=== PATIENT | male | born 1970 | race Caucasian/White ===

== ENCOUNTER 2019-12-31 09:18 | Outpatient (CLI) | payer BC, SELFPAY ==
[2019-12-31 09:34] LABS: Basophils Absolute Auto 0.03 K/mm3 (0.00-0.10); Basophils Percent Auto 0.5 % (0.0-1.0); Eosinophils Absolute Auto 0.14 K/mm3 (0.02-0.50); Eosinophils Percent Auto 2.4 % (1.0-6.0); Hematocrit 39.9 % (40.0-54.0); Hemoglobin 12.8 g/dL (14.0-18.0); Immature Granulocyte Absolute 0.02 K/mm3 (0.00-0.00); Immature Granulocyte Percent A 0.3 % (0.0-0.0); Lymphocytes Absolute Auto 1.71 K/mm3 (1.10-4.50); Lymphocytes Percent Auto 29.8 % (18.0-42.0); Mean Corpuscular HGB Conc 32.1 g/dL (32.0-36.0); Mean Corpuscular Hemoglobin 28.3 pg (27.0-31.0); Mean Corpuscular Volume 88.1 fL (78.0-102.0); Mean Platelet Volume 9.4 fl (8.7-11.0); Monocytes Absolute Auto 0.51 K/mm3 (0.10-0.90); Monocytes Percent Auto 8.9 % (2.0-11.0); Neutrophils Absolute Auto 3.3 K/mm3 (1.7-7.2); Neutrophils Percent Auto 58.1 % (50.0-70.0); Platelet Count Result 288 K/mm3 (150-420); Red Blood Count 4.53 M/mm3 (4.70-6.10); Red Cell Distribution Width 13.6 % (11.6-14.4); White Blood Count 5.7 K/mm3 (4.8-10.8)
[2019-12-31 10:33] LABS: Rheumatoid Factor Screen Negative (Negative)
[2019-12-31 11:02] LABS: Alanine Aminotransferase 24 U/L (16-63); Albumin Level 3.1 g/dL (3.4-5.0); Alkaline Phosphatase 87 U/L (46-116); Anion Gap 9 mmol/L (8-16); Aspartate Amino Transferase 19 U/L (15-37); Bilirubin,Total 0.2 mg/dL (0.00-1.00); Blood Urea Nitrogen 27 mg/dL (7-18); Calcium 8.4 mg/dL (8.5-10.1); Carbon Dioxide 27 mmol/L (21-32); Chloride 105 mmol/L (98-108); Cholesterol 135 mg/dL (0-200); Estimated Glomerular Filt Rate > 60; Glucose 84 mg/dL (70-99); HDL Direct 54 mg/dL (40-60); LDL Cholesterol Calculated 74 mg/dL (<130); Osmolality Calculated 296 mOsm/kg (285-295); Potassium 4.1 mmol/L (3.5-5.1); Sodium 141 mmol/L (136-145); Total Protein 6.7 g/dL (6.4-8.2); Triglycerides 37 mg/dL (0-150); Uric Acid 10.7 mg/dL (3.5-7.2)
== END 2019-12-31 09:19 | disposition home or self-care (01) ==
PROVIDERS: PCP Nurse Practitioner Family; Visit Provider Nurse Practitioner Family
DX: M10.9 Gout, unspecified (principal); M25.50 Pain in unspecified joint; I10 Essential (primary) hypertension; Z12.11 Encounter for screening for malignant neoplasm of colon; Z12.12 Encounter for screening for malignant neoplasm of rectum
CPT/HCPCS: 36415; 80053; 80061; 84550; 85025; 86430

== ENCOUNTER 2020-03-25 10:57 | Outpatient (CLI) | payer BC, SELFPAY ==
[2020-03-27 15:56] LABS: SARS-CoV-2 RNA PCR Negative
== END 2020-03-25 10:58 | disposition home or self-care (01) ==
LOC: CHSLAB 10:59
PROVIDERS: PCP Family Medicine; Visit Provider Family Medicine
DX: U07.1 COVID-19 (principal)
CPT/HCPCS: 87635; C9803; U0003

== ENCOUNTER 2020-10-06 11:52 | Outpatient (CLI) | payer OTHER, SELFPAY ==
[2020-10-06 12:09] LABS: Basophils Absolute Auto 0.04 K/mm3 (0.00-0.10); Basophils Percent Auto 0.7 % (0.0-1.0); Eosinophils Absolute Auto 0.18 K/mm3 (0.02-0.50); Eosinophils Percent Auto 3.1 % (1.0-6.0); Hematocrit 43.2 % (40.0-54.0); Hemoglobin 15.1 g/dL (14.0-18.0); Immature Granulocyte Absolute 0.02 K/mm3 (0.00-0.00); Immature Granulocyte Percent A 0.3 % (0.0-0.0); Lymphocytes Absolute Auto 0.89 K/mm3 (1.10-4.50); Lymphocytes Percent Auto 15.2 % (18.0-42.0); Mean Corpuscular Hemoglobin 30.9 pg (27.0-31.0); Mean Corpuscular Volume 88.5 fL (78.0-102.0); Mean Platelet Volume 9.3 fl (8.7-11.0); Monocytes Absolute Auto 0.52 K/mm3 (0.10-0.90); Monocytes Percent Auto 8.9 % (2.0-11.0); Neutrophils Absolute Auto 4.2 K/mm3 (1.7-7.2); Neutrophils Percent Auto 71.8 % (50.0-70.0); Platelet Count Result 287 K/mm3 (150-420); Red Blood Count 4.88 M/mm3 (4.70-6.10); Red Cell Distribution Width 12.3 % (11.6-14.4); White Blood Count 5.8 K/mm3 (4.8-10.8)
[2020-10-06 12:54] LABS: Rheumatoid Factor Screen Negative (Negative)
[2020-10-06 13:11] LABS: Alanine Aminotransferase 25 U/L (16-63); Albumin Level 3.6 g/dL (3.4-5.0); Alkaline Phosphatase 90 U/L (46-116); Anion Gap 10 mmol/L (8-16); Aspartate Amino Transferase 19 U/L (15-37); Bilirubin,Total 0.4 mg/dL (0.00-1.00); Blood Urea Nitrogen 18 mg/dL (7-18); Calcium 8.8 mg/dL (8.5-10.1); Carbon Dioxide 27 mmol/L (21-32); Chloride 100 mmol/L (98-108); Cholesterol 149 mg/dL (0-200); Estimated Glomerular Filt Rate > 60; Glucose 91 mg/dL (70-99); HDL Direct 50 mg/dL (40-60); LDL Cholesterol Calculated 89 mg/dL (<130); Osmolality Calculated 285 mOsm/kg (285-295); Potassium 4.7 mmol/L (3.5-5.1); Sodium 137 mmol/L (136-145); Thyroid Stimulating Hormone 0.63 uIU/mL (0.36-3.74); Triglycerides 52 mg/dL (0-150)
[2020-10-06 14:56] LABS: Erythrocyte Sedimentation Rate 17 mm/hr (0-20)
[2020-10-16 09:51] LABS: ANA Cascade Screen Negative (Negative)
== END 2020-10-06 11:53 | disposition home or self-care (01) ==
LOC: CHSLAB 11:56
PROVIDERS: PCP Nurse Practitioner Family; Visit Provider Nurse Practitioner Family
DX: M25.50 Pain in unspecified joint (principal); I10 Essential (primary) hypertension
CPT/HCPCS: 36415; 80053; 80061; 84443; 85025; 85652; 86038; 86430

== ENCOUNTER 2020-11-01 12:03 | Outpatient (CLI) | payer OTHER, SELFPAY ==
--- NOTE | ~2020-11-01 | XR_ITS ---
XR hand BI arthritis min 3V DATE: 11/01/2020 12:30 INDICATION: Bilateral hand swelling, pain TECHNIQUE: 4 views of each hand COMPARISON: None FINDINGS: Right hand: There is polyarticular osteoarthritis, particularly at the second and fifth metacarpophalangeal joint s and proximal interphalangeal joint of the second digit. No fracture or dislocation, periosteal reaction or bone destruction. Left hand: Osteoarthritic change is noted at the third metacarpophalangeal joint and proximal interphalangeal cyndi int of the third digit primarily. No fracture, dislocation, periosteal reaction or bone destruction. IMPRESSION: Bilateral osteoarthritis, right greater than left Reviewed, dictated and finalized at location A.
[2020-11-01 12:39] LABS: Uric Acid 10.2 mg/dL (3.5-7.2)
[2020-11-01 13:29] LABS: Erythrocyte Sedimentation Rate 32 mm/hr (0-20)
[2020-11-04 10:59] LABS: CRP, High Sensitivity >10.0 mg/L (***)
== END 2020-11-01 12:04 | disposition home or self-care (01) ==
LOC: CHSLAB 12:06
PROVIDERS: PCP Nurse Practitioner Family; Visit Provider Nurse Practitioner Family
DX: M25.50 Pain in unspecified joint (principal); M79.643 Pain in unspecified hand
CPT/HCPCS: 36415; 73130; 84550; 85652; 86141

== ENCOUNTER 2021-01-20 14:20 | Outpatient (CLI) | payer OTHER, SELFPAY ==
--- NOTE | ~2021-01-20 | XR_ITS ---
EXAMINATION: XR knee LT 3V DATE: 01/20/2021 15:00 INDICATION: Left knee pain. Fall. TECHNIQUE: 3 views of left knee on 4 radiographs were obtained. COMPARISON: None. FINDINGS: Bone alignment is normal. No fracture. There is mild tricompartmental osteoarthritis charac terized by tiny marginal osteophytes. No joint space. No knee joint effusion. There is prepatellar so ft tissue swelling. IMPRESSION: 1. Mild left knee osteoarthritis. Reviewed, dictated and finalized at location A.
--- NOTE | ~2021-01-20 | XR_ITS ---
EXAMINATION: XR elbow LT min 3V DATE: 01/20/2021 14:59 INDICATION: Left elbow pain. Fall. TECHNIQUE: 4 views of left elbow were obtained. COMPARISON: None. FINDINGS: Bone alignment is normal. No fracture. Joint spaces are well maintained. There is no elbow joint effusion. There is soft tissue swelling overlying the olecranon. IMPRESSION: 1. No fracture. Reviewed, dictated and finalized at location A. IMPRESSION: 1. No fracture.
[2021-01-20 14:35] LABS: Hematocrit 45.9 % (40.0-54.0); Hemoglobin 15.8 g/dL (14.0-18.0); Mean Corpuscular HGB Conc 34.4 g/dL (32.0-36.0); Mean Corpuscular Hemoglobin 30.3 pg (27.0-31.0); Mean Corpuscular Volume 87.9 fL (78.0-102.0); Mean Platelet Volume 9.9 fl (8.7-11.0); Platelet Count Result 244 K/mm3 (150-420); Red Blood Count 5.22 M/mm3 (4.70-6.10); Red Cell Distribution Width 13.3 % (11.6-14.4); White Blood Count 12.2 K/mm3 (4.8-10.8)
[2021-01-20 16:23] LABS: Alanine Aminotransferase 33 U/L (16-63); Albumin Level 3.9 g/dL (3.4-5.0); Alkaline Phosphatase 87 U/L (46-116); Anion Gap 13 mmol/L (8-16); Aspartate Amino Transferase 15 U/L (15-37); Bilirubin,Total 0.7 mg/dL (0.00-1.00); Blood Urea Nitrogen 26 mg/dL (7-18); Calcium 8.9 mg/dL (8.5-10.1); Carbon Dioxide 24 mmol/L (21-32); Chloride 100 mmol/L (98-108); Estimated Glomerular Filt Rate > 60; Glucose 183 mg/dL (70-99); Osmolality Calculated 293 mOsm/kg (285-295); Potassium 4.7 mmol/L (3.5-5.1); Sodium 137 mmol/L (136-145); Total Protein 7.1 g/dL (6.4-8.2)
--- NOTE | 2021-01-24 08:35 | WPDHOLTEREM ---
Holter/Event Monitor Holter/Event Monitor Date of procedure: 01/20/21 Holter/Event Procedure: 48 Hr Holter Monitor Indications: Syncope Conclusion: 1. 48 hour holter monitor on 01/20/21. 2. Predominant rhythm is sinus rhythm. HR range 60-140 bpm; average HR 88 bpm. 3. There are 50 premature supraventricular complexes and 1 supraventricular couplet. There is one episode of atrial tachycardia at 154 bpm lasting 10 beats at 08:58. 4. There are 2 premature ventricular complexes. No ventricular tachycardia. 5. No sinoatrial or atrioventricular blocks. No significant pauses greater than 2 seconds. 6. Patient reports symptoms of anxious/hot, dizziness/weak, chest heaviness which demonstrate sinus rhythm, HR range 88-106 bpm.
== END 2021-01-20 14:21 | disposition home or self-care (01) ==
PROVIDERS: PCP Family Medicine; Visit Provider Family Medicine
DX: R55 Syncope and collapse (principal); M25.522 Pain in left elbow; M25.562 Pain in left knee
CPT/HCPCS: 36415; 73080; 73562; 80053; 85027; 93225; 93226

== ENCOUNTER 2021-01-26 13:14 | Outpatient (CLI) | payer OTHER, SELFPAY ==
--- NOTE | 2021-01-26 14:09 | ECHO_ITS ---
Patient Info Name: Ap Briscoe Age: 50 years : 1970 Gender: Male Ht: 71 in Wt: 283 lbs BSA: 2.59 m2 HR: 89 bpm BP: 128 / 79 mmHg Exam Date: 01/26/2021 1:16 PM Exam Location: [facility] Patient Status: Outpatient Admit Date: 01/26/2021 Staff Ordering Physician: Angelo Morgan DO Master Scheduler: Justice Ochoa RDCS, RT Attending Provider: Angelo Morgan DO Referring Physician: Cathy ESCOBAR; Exam Type: CA echo doppler color flow Study Info Indications R55 - Syncope and collapse Complete two-dimensional, color flow and Doppler transthoracic echocardiogram is performed. Strain analysis performed. Summary 1. Complete two-dimensional, color flow and Doppler transthoracic echocardiogram is performed. 2. Left ventricular chamber dimension is normal. 3. Left ventricular systolic function is normal, estimated at 55-60%. 4. The left ventricular diastolic function is normal. 5. E/e' 9 is minimally elevated. 6. Global longitudinal strain is abnormal at -14.2%. Left Ventricle E/e' 9 is minimally elevated. Global longitudinal strain is abnormal at -14.2%. Left ventricular chamber dimension is normal. Left ventricular systolic function is normal, estimated at 55-60%. The left ventricular diastolic function is normal. Right Ventricle Right ventricular systolic function is normal and with normal TAPSE 2.0 cm. Right ventricular chamber dimension is normal. Left Atria Left atrial chamber dimension is normal. Right Atria Right atrial chamber dimension is normal. Aortic Valve The aortic valve is trileaflet. There is no aortic valve stenosis. There is no aortic valve regurgitation. Pulmonic Valve There is no pulmonic regurgitation. Mitral Valve There is no mitral valve stenosis. There is no mitral valve regurgitation. Tricuspid Valve There is no tricuspid valve regurgitation. Pericardium/Pleural There is no pericardial effusion. Inferior Vena Cava Normal inferior vena cava with >50% collapse upon inspiration consistent with normal right atrial pressure, 5 mmHg. Aorta The aortic root size at the sinus of Valsalva is normal. Left Ventricular Outflow Tract Name Value Normal LVOT 2D LVOT Diameter 2.1 cm LVOT Doppler LVOT Peak Velocity 115 cm/s LVOT Peak Gradient 5 mmHg LVOT Mean Gradient 2 mmHg LVOT VTI 20 cm LVOT VTI/AV VTI Ratio 0.8 LVOT Stroke Volume 73 ml Mitral Valve Name Value Normal MV Doppler MV Decel Story 425 cm/s2 MV PHT 65 ms MV Area (PHT) 3.4 cm2 4.0-5.0 MV Diastolic Function
== END 2021-01-26 13:15 | disposition home or self-care (01) ==
PROVIDERS: PCP Nurse Practitioner Family; Visit Provider Family Medicine
DX: R55 Syncope and collapse (principal)
CPT/HCPCS: 93306

== ENCOUNTER 2021-02-01 10:16 | Outpatient (CLI) | payer OTHER, SELFPAY ==
--- NOTE | ~2021-02-01 | MR_ITS ---
EXAMINATION: MR knee LT wo con DATE: 02/01/2021 11:06 INDICATION: Anterior left knee pain TECHNIQUE: Magnetic resonance imaging (MRI) of the left knee was performed without intravenous contra st. Sequences included coronal PD-weighted FSE, coronal PD-weighted FS FSE, sagittal T2-weighted FSE , sagittal PD-weighted FS FSE and axial PD weighted fat saturated FSE. COMPARISON: Left knee radiographs dated 01/20/2021 FINDINGS: Medial compartment: Longitudinal horizontal tear extending to the inferior articular surface near the free edge of the po sterior horn of the medial meniscus. Partial-thickness chondral ulceration with mild chondral surfac e regularity and minimal subarticular edema along the lateral rim of the anterior to central weightbe aring medial femoral condyle. Mild subarticular edema along the posterior medial rim of the medial ti bial plateau with subtle concavity of the overlying articular cortex. The contour abnormality suspici ous for minimally depressed fracture although the degree of fluid signal is significantly less than w ould be expected for an acute injury. There is an osteochondral lesion with double line sign at the p osterior weightbearing lateral femoral condyle which measures 13 mm craniocaudal and 7 mm medial to l ateral. No disruption of the cortex, cartilage or fluid signal intensity cleft to suggest an unstable fragment in situ. Lateral compartment: Lateral meniscus is normal. Small region of deep chondral fissuring with mild underlying subarticular cystic change at the lateral tibial plateau underlying the anterior margin of the posterior horn of the lateral meniscus. Patellofemoral compartment: Patellar chondral ulceration and fissuring centered at the patellar apical ridge and medial side of t he lateral patellar facet where it reaches full-thickness with underlying cortical irregularity and s ubarticular cystic change. Trochlear cartilage is normal. Ligaments and tendons: Anterior and posterior cruciate ligaments are normal. The medial collateral ligament and fibular jeferson ateral ligament complex are normal. Mild tendinopathy without discrete tear at the distal quadriceps and proximal patellar tendons. The visualized medial and lateral hamstring tendons as well as the thom otibial band are normal. Fluid: Minimal left knee joint effusion at the medial and lateral gutters of the suprapatellar pouch. No loo se osteochondral bodies identified. Mild prepatellar edema without a discrete bursal fluid collection . Osseous/other: Bone alignment is normal. No acute fracture or pathologic marrow replacing process. IMPRESSION: 1. Longitudinal horizontal tear of the posterior horn of the medial meniscus. 2. Patellofemoral predominant tricompartmental osteoarthritis with high-grade patellar chondromalacia and more subtle small regions of high-grade chondral malacia along the lateral tibial plateau and we ightbearing medial femoral condyle. 3. Small stable appearing osteochondral lesion along the articular cortex of the posterior weightbear ing medial femoral condyle. 4. Minimal edema underlying a subtle shallow concavity along the articular cortex at the posterior me dial rim of the medial tibial plateau which suggests a subacute to early chronic impaction, stress or insufficiency fracture. Reviewed, dictated and finalized at location A. IMPRESSION: 1. Longitudinal horizontal tear of the posterior horn of the medial meniscus. 2. Patellofemoral predominant tricompartmental osteoarthritis with high-grade p atellar chondromalacia and more subtle small regions of high-grade chondral mal acia along the lateral tibial plateau and weightbearing medial femoral condyle. 3. Small stable appearing osteochondral lesion along the articu
== END 2021-02-01 10:17 | disposition home or self-care (01) ==
LOC: CHSIMG 10:18
PROVIDERS: PCP Family Medicine; Visit Provider Family Medicine
DX: M25.562 Pain in left knee (principal)
CPT/HCPCS: 73721

== ENCOUNTER 2021-02-06 08:42 | Outpatient (CLI) | payer OTHER, SELFPAY ==
--- NOTE | 2021-02-06 08:47 | EST_ITS ---
Patient Info Name: Ap Briscoe Age: 50 years : 1970 Gender: Male Ht: 71 in Wt: 283 lbs BSA: 2.59 m2 HR: 60 bpm BP: 104 / 58 mmHg Heart Rhythm: Sinus Rhythm Technical Quality: Excellent Exam Date: 02/06/2021 9:42 AM Exam Location: [facility] Patient Status: Outpatient Admit Date: 02/06/2021 Staff Ordering Physician: Angelo Morgan DO Attending Provider: Angelo Morgan DO Exercise Technologist: Gia Hatch CRT Exercise Physician: Beba Schmidt CEP Exam Type: CA stress sage w NM Study Info Indications Syncope - A nuclear stress test was performed. History/Risk Factors Hypertension: Yes Tobacco Use: Former Dialysis: None History/Risk Factors Hypertension. Former Smoker. Summary 1. 1. Negative lexiscan stress test for ischemic ST changes by ECG criteria. 2. 2. Stable hemodynamics throughout the test. 3. 3. Nuclear scan to follow and will be reported separately. Please correlate with it. Protocol: LEXISCAN Stress ECG Details Stage: REST Duration (min): 1 min : 24 sec HR (bpm): 58 SBP (mmHg): 104 DBP (mmHg): 58 Stage: REST Duration (min): 4 min : 57 sec HR (bpm): 68 SBP (mmHg): 104 DBP (mmHg): 58 Stage: STAGE 1 Duration (min): 0 min : 11 sec HR (bpm): 60 SBP (mmHg): 104 DBP (mmHg): 58 Stage: RECOVERY Duration (min): 0 min : 48 sec HR (bpm): 95 SBP (mmHg): 104 DBP (mmHg): 58 Stage: RECOVERY Duration (min): 1 min : 48 sec HR (bpm): 93 SBP (mmHg): 106 DBP (mmHg): 58 Stage: RECOVERY Duration (min): 2 min : 48 sec HR (bpm): 83 SBP (mmHg): 98 DBP (mmHg): 56 Stage: RECOVERY Duration (min): 3 min : 48 sec HR (bpm): 92 SBP (mmHg): 99 DBP (mmHg): 56 Stage: RECOVERY Duration (min): 4 min : 48 sec HR (bpm): 88 SBP (mmHg): 101 DBP (mmHg): 56 Stage: RECOVERY Duration (min): 5 min : 48 sec HR (bpm): 77 SBP (mmHg): 98 DBP (mmHg): 59 Stage: RECOVERY Duration (min): 6 min : 2 sec HR (bpm): 88 SBP (mmHg): 98 DBP (mmHg): 59 Rest HR: 68 bpm Peak HR: 97 bpm Rest Sys BP: 104 mmHg Peak Sys BP: 106 mmHg Max Pred HR: 169 bpm % Max Pred HR: 57 % Target HR: 144 bpm Max RPP: 10,282 bpm*mmHg Termination Reason: Completion of Protocol Cardiac Symptoms: Dyspnea Total Time: 0 min : 11 sec Rest Trimble BP: 58 mmHg Peak Trimble BP: 58 mmHg Total Dose: 0.4 mg Resting ECG Normal sinus rhythm, low voltage in precordial leads. Stress ECG No ST changes. Arrhythmias No arrhythmias were observed during the examination. Report Signatures
--- NOTE | 2021-02-06 13:27 | WPDCARIOSTRE ---
Nuclear Stress Test INDICATIONS Indications: Syncope PROCEDURE Procedure Performed: Myocardial Perf Spect-Multi Procedure: Patient underwent a lexiscan stress test and immediately was injected with 34.3 mCi of cardiolyte. Multiple tomographic images are obtained. These are of good quality. There is evidence of large size, severe inferior perfusion defect and small size, mild anterior perfusion defect with stress imaging. A separate resting images were obtained after patient was injected with 10.5 mCi of cardiolyte. Multiple tomographic images are obtained. These are of good quality. There is evidence of large size, severe inferior perfusion defect with rest imaging. CONCLUSION Conclusion: 1. Abnormal myocardial perfusion imaging demonstrating small size, mild anterior perfusion defect consistent with reversible ischemia. There is evidence of fixed large size inferior defect suggestive of diaphragmatic attenuation artifact. 2. Left ventriculogram demonstrates normal measured ejection fraction at 52%. No wall motion abnormalities. 3. TID score is normal at 1.19.
== END 2021-02-06 08:43 | disposition home or self-care (01) ==
LOC: CHSIMG 08:44
PROVIDERS: PCP Family Medicine; Visit Provider Family Medicine
DX: R06.02 Shortness of breath (principal)
CPT/HCPCS: 78452; 93017; A9502; J2785

== ENCOUNTER → 2021-02-27 03:35 | Outpatient (CLI) | payer OTHER, SELFPAY ==
[2021-02-27 20:20] LABS: SARS-CoV-2 RNA PCR Negative
== END ==
PROVIDERS: PCP Family Medicine; Visit Provider Internal Medicine Cardiovascular Disease
DX: Z01.812 Encounter for preprocedural laboratory examination (principal); Z20.822 Contact with and (suspected) exposure to COVID-19
CPT/HCPCS: C9803; U0003; U0005

== ENCOUNTER 2021-03-02 00:54 | Day surgery (SDC) | payer OTHER, SELFPAY ==
[2021-03-01 14:40] VITALS: BMI 42.0
[2021-03-02] VITALS (9 sets, daily range): BP systolic 123–135; BP diastolic 73–96; PULSE 55–73; RESP 12–16; TEMP 36.4; O2SAT 93–98; BMI 43.3
[2021-03-02 09:46] LABS: Basophils Percent Auto 0.4 % (0.2-1.2); Hemoglobin 15.3 g/dL (14.0-18.0); Immature Granulocyte Absolute 0.15 K/mm3 (0.00-0.031); Immature Granulocyte Percent A 1.9 % (0-0.5); Lymphocytes Absolute Auto 0.79 K/mm3 (0.9-3.2); Mean Corpuscular Hemoglobin 31.2 pg (26-34); Mean Corpuscular Volume 91.8 fl (80-100); Mean Platelet Volume 9.5 fl (7.4-10.4); Monocytes Absolute Auto 0.4 K/mm3 (0.1-0.6); Monocytes Percent Auto 5.2 % (2.6-8.5); Neutrophils Absolute Auto 6.5 K/mm3 (1.3-6.7); Neutrophils Percent Auto 82.5 % (45.5-73.1); Platelet Count Result 290 k/mm3 (150-375); Red Cell Distribution Width 14.5 % (11.5-14.5); White Blood Count 7.9 K/mm3 (4.5-10.0)
[2021-03-02 09:56] LABS: Anion Gap 10 mmol/L (8-16); Blood Urea Nitrogen 21 mg/dL (9-20); Calcium 9.4 mg/dL (8.4-10.2); Carbon Dioxide 24 mmol/L (22-30); Chloride 103 mmol/L (98-107); Estimated CRCL calculation 122 ml/min; Estimated Glomerular Filt Rate > 60; Glucose 139 mg/dL (65-110); INR 0.9; Potassium 4.4 mmol/L (3.4-5.0); Prothrombin Time 11.8 Seconds (11.1-14.7); Sodium 137 mmol/L (137-145)
--- NOTE | 2021-03-02 10:05 | WPDHPUPDATE1 ---
History and Physical Update Update Date/Time: 03/02/21 10:05 History and Physical has been reviewed, including an updated exam of the patient. There are NO changes in the patient's condition. Risks, benefits, and alternatives have been discussed and questions answered. Patient agrees to proceed with procedure.
--- NOTE | 2021-03-02 10:05 | WPDMODSED ---
Moderate Sedation Note-Pt Data Patient Data Allergies Allergy/AdvReac Type Severity Reaction Status Date / Time No Known Allergies Allergy Verified 03/01/21 14:27 Home Medications Medication Instructions Recorded Confirmed Type lisinopril 20 1 tablet PO DAILY #90 tablet 04/28/20 03/01/21 Rx mg-hydrochlorothiazide 25 mg tablet tizanidine 2 mg capsule 2 mg PO TID PRN #30 cap 04/28/20 03/01/21 Rx allopurinol 100 mg tablet See Rx Instructions .ROUTE 01/11/21 03/01/21 History .COMPLEX tablet colchicine 0.6 mg tablet 0.6 mg PO DAILY PRN tablet MDD 4 01/11/21 03/01/21 History meclizine 25 mg tablet 25 mg PO BID PRN #30 tablet 01/11/21 03/01/21 Rx prednisone 10 mg tablet 5 mg PO DAILY tablet 01/11/21 03/01/21 History tramadol 50 mg tablet 50 mg PO Q8H PRN tablet 01/11/21 03/01/21 History aspirin 81 mg tablet,delayed 81 mg PO DAILY #90 tablet 02/07/21 03/01/21 Rx release atorvastatin 40 mg tablet 40 mg PO DAILY #90 tablet 02/07/21 03/01/21 Rx venlafaxine 75 mg capsule,extended See Rx Instructions .ROUTE 02/27/21 03/01/21 Rx release 24 hr .COMPLEX #30 cap Current Medications: Active Medications Sodium Chloride (Normal Saline Iv) 500 mls @ 100 mls/hr IV CONT .Q5H TERESO Sedation/Anesthesia: No previous sedation/anesthesia problems (including family history). [facility] Past Medical History Medical History Benign hypertension (04/11/11) Depression Diffuse arthralgia (04/09/13) Exposure to COVID-19 virus Gout, unspecified (02/11/15) Intermittent claudication (03/06/13) Right sided sciatica Family History Family History Father , 53 Family history of coronary artery disease Acute myocardial infarction Mother , 61 Brain tumor Social History Social History Smoking status: Former smoker Alcohol intake: current Substance use: never Substance use type: does not use Gender identity (if verbalized by the patient): Male Mod Sed Physical Exam Physical Exam Pre Procedural Exam: Normal: Appearance, Eyes, Ears, Nose, Neck, Throat, Airway, Lungs, Heart Size, Heart Rate, Heart Rhythm, Neuro Exam, Abdomen, Liver, Kidneys, Spleen, Breasts, Genitalia, Extremities and Skin Hours since solid foods: 8 Hours since liquid intake: 8 Mallampati Classification: class 1 Internal Medicine - PN: Obj Da Vital Signs Vital Signs: Vital Signs - 24 hr 03/02/21 09:49 Temperature 36.4 C Pulse Rate 72 Respiratory Rate 12 Blood Pressure 123/80 Pulse Oximetry 97 Meds/Results Medications: Active Medications Generic Name Dose Route Start Last Admin Trade Name Freq PRN Reason Stop Dose Admin Sodium Chloride 500 mls @ 100 mls/hr 03/02/21 09:00 Normal Saline Iv IV CONT .Q5H TERESO Labs CBC & Chem 7: 03/02/21 09:36 03/02/21 09:37 Labs: Laboratory Results - last 24 hr 03/02/21 03/02/21 03/02/21 09:36 09:37 09:37 WBC 7.9 RBC 4.90 Hgb 15.3 Hct 45.0 MCV 91.8 MCH 31.2 MCHC 34.0 RDW 14.5 Plt Count 290 MPV 9.5 Immature Gran % (Auto) 1.9 H Neut % (Auto) 82.5 H Lymph % (Auto) 10.0 L [place] % (Auto) 5.2 Eos % (Auto) 0.0 Baso % (Auto) 0.4 Lymph # (Auto) 0.79 L [place] # (Auto) 0.4 Eos # (Auto) 0.0 Baso # (Auto) 0.0 Abs Immat Gran (auto) 0.15 H Absolute Neuts (auto) 6.5 Absolute Nucleated RBC 0.0 Nucleated RBC % 0.0 PT 11.8 INR 0.9 Sodium 137 Potassium 4.4 Chloride 103 Carbon Dioxide 24 Anion Gap 10 BUN 21 H Creatinine 0.90 Estim Creat Clear Calc 122 Estimated GFR > 60 Glucose 139 H Calcium 9.4 ASA Classification/Sedation ASA Classification/Sedation ASA Class: I Emergent: No Risks: Risks, benefits and alternatives explained and patient/family accepted plan for sedati
--- NOTE | 2021-03-02 10:05 | WPDCARDPROC ---
Cardiac Cath Procedure Note Date of procedure:: 03/02/21 Performing physician:: Luis Armando Morrison MD Date of service 03/02/2021 Indication:: syncope Brief clinical history:: 50 old patient with past history of obesity, gout, hypertension, who had couple episodes of syncope. Then he experiences chest discomfort on exertion with shortness of breath. Underwent stress test that shows anterior ischemia. Strong family history for CAD. He smoked for a total of 15 years and quit several years ago. Procedure Procedure performed:: 1-Moderate sedation that started at and ended at using mg of Versed and mg fentanyl. The registered nurse was 2-Selective left and right coronary angiogram. 3-Left heart catheterization with measurement of LVEDP and measurement of gradient across aortic valve. 4- LV angiogram. 4-Right common femoral arterial angiogram. 5-Deployment of 6 Yoruba Angio-Seal. Sedation/Medication given:: Moderate sedation. Access site:: Right common femoral artery. Estimated blood loss:: 10cc Procedure note:: After informed consent patient was brought in to quality assurance qa lab technician with the was draped and prepped in usual manner. Moderate sedation was given and the right groin was infiltrated using 1% lidocaine. Five Yoruba sheath was obtained using micropuncture needle and the modified Seldinger technique. Selective left coronary angiogram was done using JL4 catheter with the tip of the catheter placed in the left main coronary artery. Selective right coronary angiogram was done using JR4 catheter with the tip of the catheter placed to the right coronary artery. After that 5 Yoruba pigtail catheter was advanced across the aortic valve into the left ventricle with measurement of LVEDP and measurement of gradient across aortic valve. LV angiogram was done as well.Right common femoral arterial angiogram was done. Findings:: 1- left coronary artery is a large artery that divides into large LAD, large circumflex artery. Left main is Free of disease. It is a short artery. 2- left anterior descending artery is a large artery that runs It stops before the apex. Free of disease. Small diagonal 1 branch looks unremarkable and medium to large diagonal 2 branch looks unremarkable. 3- leftcircumflex artery is a large artery And codominant and free of disease. Large OM1 and OM2 free of disease and small to medium size left PDA looks unremarkable. 4- right coronary artery is Medium-sized artery and codominant and free of disease. 5- LVEDP was 15 mmHg and no gradient across aortic valve. 6- opening arterial pressure was 130/80 and closing pressure was 120/80. 7- LV angiogram shows normal LV systolic function and normal ascending aorta. 7- right femoral artery angiogram shows no significant disease in the right common femoral artery. Conclusion:: - no coronary artery disease. - false-positive stress test. Assessment and Plan Additional Plan continue aggressive risk factor modification for CAD. - encourage weight loss
--- NOTE | 2021-03-02 13:32 | SUR.PHASEII ---
Addendum entered by Enrike Feng RN 03/02/21 13:42: Pt departs via wheelchair to private car where is to drive patient home from today's visit. Pt aware he is not to drive. Original Note: DC instructions, limitations and restrictions reviewed with patient. Pt verbalized understanding of instructions. All of pt. questions answered. Site remains free of pain, soft and nontender. Dressing is clean, dry, and intact. IV removed, catheter intact, bleeding controlled. VSS at MS.
== END 2021-03-02 13:32 | disposition home or self-care (01) ==
PROVIDERS: PCP Family Medicine; Visit Provider Internal Medicine Cardiovascular Disease
PROC: 4A023N7 Measurement of Cardiac Sampling and Pressure, Left Heart, Percutaneous Approach (ICD-10-PCS; CPT 93452; principal; 2021-03-02 10:30)
DX: R94.39 Abnormal result of other cardiovascular function study (principal); R55 Syncope and collapse; R07.89 Other chest pain; R06.02 Shortness of breath; I10 Essential (primary) hypertension; M10.9 Gout, unspecified; F32.9 Major depressive disorder, single episode, unspecified; Z82.49 Family history of ischemic heart disease and other diseases of the circulatory system; E66.9 Obesity, unspecified; Z68.41 Body mass index [BMI] 40.0-44.9, adult; Z79.82 Long term (current) use of aspirin; Z87.891 Personal history of nicotine dependence
CPT/HCPCS: 36415; 80048; 85025; 85610; 93458; C1760; C1887; C1894; C9803; G0269; J1644; J2250; J3010; J7040; U0003; U0005

== ENCOUNTER 2021-04-26 11:36 | Outpatient (CLI) | payer OTHER, SELFPAY ==
--- NOTE | ~2021-04-26 | XR_ITS ---
EXAMINATION: XR lumbar spine min 4V DATE: 04/26/2021 12:09 INDICATION: Low back pain TECHNIQUE: Anteroposterior, lateral, and bilateral oblique views of the lumbar spine, and cone-down l ateral view of the lumbosacral junction were obtained. COMPARISON: None. FINDINGS: Mild lumbar levocurvature is noted. There is no fracture, dislocation, or subluxation. The vertebral body heights and alignment are normal. There is mild loss of intervertebral disc space heig ht at L4-5 and L5-S1. Small degenerative osteophytes project from the anterior endplates of multiple vertebral bodies. IMPRESSION: 1. Mild lumbar spondylosis without acute findings. Reviewed, dictated and finalized at location A. NSION WORKER
[2021-04-26 12:23] LABS: Uric Acid 5.4 mg/dL (3.5-7.2)
== END 2021-04-26 11:37 | disposition home or self-care (01) ==
LOC: CHSLAB 11:39
PROVIDERS: PCP Family Medicine; Visit Provider Internal Medicine Rheumatology
DX: M10.9 Gout, unspecified (principal); M51.36 Other intervertebral disc degeneration, lumbar region; M54.16 Radiculopathy, lumbar region
CPT/HCPCS: 36415; 72110; 84550

== ENCOUNTER 2021-06-26 09:24 | Outpatient (CLI) | payer OTHER, SELFPAY ==
[2021-06-26 10:34] LABS: SARS-CoV-2 Ag Negative (Negative)
== END 2021-06-26 09:25 | disposition home or self-care (01) ==
LOC: CHSLAB 09:28
PROVIDERS: PCP Family Medicine; Visit Provider Internal Medicine Critical Care Medicine
DX: Z01.812 Encounter for preprocedural laboratory examination (principal); Z20.822 Contact with and (suspected) exposure to COVID-19
CPT/HCPCS: 87426; C9803

== ENCOUNTER 2021-06-28 19:29 | Outpatient (CLI) | payer OTHER, SELFPAY ==
--- NOTE | 2021-07-07 14:34 | WPDSLEEPSTUD ---
Sleep Study Date of Study: 06/28/21 Ordering Provider: Felice Edmondson APRN Interpreting Physician: Anna Avina MD Sleep Study Type: CPAP Titration Height: 1.8 m Weight: 142.882 kg Body Mass Index: 43.9 Neck Circumference (inches): 18 [place]: 14 Reason for Sleep Study Home sleep test with severe obstructive sleep apnea, now presents for a CPAP titration * 04/18/2021 [facility] Home sleep test with apnea-hypopnea index 38.7 lowest saturation 73% with 56 minutes below 88%. Sleep History Ap Briscoe Jr is a 51 year old man with constant loud snoring that causes others to complain. He frequently awakens at night with heartburn, belching or coughing. He rarely awakens from sleep feeling short of breath. He frequently has trouble sleeping with a cold. He rarely wakes up gasping for breath at night. He frequently has breathing problems at night observed by others. He constantly sweats excessively at night and frequently notices his heart pounding or beating irregularly at night. He frequently falls asleep during the day, occasionally falls asleep involuntarily but never falls asleep while driving. He occasionally has loss of muscle tone with strong emotion. He frequently has daytime difficulties due to excessive sleepiness. He does not feel paralyzed on waking or falling asleep. He rarely has vivid dreamlike scenes upon awakening or falling asleep. He does not feel afraid to go to sleep. He rarely has nightmares. He does not remember his dreams. He frequently has racing thoughts. He occasionally feels sad or depressed. He constantly has anxiety and muscular tension. He frequently notices parts of his body jerking, he frequently kicks at night and he frequently has crawling and aching feelings in his legs as well as leg pain during the night. He rarely has morning jaw pain. He rarely grinds his teeth during sleep. He frequently is bothered by pain during the day and frequently awakened by pain at night. He constantly wakes up feeling stiff in the morning, with sore or achy muscles and pain in the neck and spine. He has headaches, memory problems, concentration difficulties, fatigue and depression. Normal bedtime is 10:00 p.m. falling asleep within 30 minutes but sometimes taking up to 1 hour to fall asleep. He typically wakes up 3 times during the night. While awake he may watch television. It may take 2 hours to return to sleep. He wakes the morning at 6:00 a.m.. On weekends his bedtime is 9:00 a.m. and he wakes up at 2:00 p.m.. This is due to his schedule which includes working weekend midnights. He estimates getting between 4 and 6 hours of sleep at night. His sleep schedule such changes due to his work schedule which is 5:30 p.m. to 7:30 a.m. he takes naps in the afternoon or evening. A short nap is not refreshing. He feels better in the afternoon compared other times a day. He is drowsy for 3 hours after waking. Habits: No tobacco for 11 years. Caffeine 1 cup of coffee a day. Alcohol 2 cans of beer daily. No recreational drugs. [facility] Past Medical History Medical History (Updated 07/07/21 @ 19:42 by Anna Avina MD) Benign hypertension (04/11/11) Depression Diffuse arthralgia (04/09/13) Exposure to COVID-19 virus Gout, unspecified (02/11/15) Intermittent claudication (03/06/13) Obstructive sleep apnea Right sided sciatica Family History Family History Father , 53 Family history of coronary artery disease Acute myocardial infarction Mother , 61 Brain tumor Social History Social History (Updated 07/07/21 @ 14:46 by Anna Avina MD) Smoking status: Former smoker Additional smoking assessment comments: smoked 1 ppd x 15 years Alcohol intake: current Substance use: never Substance use type: does not use Gender identity (if verbalized by the patient): Male Medications Home Medications Medication I
[2021-07-07 19:48] VITALS: BMI 43.9
== END 2021-06-29 06:25 | disposition home or self-care (01) ==
LOC: CHSCSM 19:30
PROVIDERS: PCP Family Medicine; Visit Provider Nurse Practitioner Family
DX: G47.30 Sleep apnea, unspecified (principal)
CPT/HCPCS: 95811

== ENCOUNTER 2021-07-11 10:28 | Outpatient (CLI) | payer OTHER, SELFPAY ==
[2021-07-11 11:20] LABS: Ferritin 162 ng/mL (26-388)
== END 2021-07-11 10:29 | disposition home or self-care (01) ==
LOC: CHSLAB 10:30
PROVIDERS: PCP Family Medicine; Visit Provider Family Medicine
DX: G25.81 Restless legs syndrome (principal)
CPT/HCPCS: 36415; 82728

== ENCOUNTER 2022-01-24 16:04 | Outpatient (CLI) | payer OTHER, SELFPAY ==
--- NOTE | ~2022-01-24 | XR_ITS ---
XR hip RT 2V w AP pelvis DATE: 01/24/2022 16:35 INDICATION: Right hip pain for 2 to 3 weeks. No known injury. TECHNIQUE: AP pelvis. AP and lateral views of the right hip COMPARISON: None FINDINGS: Normal alignment at the pubic symphysis and sacroiliac joints. No pelvic fracture or bone d estruction. There is mild depression of the cortex of the femoral head superolaterally, with some patchy density of the right femoral head, consistent with avascular necrosis. Otherwise no fracture or dislocation of the right hip. Hip joint spaces are symmetric and relatively preserved. IMPRESSION: Avascular necrosis of the right femoral head Reviewed, dictated and finalized at location A.
--- NOTE | ~2022-01-24 | XR_ITS ---
XR sacrum coccyx min 2V DATE: 01/24/2022 16:35 INDICATION: Pain TECHNIQUE: AP, angled AP and lateral views COMPARISON: None FINDINGS: No fracture or bone destruction of the sacrum or coccyx is evident. Normal alignment at the sacroiliac joints and pubic symphysis. IMPRESSION: Negative Reviewed, dictated and finalized at location A. IMPRESSION: Negative
== END 2022-01-24 16:05 | disposition home or self-care (01) ==
LOC: CHSIMG 16:07
PROVIDERS: PCP Family Medicine; Visit Provider Family Medicine
DX: M25.551 Pain in right hip (principal)
CPT/HCPCS: 72220; 73502

== ENCOUNTER 2022-02-21 14:38 | Outpatient (CLI) | payer OTHER, SELFPAY ==
[2022-02-21 15:39] LABS: Hemoglobin A1C 5.4 % (<5.7)
== END 2022-02-21 14:39 | disposition home or self-care (01) ==
LOC: CHSLAB 14:41
PROVIDERS: PCP Family Medicine; Visit Provider Family Medicine
DX: E11.9 Type 2 diabetes mellitus without complications (principal)
CPT/HCPCS: 36415; 83036

== ENCOUNTER 2022-02-23 07:57 | Outpatient (CLI) | payer OTHER, SELFPAY ==
--- NOTE | ~2022-02-23 | XR_ITS ---
EXAMINATION: XR lg joint inject/asp w image DATE: 02/23/2022 09:07 INDICATION: Right hip arthritis. TECHNIQUE: A time-out was performed to verify the patient's name, date of , and procedure to b e performed. The procedure including the risks, benefits, and alternatives was discussed with the pat ient. Risks discussed included bleeding and infection. The patient understood the risks and agreed to proceed. The skin overlying the right hip joint was prepped and draped in usual sterile fashion. A nesthetic was administered with 1% lidocaine subcutaneously. A 22 G needle was advanced under fluoro scopic guidance into the joint. 4 mL yellow fluid was aspirated and discarded. Subsequently, injectat e consisting of 2 mL 0.5% bupivacaine and 2 mL 40 mg/mL Depo-Medrol was instilled. The needle was re moved and the entry site was cleaned and dressed. There were no immediate complications. Fluoroscopy exposure time was 0.1 minutes. The total number of images was 1. FINDINGS: Real-time fluoroscopy demonstrates the needle in the right hip joint. Patient's pain prior to procedure:10. Patient's pain following the procedure: 10. IMPRESSION: 1. Fluoroscopy guided right hip joint injection of local anesthetic and steroid. Reviewed, dictated and finalized at location B. IMPRESSION: 1. Fluoroscopy guided right hip joint injection of local anesthetic and steroid .
== END 2022-02-23 07:58 | disposition home or self-care (01) ==
LOC: CHSIMG 07:58
PROVIDERS: PCP Family Medicine; Visit Provider Orthopaedic Surgery
DX: M16.11 Unilateral primary osteoarthritis, right hip (principal)
CPT/HCPCS: 20610; 77002; J1030

== ENCOUNTER 2022-06-01 08:29 | Outpatient (CLI) | payer OTHER, SELFPAY ==
--- NOTE | ~2022-06-01 | XR_ITS ---
EXAMINATION: XR lg joint inject/asp w image DATE: 06/01/2022 09:35 INDICATION: Right hip arthritis presenting with pain TECHNIQUE: A time-out was performed to verify the patient's name, date of , and procedure to b e performed. The procedure including the risks, benefits, and alternatives was discussed with the pat ient. Risks discussed included bleeding and infection. The patient understood the risks and agreed to proceed. The skin overlying the right hip joint was prepped and draped in usual sterile fashion. A nesthetic was administered with 1% lidocaine subcutaneously. A 22 G needle was advanced under fluoro scopic guidance into the joint. Injection of 1 mL of Omnipaque 240 confirmed intra-articular positio n of the needle. Subsequently, injectate consisting of 4 mL of a 1:1 mixture of 0.5% bupivacaine 40 mg/mL Depo-Medrol for a total dosage of 20 mg Depo-Medrol was instilled. Washout of contrast was seen confirming intra-articular administration. The needle was removed and the entry site was cleaned and dressed. There were no immediate complications. Fluoroscopy exposure time was 0.1 minutes. The tota l number of images was 2. FINDINGS: Real-time fluoroscopy demonstrates the needle in the right hip joint. Patient's pain prior to procedure:7/. Patient's pain following the procedure: /. IMPRESSION: 1. Successful right hip joint injection of local anesthetic and steroid with decrease in the patient' s presenting pain. Reviewed, dictated and finalized at location A. ST REPRESENTATIVE IMPRESSION: 1. Successful right hip joint injection of local anesthetic and steroid with de crease in the patient's presenting pain.
== END 2022-06-01 08:30 | disposition home or self-care (01) ==
LOC: CHSIMG 08:30
PROVIDERS: PCP Family Medicine; Visit Provider Orthopaedic Surgery
DX: M16.11 Unilateral primary osteoarthritis, right hip (principal)
CPT/HCPCS: 20610; 77002; J1030

== ENCOUNTER 2023-04-23 11:18 | Outpatient (CLI) | payer OTHER, SELFPAY ==
--- NOTE | ~2023-04-23 | US_ITS ---
US soft tissue abdomen 04/23/2023 12:06 Indication: Abdominal pain. Evaluate for hernia. Procedure: High-resolution Limited soft tissue ultrasound Comparison: No prior studies for comparison. Findings: Normal soft tissue ultrasound of the abdominal wall. No discrete hernia identified. Impression: 1: No hernia identified. Reviewed, dictated and finalized at [facility]. UTER ASSISTANT Impression: 1: No hernia identified.
[2023-04-23 11:37] LABS: Basophils Absolute Auto 0.06 K/mm3 (0.00-0.10); Basophils Percent Auto 0.6 % (0.0-1.0); Eosinophils Absolute Auto 0.24 K/mm3 (0.02-0.50); Eosinophils Percent Auto 2.5 % (1.0-6.0); Hematocrit 50.3 % (40.0-54.0); Hemoglobin 17.1 g/dL (14.0-18.0); Immature Granulocyte Absolute 0.04 K/mm3 (0.00-0.00); Immature Granulocyte Percent A 0.4 % (0.0-0.0); Lymphocytes Absolute Auto 1.17 K/mm3 (1.10-4.50); Lymphocytes Percent Auto 12.1 % (18.0-42.0); Mean Corpuscular Hemoglobin 31.9 pg (27.0-31.0); Mean Corpuscular Volume 93.8 fL (78.0-102.0); Monocytes Percent Auto 12.4 % (2.0-11.0); Neutrophils Absolute Auto 6.9 K/mm3 (1.7-7.2); Platelet Count Result 280 K/mm3 (150-420); Red Blood Count 5.36 M/mm3 (4.70-6.10); Red Cell Distribution Width 12.4 % (11.6-14.4); White Blood Count 9.7 K/mm3 (4.8-10.8)
[2023-04-23 12:11] LABS: Alanine Aminotransferase 43 U/L (16-63); Albumin Level 3.8 g/dL (3.4-5.0); Alkaline Phosphatase 131 U/L (46-116); Anion Gap 10 mmol/L (8-16); Aspartate Amino Transferase 34 U/L (15-37); Bilirubin,Total 1.1 mg/dL (0.00-1.00); Blood Urea Nitrogen 11 mg/dL (7-18); Calcium 9.1 mg/dL (8.5-10.1); Carbon Dioxide 32 mmol/L (21-32); Chloride 96 mmol/L (98-108); Cholesterol 120 mg/dL (0-200); Estimated Glomerular Filt Rate > 60; Glucose 87 mg/dL (70-99); HDL Direct 66 mg/dL (40-60); LDL Cholesterol Calculated 41 mg/dL (<130); Osmolality Calculated 284 mOsm/kg (285-295); Potassium 3.6 mmol/L (3.5-5.1); Sodium 138 mmol/L (136-145); Total Protein 7.5 g/dL (6.4-8.2); Triglycerides 65 mg/dL (0-150)
[2023-04-24 10:31] LABS: CRP 14.6 mg/dL (0.0-0.9)
== END 2023-04-23 11:19 | disposition home or self-care (01) ==
PROVIDERS: PCP Family Medicine; Visit Provider Nurse Practitioner Family
DX: Z00.00 Encounter for general adult medical examination without abnormal findings (principal); R10.9 Unspecified abdominal pain
CPT/HCPCS: 36415; 76705; 80053; 80061; 85025; 86140

== ENCOUNTER 2023-04-24 11:40 | Outpatient (CLI) | payer OTHER, SELFPAY ==
--- NOTE | ~2023-04-24 | CT_ITS ---
EXAMINATION: CT abdomen pelvis wo con DATE: 04/24/2023 13:48 INDICATION: Left upper quadrant pain TECHNIQUE: Computed tomography (CT) of the abdomen and pelvis was performed without intravenous contr ast. The dose-length product was 1762.97 mGy-cm. Automated exposure control and iterative reconstruction technique were employed. COMPARISON: None. FINDINGS: Lung bases are unremarkable. No significant pleural or pericardial effusion. There is abnor mal soft tissue in the left anterior abdominal wall consistent with rectus sheath hematoma with exten twyla into the subcutaneous tissues. The liver, spleen, pancreas, adrenal glands and kidneys are unremarkable for noncontrast CT. Gallblad cornelius is present. Nonobstructive bowel gas pattern. Small bilateral fat-containing inguinal hernias. Th ere are mild superior endplate compression fractures of T12 and L3 with Schmorl's nodes, likely chron ic. IMPRESSION: 1. Left rectus sheath hematoma with extension into the overlying subcutaneous tissues. Reviewed, dictated and finalized at location B. N[facility] SPECIALIST IMPRESSION: 1. Left rectus sheath hematoma with extension into the overlying subcutaneous t issues.
[2023-04-24 11:57] LABS: Appearance Urine Clear (Clear); Bilirubin Urine 1+ (Negative); Blood Urine Negative (Negative); Color Urine Yellow (Yellow); Glucose Urine UA Trace (Negative); Ketones Urine Negative (Negative); Leukocyte Esterase Ur Negative (Negative); Nitrate Urine Negative (Negative); Protein Urine 1+ (Negative); Urobilinogen Urine >=8.0 mg/dL (0.2-1.0)
[2023-04-24 12:11] LABS: Add Urine Microscopic? YES; Bacteria Urine Trace /hpf; Mucus Urine Moderate /lpf; RBC Urine None seen /hpf (0-2); WBC Urine None seen /hpf (0-3)
== END 2023-04-24 11:41 | disposition home or self-care (01) ==
LOC: CHSLAB 11:42
PROVIDERS: PCP Family Medicine; Visit Provider Nurse Practitioner Family
DX: R10.9 Unspecified abdominal pain (principal); S30.1XXA Contusion of abdominal wall, initial encounter
CPT/HCPCS: 74176; 81001

== ENCOUNTER 2025-01-25 10:03 | Outpatient (CLI) | payer OTHER, SELFPAY ==
[2025-01-25 10:21] LABS: Hematocrit 46.1 % (40.0-54.0); Hemoglobin 15.5 g/dL (14.0-18.0); Immature Granulocyte Percent A 0.2 % (0.0-0.0); Immature Platelet Fraction Pct 3.9 % (1.0-7.0); Lymphocytes Absolute Auto 0.89 K/mm3 (1.10-4.50); Mean Corpuscular HGB Conc 33.6 g/dL (32-36); Mean Corpuscular Hemoglobin 31.8 pg (27.0-31.0); Mean Corpuscular Volume 94.5 fL (78.0-102.0); Nucleated Red Blood Cells Absolute Auto 0.00 K/mm3 (0.00-0.00); Nucleated Red Blood Cells Perc 0.0 % (0-0.0); Platelet Count Result 88 K/mm3 (150-420); Red Blood Count 4.88 M/mm3 (4.70-6.10); White Blood Count 4.8 K/mm3 (4.8-10.8)
[2025-01-25 10:42] LABS: Alanine Aminotransferase 205 U/L (6-50); Albumin Level 2.9 g/dL (3.5-5.1); Alkaline Phosphatase 772 U/L (38-126); Anion Gap 8 mmol/L (4-12); Aspartate Amino Transferase 535 U/L (17-59); Bilirubin,Total 4.8 mg/dL (0.2-1.3); Blood Urea Nitrogen 12 mg/dL (9-20); CRP 4.0 mg/dL (<1.0); Calcium 8.2 mg/dL (8.4-10.2); Carbon Dioxide 29 mmol/L (22-30); Chloride 104 mmol/L (98-107); Cholesterol 162 mg/dL (0-200); Estimated Glomerular Filt Rate > 60; Glucose 102 mg/dL (65-110); HDL Direct 18 mg/dL; Osmolality Calculated 291 mOsm/kg (285-295); Potassium 4.4 mmol/L (3.4-5.0); Sodium 141 mmol/L (137-145); Total Protein 6.2 g/dL (6.3-8.2); Triglycerides 355 mg/dL (<150)
[2025-01-25 10:49] LABS: NT Pro B Type Natriuretic Pept 106 pg/mL (19.9-100)
== END 2025-01-25 10:04 | disposition home or self-care (01) ==
PROVIDERS: PCP Nurse Practitioner Family; Visit Provider Nurse Practitioner Family
DX: M79.89 Other specified soft tissue disorders (principal); L03.115 Cellulitis of right lower limb; Z13.6 Encounter for screening for cardiovascular disorders; M79.672 Pain in left foot; Z79.899 Other long term (current) drug therapy; I11.0 Hypertensive heart disease with heart failure; I50.9 Heart failure, unspecified
CPT/HCPCS: 36415; 80053; 80061; 82306; 83880; 85025; 85055; 86140; 87070; 87075; 87186

== ENCOUNTER 2025-01-25 11:19 | Emergency (ER) | payer OTHER, SELFPAY ==
[2025-01-25] VITALS (20 sets, daily range): BP systolic 99–133; BP diastolic 61–98; PULSE 70–80; RESP 20; TEMP 36.6–36.7; O2SAT 98–100
--- NOTE | ~2025-01-25 | CT_ITS ---
EXAMINATION: CT abdomen pelvis w con DATE: 01/25/2025 12:45 INDICATION: Elevated liver function tests TECHNIQUE: Computed tomography (CT) of the abdomen and pelvis was performed with 100 mL Omnipaque-350 intravenous contrast. Automated exposure control and iterative reconstruction technique were employed. The dose-length product was 1660.55 mGy-cm. COMPARISON: CT abdomen and pelvis dated 04/24/2023 FINDINGS: There is scattered linear discoid atelectasis/scarring in the right middle and lower lobes and lingula. Heart size is normal. No pericardial or pleural effusion. Prominent diffuse hepatic steatosis. There is haziness in the fat surrounding the normal-appearing nondilated gallbladder which measures 3.5 cm maximal diameter but which raises some concern for acute cholecystitis. Spleen, pancreas, bilateral adrenal glands and kidneys are normal. Bowels including the appendix are normal. There is a 10 x 10 x 1.5 cm loculated low-attenuation fluid collection within the left upper quadrant anterior abdominal wall musculature at the site of a previously seen hematoma consistent with residual seroma. Bladder is normal. Very small amount of ascites in the deep pelvis. No abscess or free intraperitoneal gas. There are moderate-sized bilateral fat-containing inguinal hernias. Partially visualized right total hip arthroplasty. Mild thoracic and lumbar spondylosis with unchanged prominent Schmorl's nodes along the superior endplates of T12 and L3. IMPRESSION: 1. Haziness to the fat surrounding the normal-appearing gallbladder which is nonetheless raises concern for acute cholecystitis. Correlate for Ochoa sign and could consider further evaluation with either right upper quadrant ultrasound or HIDA scan. 2. Prominent diffuse hepatic steatosis. 3. Very small amount of nonspecific ascites in the deep pelvis. 4. Interval resolution of a now chronic residual 10 x 10 x 1.5 cm left rectus sheath seroma. Reviewed, dictated and finalized at location A. IMPRESSION: 1. Haziness to the fat surrounding the normal-appearing gallbladder which is no netheless raises concern for acute cholecystitis. Correlate for Ochoa sign and could consider further evaluation with either right upper quadrant ultrasound or HIDA scan. 2. Prominent diffuse hepatic steatosis. 3. Very small amount of nonspecific ascites in the deep pelvis. 4. Interval resolution of a now chronic residual 10 x 10 x 1.5 cm left rectus s raymundo seroma.
--- NOTE | 2025-01-25 11:41 | ED.RECABL ---
HPI - Recheck/Abnormal Lab/Rx General Chief Complaint: Recheck/Abnormal Lab/Rx Stated Complaint: abn labs Time Seen by Provider: 01/25/25 11:36 Source: patient and old records reviewed Mode of arrival: ambulatory Limitations: no limitations History of Present Illness HPI narrative: Patient is a 54-year-old male sent in from the primary doctor for elevated liver function testing and cellulitis and wounds of the lower extremities. He was getting lab testing done for the lower extremity wounds and the LFT abnormalities were noted incidentally. No pain. Slight nausea from time to time. Patient has not done blood work since 2022. Wounds have been on the lower extremities now for the past month. Patient has chronic lower extremity edema and some CHF. MD complaint: abnormal lab Onset/Timin Initial visit (ago): day(s) Initial visit for: cellulitis (Bilateral lower extremities with right worse than left) Returns today for: cellulitis follow-up and called because of abnormal lab/test Description of abnormal result: Elevated LFTs without symptoms except some nausea Symptoms since prior visit: no new symptoms (Chronic lower extremity edema, chronic wounds of the lower extremity and probably LFT elevation is chronic too) Context: called for abnormal lab result Associated symptoms: nausea Treatments prior to arrival: other (Given antibiotics today to start today but has not been home to get the medicine as he was sent to the ER from the primary office due to the abnormal labs) Related Data Home Medications ?Medication ?Instructions ?Recorded ?Confirmed ?Last Taken ?Type furosemide 20 mg tablet 20 mg PO DAILY 01/25/25 Unknown History Allergies Allergy/AdvReac Type Severity Reaction Status Date / Time No Known Allergies Allergy Verified 01/25/25 11:36 Review of Systems Review of Systems: All systems reviewed & are unremarkable except as noted in HPI and below Constitutional: Constitutional: Reports no additional constitutional complaints Eyes: Eyes: Reports no additional eye complaints ENT: Reports system reviewed and no additional complaints, except as documented Cardiovascular: Cardiovascular: Reports no additional cardiovascular complaints Respiratory: Respiratory: Reports no additional respiratory complaints Gastrointestinal: Gastrointestinal: Reports no additional gastrointestinal complaints Genitourinary: Genitourinary: Reports no additional male genitourinary complaints Musculoskeletal: Musculoskeletal: Reports no additional musculoskeletal complaints Integumentary/Breasts: Skin/Breast: Reports system reviewed and no additional complaints, except as docu Neurologic: Reports system reviewed and no additional complaints, except as documented Psychiatric: Psychiatric: Reports no additional psychiatric complaints Endocrine: Endocrine: Reports no additional endocrine complaints Hematologic/Lymphatic: Hematologic/Lymphatic: Reports no additional hematologic/lymphatic complaints Allergic/Immunologic: Allergic/Immunologic: Reports no additional allergic/immunologic complaints [facility] Past Medical History Medical History Osteoporosis HLD (hyperlipidemia) Avascular necrosis Obstructive sleep apnea Exposure to COVID-19 virus Right sided sciatica Depression Diffuse arthralgia (04/09/13) Gout, unspecified (02/11/15) Benign hypertension (04/11/11) Intermittent claudication (03/06/13) Surgical History Surgical History Hx of cardiac catheterization 02/2021 Family History Family History Father , 53 Family history of coronary artery disease Acute myocardial infarction Mother , 61 Brain tumor Other Arthritis Cancer Hypertension Social History Social History Smoking status: Former smoker Tobacco type: cigarettes Smoking end date: 05/20/09 Additional smoking assessment comments: smoked 1 ppd x 15 years Alcohol intake: current Substance use: never Substance use type: does not use Lack of Transportation: No Lack of Food: Never True Current Housing: I Have Housing Concerned About Future Housing: No Difficulty Paying Gas/Electric Bills: No Difficulty Paying for Meds: No Currently Unemployed: No Education: High School Diploma/GED Difficulty w/ Childcare or Family Care: No Occupation/Education: occupation Gender identity (if verbalized by the patient): Male Exam Const: General: healthy appearing Nutritional Appearance: well nourished Orientation/consciousness: patient oriented x3 HENMT: Head: normal to inspection Ears: external ears normal Face/Nose/Sinus: Normal external nose present Eyes: Conjunctivae: conjunctivae normal Pupils: Equal, round and reactive pupils present EOM: EOMs intact bilaterally Neck: Neck: normal visual inspection Chest: Chest palpation & inspection: normal inspection of the chest Resp: Effort & Inspection: normal respiratory effort and not labored Auscultation: clear to auscultation bilaterally and no crackles Cardio: Rate: regular rate Rhythm: regular rhythm Heart sounds: no murmurs GI: Inspection: distended GI Palp: Yes Soft to palpation, No Tenderness to palpation present (GI), No Guarding due to palpation present (GI), No Rigid due to palpation, No Hernia present, Yes Palpable mass present (Right upper quadrant below the ribs) and No Rebound tenderness present Auscultation: normal bowel sounds : General: Yes bladder normal to palpation Back/Spine/Pelvis: Back: no CVA tenderness Skin: General skin exam: normal color Rashes: no rashes Wounds: no wounds Other: A hint of scleral icterus and slight jaundice of the skin Neuro: General: patient oriented x3, moves all extremities and no meningeal signs Extrem: General: normal to inspection Psych: Mental Status: mental status grossly normal Affect: normal affect Attitude: cooperative Course Vital Signs Vital signs: Vital Signs Temperature 36.6 C 01/25/25 11:28 Pulse Rate 77 01/25/25 11:28 Respiratory Rate 20 01/25/25 11:28 Blood Pressure 114/69 01/25/25 11:28 Pulse Oximetry 99 01/25/25 11:28 Oxygen Delivery Room Air 01/25/25 11:28 Temperature 36.6 C 01/25/25 11:28 Pulse Rate 70 01/25/25 14:34 Respiratory Rate 20 01/25/25 14:34 Blood Pressure 114/75 01/25/25 14:34 Pulse Oximetry 100 01/25/25 14:34 Oxygen Delivery Room Air 01/25/25 14:34 MDM - Recheck/Abnormal Lab/Rx MDM Narrative Medical decision making narrative: Patient is a 54-year-old male with bilateral lower extremity wounds with cellulitis and elevated LFTs requiring further workup. Recheck labs. CT abdomen and pelvis with IV contrast. Currently there is outpatient orders for cellulitis with antibiotics but he may turn into inpatient and will need treatment for cellulitis and wound care. Lab Data Attestation: I reviewed the patient's lab results. 01/25/25 11:59 01/25/25 11:59 Labs: Lab Results 01/25/25 01/25/25 Range/Units 11:59 13:16 WBC 4.2 L (4.8-10.8) K/mm3 RBC 4.69 L (4.70-6.10) M/mm3 Hgb 15.1 (14.0-18.0) g/dL Hct 44.3 (40.0-54.0) % MCV 94.5 (78.0-102.0) fL MCH 32.2 H (27.0-31.0) pg MCHC 34.1 (32-36) g/dL RDW 15.9 H (11.6-14.4) % Plt Count 80 L (150-420) K/mm3 MPV 11.4 H (8.7-11.0) fl Immature Gran % (Auto) 0.2 H (0.0-0.0) % Neut % (Auto) 66.4 (50.0-70.0) % Lymph % (Auto) 18.5 (18.0-42.0) % [place] % (Auto) 12.7 H (2.0-11.0) % Eos % (Auto) 1.7 (1.0-6.0) % Baso % (Auto) 0.5 (0.0-1.0) % Lymph # (Auto) 0.77 L (1.10-4.50) K/mm3 [place] # (Auto) 0.53 (0.10-0.90) K/mm3 Eos # (Auto) 0.07 (0.02-0.50) K/mm3 Baso # (Auto) 0.02 (0.00-0.10) K/mm3 Abs Immat Gran (auto) 0.01 H (0.00-0.00) K/mm3 Absolute Neuts (auto) 2.77 (1.70-7.20) K/mm3 Absolute Nucleated RBC 0.00 (0.00-0.00) K/mm3 Nucleated RBC % 0.0 (0-0.0) % % Immature Plt Fraction 3.7 (1.0-7.0) % PT 12.6 H (9.50-12.1) Seconds INR 1.2 APTT 27.9 (23.9-30.70) Sec Sodium 139 (137-145) mmol/L Potassium 4.0 (3.4-5.0) mmol/L Chloride 103 (98-107) mmol/L Carbon Dioxide 31 H (22-30) mmol/L Anion Gap 5 (4-12) mmol/L BUN 12 (9-20) mg/dL Creatinine 1.09 (0.7-1.3) mg/dL Estim Creat Clear Calc 106 ml/min Estimated GFR > 60 (59 - ) Glucose 100 (65-110) mg/dL Calculated Osmolality 287 (285-295) mOsm/kg Lactic Acid 1.6 (0.4-2.0) mmol/L Calcium 8.0 L (8.4-10.2) mg/dL Total Bilirubin 4.9 H (0.2-1.3) mg/dL AST 528 H (17-59) U/L ALT 204 H (6-50) U/L Alkaline Phosphatase 784 H (38-126) U/L C-Reactive Protein 4.1 H (<1.0) mg/dL Total Protein 6.3 (6.3-8.2) g/dL Albumin 3.0 L (3.5-5.1) g/dL Urine Color Dark orange (Yellow) Urine Appearance Clear (Clear) Urine pH 6.5 (5.0-8.0) Ur Specific [place] 1.010 (1.010-1.020) Urine Protein Trace H (Negative) Urine Glucose (UA) Negative (Negative) Urine Ketones Trace H (Negative) Ur Blood (Man) Negative (Negative) Urine Nitrate Negative (Negative) Urine Bilirubin 3+ H (Negative) Urine Urobilinogen 2.0 H (0.2-1.0) mg/dL Leukocyte Esterase Rfl Negative (Negative) MARGE/UL Urine RBC 0-2 (0-2) /hpf Urine WBC 0-3 (0-3) /hpf Ur Squamous Epith Cells Rare (Few) /hpf Urine Bacteria Trace (None) /hpf Imaging Data Attestation: I personally reviewed and interpreted this imaging study as follows: Radiologist's impression: CT scan of the abdomen and pelvis shows IMPRESSION: 1. Haziness to the fat surrounding the normal-appearing gallbladder which is nonetheless raises concern for acute cholecystitis. Correlate for Ochoa sign and could consider further evaluation with either right upper quadrant ultrasound or HIDA scan. 2. Prominent diffuse hepatic steatosis. 3. Very small amount of nonspecific ascites in the deep pelvis. 4. Interval resolution of a now chronic residual 10 x 10 x 1.5 cm left rectus sheath seroma. Discharge Plan Discharge Clinical Impression: Acute cholecystitis, Acquired thrombocytopenia, Transaminitis Patient Disposition: Acute Care Hospital Condition: Stable Patient Language: Amharic Prescriptions: No Action furosemide 20 mg tablet 20 mg PO DAILY mupirocin [Centany] 2 % ointment 1 applic topical BID Qty: 22 1RF amoxicillin-pot clavulanate 875-125 mg tablet 1 tablet PO BID Qty: 20 0RF aspirin 81 mg tablet,delayed release (DR/EC) See Rx Instructions .ROUTE .COMPLEX Qty: 90 3RF Dose Instruction: TAKE 1 TABLET BY MOUTH EVERY DAY Rx Instructions: TAKE 1 TABLET BY MOUTH EVERY DAY atorvastatin 40 mg tablet See Rx Instructions .ROUTE .COMPLEX Qty: 30 11RF Dose Instruction: TAKE 1 TABLET BY MOUTH EVERY DAY Rx Instructions: TAKE 1 TABLET BY MOUTH EVERY DAY metoprolol succinate 25 mg tablet extended release 24 hr See Rx Instructions .ROUTE .COMPLEX Qty: 15 5RF Dose Instruction: TAKE 1/2 (12.5MG) TABLET BY MOUTH DAILY Rx Instructions: TAKE 1/2 (12.5MG) TABLET BY MOUTH DAILY venlafaxine 75 mg capsule,extended release 24hr See Rx Instructions .ROUTE .COMPLEX Qty: 30 3RF Dose Instruction: TAKE 1 CAPSULE BY MOUTH DAILY Rx Instructions: TAKE 1 CAPSULE BY MOUTH DAILY allopurinol 100 mg tablet See Rx Instructions .ROUTE .COMPLEX Qty: 120 3RF Dose Instruction: TAKE 4 TABLETS BY MOUTH EVERY DAY Rx Instructions: TAKE 4 TABLETS BY MOUTH EVERY DAY bupropion HCl 300 mg tablet extended release 24 hr See Rx Instructions .ROUTE .COMPLEX Qty: 30 3RF Dose Instruction: TAKE 1 TABLET BY MOUTH EVERY DAY IN THE MORNING Rx Instructions: TAKE 1 TABLET BY MOUTH EVERY DAY IN THE MORNING celecoxib 200 mg capsule See Rx Instructions .ROUTE .COMPLEX Qty: 60 1RF Dose Instruction: TAKE 1 CAPSULE BY MOUTH EVERY DAY Rx Instructions: TAKE 1 CAPSULE BY MOUTH EVERY DAY Follow-up/Referrals: Angelo Morgan DO [Primary Care Provider, [facility]] Time of Disposition: 15:06
--- OUTSIDE RECORDS SUMMARY | 2025-01-25 11:44 | XMS_ITS | Clinical Summary ---
Author Organization [facility] Address [address] [place] [id number] Care Team Providers Care Analog Ic Design Architect Name Role Phone Angelo Morganh Primary Care Provider Allergies No known active allergies Medications atorvastatin (LIPITOR) 40 mg tablet Take 1 tablet (40 mg total) by mouth daily 1 Active venlafaxine XR (EFFEXOR-XR) 75 mg 24 hr capsule TAKE 37.5MG FOR 1 WEEK THEN START 75MG DAILY 1 Active furosemide (LASIX) 20 mg tabletIndicatio ns:Bilateral lower extremity edema TAKE 1 TABLET BY MOUTH EVERY DAY 30 tablet 11 2 Active buPROPion XL (WELLBUTRIN XL) 300 mg 24 hr tablet Take 1 tablet (300 mg total) by mouth every morning 3 Active celecoxib (CeleBREX) 200 mg capsule Take 1 capsule (200 mg total) by mouth 2 (two) times a day 3 Active cyclobenzaprine (FLEXERIL) 10 mg tablet 3 Active nicotine polacrilex (NICORETTE) 4 mg gum Chew 1 each (4 mg total) as needed for smoking cessation Active allopurinoL (ZYLOPRIM) 100 mg tablet Take 1 tablet (100 mg total) by mouth 4 (four) times a day 3 Active doxepin 6 mg tablet Take 1 tablet by mouth daily as needed 3 Active benzonatate (TESSALON) 100 mg capsule TAKE 1-2 TABLETS BY MOUTH UP TO THREE TIMES DAILY FOR COUGH FOR 5 DAYS 3 Active aspirin 81 mg enteric coated tablet 4 Active Active Problems Problem Noted Date Diagnosed Date Morbid obesity 03/19/2023 Assessment & Plan (03/19/2023 9:05 AM CDT): Given their past success the patient would be a good candidate for weight loss surgery. We have gone over options such as the bypass and sleeve gastrectomy. We have also discussed risks and benefits such as blood clots, staple line leak as well as new or worsening reflux symptoms. They are in understanding. During this time will have them seen by the dietitian and psych. As we get closer to the time of surgery we will set him up for an EGD to look for hiatal hernia, H pylori or other gastric pathology. We will see them back in 4 weeks. They are in understanding of the plan. We have gone over small frequent meals shooting for a goal calorie intake of around 1600 spread throughout 4-5 meals. We have discussed not eating late at night. We have discussed cardiovascular exercise. Greater than 15 minutes was spent in counseling the patient on diet and exercise with regards to her morbid obesity. Bilateral lower extremity edema 04/10/2021 DAWSON (obstructive sleep apnea) 03/17/2021 Abnormal stress test 02/17/2021 Syncope and collapse 02/17/2021 Other chest pain 02/17/2021 Essential hypertension 02/17/2021 Mixed hyperlipidemia 02/17/2021 Surgical History Surgery Date Site/Laterality Comments CARDIAC CATHETERIZATION Medical History Medical History Date Comments Hypertension Syncope Anxiety Arthritis Gout Sleep apnea Family History Medical History Relation Name Comments Heart attack Father Heart disease Father Heart disease Maternal Grandmother Cancer Mother Heart disease Paternal Grandmother Relation Name Status Comments Father Maternal Grandmother Mother Paternal Grandmother Social History Tobacco Use Types Packs/Day Years Used Date Smoking Tobacco: Former Cigarettes Q uit: 02/17/2010 Smokeless Tobacco: Never AUDIT-C Answer Date Recorded Q1: How often do you have a drink containing alc ohol? Monthly or less 07/25/2023 Q2: How many drinks containi ng alcohol do you have on a typical day when you are drinking? 1 or 2 07/25/2023 Q3: How often do you have si x or more drinks on one occasion? Less than monthly 07/25/2023 Personal Safety Answer Date Recorded Getting School Help Needed Not on file 05/05 Sex and Gender Information Value Date Recorded Sex Assigned at Not on file Legal Sex Male 11:19 AM CDT Gender Identity Not on file Sexual Orientation Not on file Obstetrics History Last Filed Vital Signs Vital Sign Reading Time Taken Comments Blood Pressure 185/104 07/25/2023 3:56 PM CHILD CARE GIVER Pulse 111 07/25/2023 3:56 PM CHILD CARE GIVER Temperature 36.1 C (97 F) 07/25/2023 3:56 PM CHILD CARE GIVER Respiratory Rate 18 07/25/2023 3:56 PM CHILD CARE GIVER Oxygen Saturation 96% 07/25/2023 3:56 PM CHILD CARE GIVER Inhaled Oxygen Concentration - - Weight 157.1 kg (346 lb 4.8 oz) 07/25/2023 3:56 PM CHILD CARE GIVER Height 180.3 cm (5' 11) 07/25/2023 3:56 PM CHILD CARE GIVER Body Mass Index 48.3 07/25/2023 3:56 PM CHILD CARE GIVER Plan of Treatment Health Maintenance Due Date Last Done Comments Colon Cancer Screening-Colonoscopy 1969 Depression Screening 1969 Hepatitis C Screening 1969 Prostate Cancer Screening-PSA 1969 DTaP/Tdap/Td Vaccine (1 - Tdap) 1980 Hepatitis B Screening 1987 Regular Well Visit/Exam 18-64 1987 Zoster Vaccine (1 of 2) 2019 Influenza Vaccine (#1) 2025 Pneumococcal vaccine <65 Aged Out No longer eligible based on patient's age to complete this topic Insurance [employer] OPEN ACCESS [facility] CHOICE PLUS Care Teams Analog Ic Design Architect Relationship Specialty Start Date End Date Angelo Morgan DO [address] [place] [address] PCP - General Family Medicine 02/13/21
[2025-01-25 12:25] LABS: Hematocrit 44.3 % (40.0-54.0); Hemoglobin 15.1 g/dL (14.0-18.0); Immature Granulocyte Percent A 0.2 % (0.0-0.0); Immature Platelet Fraction Pct 3.7 % (1.0-7.0); Lymphocytes Absolute Auto 0.77 K/mm3 (1.10-4.50); Mean Corpuscular HGB Conc 34.1 g/dL (32-36); Mean Corpuscular Hemoglobin 32.2 pg (27.0-31.0); Mean Corpuscular Volume 94.5 fL (78.0-102.0); Nucleated Red Blood Cells Absolute Auto 0.00 K/mm3 (0.00-0.00); Nucleated Red Blood Cells Perc 0.0 % (0-0.0); Platelet Count Result 80 K/mm3 (150-420); Red Blood Count 4.69 M/mm3 (4.70-6.10); White Blood Count 4.2 K/mm3 (4.8-10.8)
[2025-01-25 12:34] LABS: Alanine Aminotransferase 204 U/L (6-50); Albumin Level 3.0 g/dL (3.5-5.1); Alkaline Phosphatase 784 U/L (38-126); Anion Gap 5 mmol/L (4-12); Aspartate Amino Transferase 528 U/L (17-59); Bilirubin,Total 4.9 mg/dL (0.2-1.3); Blood Urea Nitrogen 12 mg/dL (9-20); Calcium 8.0 mg/dL (8.4-10.2); Carbon Dioxide 31 mmol/L (22-30); Chloride 103 mmol/L (98-107); Estimated CRCL calculation 106 ml/min; Estimated Glomerular Filt Rate > 60; Glucose 100 mg/dL (65-110); Osmolality Calculated 287 mOsm/kg (285-295); Potassium 4.0 mmol/L (3.4-5.0); Sodium 139 mmol/L (137-145); Total Protein 6.3 g/dL (6.3-8.2)
[2025-01-25 12:37] LABS: CRP 4.1 mg/dL (<1.0); INR 1.2; Partial Thromboplastin Time 27.9 Sec (23.9-30.70); Prothrombin Time 12.6 Seconds (9.50-12.1)
[2025-01-25 13:20] LABS: Appearance Urine Clear (Clear); Glucose Urine UA Negative (Negative); Leukocyte Esterase Ur Negative LEU/UL (Negative); Nitrate Urine Negative (Negative); Specific Grav Ur 1.010 (1.010-1.020)
[2025-01-25 13:25] LABS: Add Urine Microscopic? YES
[2025-01-25] MEDS: PIPERACILLIN/TAZOBACTAM SOD 3.375 GM in SODIUM CHLORIDE 0.9% IV 50 ML 100 ML IVPB (14:28)
--- NOTE | 2025-01-27 17:15 | PC.NURSE ---
preliminary blood cultures x2 reviewed. no growth at this time
--- NOTE | 2025-01-28 13:44 | PC.NURSE ---
preliminary blood cultures x2 reviewed. no growth in 24 hours
--- NOTE | 2025-01-28 13:46 | PC.NURSE ---
preliminary blood cultures x2 reviewed. no growth in 24 hours
--- NOTE | 2025-01-29 13:49 | PC.NURSE ---
PRELIMINARY BLOOD CULTURES NO GROWTH IN 48 HOURS
--- NOTE | 2025-02-01 12:31 | PC.NURSE ---
BLOOD CULTURE FINAL RESULT: NO GROWTH, NO CHANGE IN PLAN OF CARE.
== END 2025-01-25 16:25 | disposition short-term general hospital (02) ==
PROVIDERS: Emergency Provider Emergency Medicine; PCP Family Medicine
DX: K81.0 Acute cholecystitis (principal); D69.6 Thrombocytopenia, unspecified; R74.01 Elevation of levels of liver transaminase levels; E78.5 Hyperlipidemia, unspecified; I10 Essential (primary) hypertension; Z87.891 Personal history of nicotine dependence
CPT/HCPCS: 36415; 74177; 80053; 81001; 83605; 85025; 85055; 85610; 85730; 86140; 87040; 96365; 99285; J2543; Q9967

== ENCOUNTER 2025-01-25 16:54 | Observation (INO) | payer OTHER, SELFPAY ==
--- NOTE | ~2025-01-25 | US_ITS ---
US right upper quadrant EXAMINATION: US Abdomen right upper quadrant INDICATION: Hazy gallbladder. Transaminitis PROCEDURE: Realtime High Resolution abdomen ultrasound. COMPARISON: CT abdomen and pelvis 01/25/2025 FINDINGS: Borderline gallbladder wall thickening. Common bile duct measures 4 mm. No sonographic Ochoa's sign by the technologist. Liver echotexture is hyperechoic likely due to fatty infiltration or hepatocellular disease. Pancreas is not adequately visualized for evaluation The study is limited due to the patient's imaging characteristics. IMPRESSION: 1: Borderline gallbladder wall thickening. If concern for acute cholecystitis, consider a HIDA scan. 2. Liver is hyperechoic likely due to fatty infiltration and/or hepatocellular disease. 3. Limited study as above. Reviewed, dictated and finalized at location Q.
--- NOTE | ~2025-01-25 | XR_ITS ---
EXAMINATION: HAND-BRANNON ARTHRITIS 3+VIEWS DATE: 01/26/2025 08:30 INDICATION: Rule out hemochromatosis. Like arthritis TECHNIQUE: 7 images of the hands were obtained. COMPARISON: None. FINDINGS: Left hand: Bone mineralization is within normal limits. Mild soft tissue swelling about the left hand. No fracture. No dislocation. Mild joint space narrowing in the first carpometacarpal joint, first, second and third MCP joints, interphalangeal joint of the thumb and PIP and DIP joints of the second through fifth digits. Right hand: Bone mineralization is within normal limits. Mild soft tissue swelling about the left hand. No fracture. No dislocation. Mild joint space narrowing in the first carpometacarpal joint, first and second MCP joints, interphalangeal joint of the thumb and PIP and DIP joints of the second through fifth digits. IMPRESSION: 1. Joint space narrowing in both hands as detailed above. Reviewed, dictated and finalized at location Q.
--- NOTE | ~2025-01-25 | US_ITS ---
EXAMINATION: US retroperitoneal duplex ltd DATE: 01/26/2025 09:54 INDICATION: Assess for portal venous hypertension TECHNIQUE: Multiple grayscale, color Doppler, and pulsed Doppler images of the hepatic artery and portal and hepatic veins were obtained. COMPARISON: CT dated 01/25/25 FINDINGS: There is prominent increased parenchymal echogenicity and coarsened echotexture consistent with diffuse hepatic steatosis. Portal venous flow was seen in the hepatopetal, normal direction and with normal Doppler waveform at the main, left and right portal veins. Normal directional flow identified in the hepatic artery with normal brisk systolic upstroke. The right and left hepatic veins were unable to be visualized but are patent and contrast opacified on the CT from one day prior. Normal directional flow and hepatic venous waveforms identified in the middle hepatic vein. IMPRESSION: 1. Normal directional flow and Doppler waveforms in the hepatic artery, the main, left and right portal veins and the middle hepatic vein. No evidence of portal venous hypertension. The left and right hepatic veins were unable to be visualized but are patent and contrast opacified on CT from one day prior. Reviewed, dictated and finalized at location A. IMPRESSION: 1. Normal directional flow and Doppler waveforms in the hepatic artery, the ma in, left and right portal veins and the middle hepatic vein. No evidence of por raul venous hypertension. The left and right hepatic veins were unable to be vis ualized but are patent and contrast opacified on CT from one day prior.
--- OUTSIDE RECORDS SUMMARY | 2025-01-25 16:57 | XMS_ITS | Clinical Summary ---
Author Organization [facility] Address [address] [place] [id number] Care Team Providers Care Instructor Weaving Name Role Phone Angelo Morganh Primary Care [...] Comments Blood Pressure 185/104 07/25/2023 3:56 PM SKIN PEELING MACHINE OPERATOR Pulse 111 07/25/2023 3:56 PM SKIN PEELING MACHINE OPERATOR Temperature 36.1 C (97 F) 07/25/2023 3:56 PM SKIN PEELING MACHINE OPERATOR Respiratory Rate 18 07/25/2023 3:56 PM SKIN PEELING MACHINE OPERATOR Oxygen Saturation 96% 07/25/2023 3:56 PM SKIN PEELING MACHINE OPERATOR Inhaled Oxygen Concentration - - Weight 157.1 kg (346 lb 4.8 oz) 07/25/2023 3:56 PM SKIN PEELING MACHINE OPERATOR Height 180.3 cm (5' 11) 07/25/2023 3:56 PM SKIN PEELING MACHINE OPERATOR Body Mass Index 48.3 07/25/2023 3:56 PM SKIN PEELING MACHINE OPERATOR Plan of Treatment Health Maintenance Due Date [...] patient's age to complete this topic Insurance [employer] OPEN ACCESS [facility] CHOICE PLUS Care Teams Instructor Weaving Relationship Specialty Start Date End Date Angelo Morgan DO [address] [place] [address] PCP - General Family Medicine 02/13/21
--- OUTSIDE RECORDS SUMMARY | 2025-01-25 16:57 | XMS_ITS | Clinical Summary ---
Author Organization [facility] Address [address] [place] [address] Care Team Providers Care Trade Union Secretary Name Role Phone Angelo Morgan DO Primary Care Provider [phone] Allergies No known active allergies Medications allopurinol (ZYLOPRIM) 100 MG tabletIndication s:gout Take 1 tablet (100 mg total) by mouth 4 (four) times daily. Indications: gout 3 Active atorvastatin (LIPITOR) 40 MG tabletIndication s:cholesterol Take 1 tablet (40 mg total) by mouth daily. Indications: cholesterol 4 Active buPROPion XL (WELLBUTRIN XL) 300 MG 24 hr tabletIndication s:mood Take 1 tablet (300 mg total) by mouth daily. Indications: mood 3 Active Doxepin HCl 6 MG TabIndications:s leep Take 1 tablet by mouth nightly as needed (sleep). Indications: sleep 3 Active furosemide (LASIX) 20 MG tabletIndication s:blood pressure Take 1 tablet (20 mg total) by mouth daily. Indications: blood pressure 3 Active naloxone (NARCAN) 4 MG/0.1ML nasal sprayIndications :opioid reversal 1 spray by Nasal route as needed. Indications: opioid reversal 4 Active venlafaxine XR (EFFEXOR-XR) 75 MG 24 hr capsuleIndicatio ns:mood Take 1 capsule (75 mg total) by mouth daily. Indications: mood 4 Active metoprolol succinate ER (TOPROL-XL) 25 MG 24 hr tabletIndication s:prn for elevated bp (no parameter given) Take 0.5 tablets (12.5 mg total) by mouth daily. Indications: prn for elevated bp (no parameter given) Active NON FORMULARYIndicat ions:Pain pump for Rt hip pain. Morphine in pump. Per Dr Volodymyr Hogue MD [phone] Indications: Pain pump for Rt hip pain. Morphine in pump. Per Dr Volodymyr Hogue MD [phone] Implanted 07/26/23. Pump is filled monthly. Active apixaban (ELIQUIS) 2.5 MG tabletIndication s:Prophylaxis of Deep Vein Thrombosis in Orthopedic Surgery Take 1 tablet (2.5 mg total) by mouth 2 (two) times daily. Indications: Prophylaxis of Deep Vein Thrombosis in Orthopedic Surgery 60 tablet 4 Active nicotine polacrilex (NICORETTE) 4 MG Gum gumIndications:s moking cessation Take 1 each (4 mg total) by mouth as needed for Smoking cessation. Indications: smoking cessation one piece of gum. Active sodium chloride 0.9 % SOLN with bupivacaine (PF) 0.75 % SOLN 0.125 %Indications:yesenia n Infuse 4 mL/hr into catheter continuous. Indications: pain 4 Active HYDROcodone-acet aminophen (NORCO) 5-325 MG tabletIndication s:Acute Pain < 3 Day Supply,Acute Pain < 7 Day Supply Take 1 tablet by mouth every 4 (four) hours as needed. Indications: Acute Pain < 3 Day Supply, Acute Pain < 7 Day Supply 42 tablet 4 Active Additional Information Patient not taking.Reported on 03/09/2024 Active Problems Problem Noted Date Diagnosed Date Friction blisters of the skin 12/10/2023 History of total hip replacement, right 09/30/19 24 Assessment & Plan (10/28/2023 10:31 AM CDT): Recommendation at this time: went over the risks, benefits as well as the alternatives. We'll continue with his physical therapy. He's going to continue to work on weight loss. If he wants me to work up his knee or back further, we can certainly try that. Otherwise, we'll keep him off work for the next six weeks. Patient will be seen back in six weeks, hopefully will be able to get him back to work at that time. He'll give us a call sooner if he thinks he can go back sooner. Assessment & Plan (09/30/2023 1:22 PM CDT): Recommendation at this time is to continue with a progressive range of motion and strengthening. Maintain his hip precautions. We will see him back in four weeks with an x-ray. Primary osteoarthritis of both knees 07/29/2023 Assessment & Plan (03/09/2024 4:51 PM CDT): We discussed the risks, benefits, and alternatives. The only thing proven to slow the progression of osteoarthritis is weight loss. Every pound lost relieves 4 to 6 pounds of stress across the knee. We discussed unloading braces. Formal physical therapy to help with flexibility, mobility, and strength. We discussed TENS units. Nonsteroidal anti-inflammatories as well as Tylenol and pain medication and their side effects. We discussed steroid versus Visco supplement injection. We discussed eventual total knee arthroplasty. Recommendation at this time is to continue with a progressive range of motion and strengthening for the hip. Maintain hip precautions. For his knees, he'd like to avoid steroids. 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 We'll get him pre-approved for viscosupplementation. We'll see him back after that. Assessment & Plan (07/29/2023 10:04 AM CDT): Recommendation at this time: we discussed the risks benefits as well as the alternatives. Since his BMI is 47, he is markedly increased risk for blood clots, DVT, infection, delayed wound healing, early loosening, dislocation. The patient understands the risks associated. At this time, he states he is pretty much limited on most of his normal activities and would like to proceed with surgcal intervention. It is interfering with his activities of daily living. He has been on narcotics, non-steroidal anti-inflammatories, Tylenol therapy with no relief, as well as through pain management. We went over the risks of benefits as well as the alternatives. All patients questions were answers. We will schedule him for total hip arthroplasty on the right for August 26. Class 3 severe obesity due t o excess calories with body mass index (BMI) of 50.0 to 59.9 in adult 07/29/2023 Assessment & Plan (03/09/2024 4:55 PM CDT): We discussed the adverse effects of weight on osteoarthritis. For every 1 pound loss, 4 to 6 pounds of stress is relieved from the knee, slightly more at the ankle and slightly less at the hip. We discussed low carbohydrate diet to help with weight loss. 80% of weight loss is through diet. 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 We will get him set up for x-rays both of his knees. I'm concerned because he had avascular necrosis of his right hip. There's also a concern for avascular necrosis to the distal femur, proximal tibia. Continue with progressive range of motion and strengthening per total hip arthroplasty protocol. Maintain hip precautions. We'll see him back in three months. Chronic bilateral low back pain without sciatica 07/29/2023 Family History Medical History Relation Comments Heart Disease Father Cancer Mother Relation Status Comments Father Mother Social History Tobacco Use Types Packs/Day Years Used Date Smoking Tobacco: Former Cigarettes Q uit: 2008 Smokeless Tobacco: Never Tobacco Cessation:Counseling Given: No Alcohol Use Standard Drinks/Week Comments Yes 41.7 (1 standard drink = 0.6 oz pure alcohol) 4 beers daily Sex and Gender Information Value Date Recorded Sex Assigned at Not on file Legal Sex Male 5:50 PM STRATEGIC PLANNING MANAGER Gender Identity Not on file Sexual Orientation Not on file Last Filed Vital Signs Vital Sign Reading Time Taken Comments Blood Pressure 129/82 03/09/2024 4:14 PM CDT Pulse 72 03/09/2024 4:14 PM CDT Temperature 36 C (96.8 F) 03/09/2024 4:14 PM CDT Respiratory Rate 18 09/27/2023 10:5 0 AM CDT Oxygen Saturation 95% 03/09/2024 4:14 PM CDT Inhaled Oxygen Concentration - - Weight 162.7 kg (358 lb 9.6 oz) 03/09/2024 4:14 PM CDT Height 180.3 cm (5' 11) 03/09/2024 4:14 PM CDT Body Mass Index 50.01 03/09/2024 4:14 PM CDT Plan of Treatment Health Maintenance Due Date Last Done Comments Colorectal Cancer Screening Colonoscopy (10 Years) 1969 Annual Physical 1972 Hepatitis C 1987 DTaP, Tdap and Td Vaccines ( 1 - Tdap) 1988 Hepatitis B Vaccines (1 of 3 - 19+ 3-dose series) 1988 Pneumococcal Vaccine: 50+ Ye ars (1 of 1 - PCV) 2019 Zoster Vaccines (1 of 2) 2019 PHQ-2 (Physician [place]) 05/20/2024 COVID-19 Vaccine (2023-2 5 season) 2025 Meningococcal B Vaccine Aged Out No l onger eligible based on patient's age to complete this topic Meningococcal Vaccine Aged Out No lucina damon eligible based on patient's age to complete this topic RSV Immunizations Under 20 Months Aged Out No longer eligible based on patient's age to complete this topic Medical Devices Implanted Type Area Bar Gauger And Lubricator Tender Device Identifier Shelf Expiration Date Model / Serial / Lot Delivery System On-Q Pain Pump 5 - [id number] Implanted:Qty : 1 on 09/17/2023 by Milton Treviño DO at [facility] Catheter Implant [employer] INC 08/21/2025 [id number] / / [id number] Liner Depuy Acetabular Altrx Neut 36x58 - [id number] Implanted:Qty : 1 on 09/17/2023 by Milton Treviño DO at [facility] Hip Components Right: Hip DEPUY [id number] 03/19/2028 [id number] / / [id number] [place] Gripton Acetabular Shell Sector Implanted:Qty : 1 on 09/17/2023 by Milton Treviño DO at [facility] Right: Hip [employer] 03/19/2033 [id number] / / [id number] [place] Cancellous Bone Screw 6.5 Mm X 25 Mm Implanted:Qty : 1 on 09/17/2023 by Milton Treviño DO at [facility] Right: Hip [employer] 11/16/2032 [id number] / / [id number] Femoral Stem 05/02 Taper Actis Duofix Hip Prosthesis Cementless Size 11 High Collar Implanted:Qty : 1 on 09/17/2023 by Milton Treviño DO at [facility] Right: Hip [id number] 03/19/2032 [id number] / / [id number] [employer] Ceramic Femoral Head Implanted:Qty : 1 on 09/17/2023 by Milton Treviño DO at [facility] Right: Hip [employer] 03/19/2028 [id number] / / [id number] Explanted Type Area Bar Gauger And Lubricator Tender Device Identifier Shelf Expiration Date Model / Serial / Lot Pump Pain On-Q 400ml - [id number] Explanted:Qty: 1 on 09/17/2023 at [facility] Pump Right: Hip [employer] [id number] / / Insurance [facility] Advance Directives * Full Code (Latest Code Status on File) Date Activated Date Inactivated Comments 09/20/2023 9:01 AM * Full Code Date Activated Date Inactivated Comments 09/19/2023 4:06 PM 09/20/2023 9:01 AM * Full Code Date Activated Date Inactivated Comments 09/17/2023 10:58 AM 09/18/2023 1:36 PM Care Teams Trade Union Secretary Relationship Specialty Start Date End Date Angelo Morgan DO [address] [place] [address] PCP - General FAMILY PRACTICE 02/01/21
--- NOTE | 2025-01-25 17:17 | ADMGEN ---
This patient, Ap Briscoe Jr., was admitted to Medical Room 251-. Patient/family oriented to hospital policies and general routines including ID bracelet, bed and alarms, visiting hours, pain management, procedures, bathroom and other care routines, personal items, smoking policy, room service/diet, and visiting hours. Information on how to activate the Rapid Response Team has been discussed. Patient/Family are encouraged to report perceived risks to care and to ask questions if they do not understand what they are told or what they should do.
[2025-01-25 17:18] VITALS: BMI 49.5
[2025-01-25 18:06] VITALS: BP 122/78; PULSE 70; RESP 18; TEMP 36.7; O2SAT 100
--- NOTE | 2025-01-25 18:07 | PM.IMHP ---
H&P: HPI History of Present Illness Date/Time: 01/25/25 18:07 Chief Complaint: Abnormal Labs Narrative: 54 y/o M with PMH of hyperlipidemia, osteoporosis, DAWSON, depression, gout, hypertension presents here from his PCP office for further evaluation of abnormal lab work. The patient presents here from home on 01/25 for further evaluation of abnormal lab work. Patient saw his PCP today for further evaluation of ongoing bilateral lower extremity swelling and script refills. He reported at this visit that it had started a few months ago and has since developed weeping and open sores (particularly to his right lower extremity). Patient has previously been told to wear compression stockings, however he has been non compliant as he does not have the appropriate size. Patient also is on a daily diuretic for which he reports compliance, increased at this visit. Additionally he reported daily nausea and intermittent dry heaving that is accompanied by intermittent indigestion/heartburn, that has been ongoing for the past 2-3 weeks. He reports accompanying belly ache. He describes it as an ache, near his umbilicus, and intermittent. Pain is not necessarily precipitated by eating, appears to occur at random. He denies accompanying diarrhea. He has not been on a daily acid reducing medication, was prescribed one today at his PCP visit. Patient endorses daily alcohol use - 4 beers daily. He denies flu-like symptoms or tremors with cessation. He denies any herbal supplement use or recent antibiotic use. Initial VS at presentation to [facility]: 98.1? F, HR 70, R 18, 122/78 ED workup showed: WBC 4.2, no anemia, no significant electrolyte derangements, creatinine 1.09 and GFR >60, total bilirubin 4.9, AST 528, ALT 204, alk-phos 784, CRP 4.1, BNP 106, and UA showed no indicators of infection. CT of the abdomen/pelvis showed haziness of the fat surrounding the normal appearing gallbladder which nonetheless reasons concerns for acute cholecystitis, prominent diffuse hepatic steatosis, a very small amount of nonspecific ascites in the deep pelvis, interval resolution of the now chronic residual 10 x 10 x 1.5 cm left rectus sheath seroma. Review of Systems Review of Systems: All systems reviewed & are unremarkable except as noted in HPI and below PMFSH Past Medical History Medical History GERD (gastroesophageal reflux disease) Osteoporosis HLD (hyperlipidemia) Avascular necrosis Obstructive sleep apnea Exposure to COVID-19 virus Right sided sciatica Depression Diffuse arthralgia (04/09/13) Gout, unspecified (02/11/15) Benign hypertension (04/11/11) Intermittent claudication (03/06/13) Surgical History Surgical History Hx of cardiac catheterization 02/2021 Family History Family History Father , 53 Family history of coronary artery disease Acute myocardial infarction Mother , 61 Brain tumor Other Arthritis Cancer Hypertension Social History Social History Smoking packs per day: 2 Smoking cigarettes per day: 40.0 Years smoked: 15 Smoking pack-years: 30.00 Smoking status: Former smoker Tobacco type: cigarettes Smoking end date: 05/20/11 Additional smoking assessment comments: smoked 1 ppd x 15 years Alcohol intake: current Drinks per week: 24 Substance use: never Substance use type: does not use Lack of Transportation: No Lack of Food: Never True Current Housing: I Have Housing Concerned About Future Housing: No Difficulty Paying Gas/Electric Bills: No Difficulty Paying for Meds: No Currently Unemployed: No Education: High School Diploma/GED Difficulty w/ Childcare or Family Care: No Occupation/Education: occupation Gender identity (if verbalized by the patient): Male Spiritual care concerns: No Meds Home Medications and Allergies Home Medications ?Medication ?Instructions ?Recorded ?Confirmed ?Type aspirin 81 mg tablet,delayed See Rx Instructions .Route 03/07/23 01/25/25 Rx release .COMPLEX #90 tabs atorvastatin 40 mg tablet See Rx Instructions .Route 02/26/24 01/25/25 Rx .COMPLEX #30 tabs metoprolol succinate 25 mg See Rx Instructions .Route 08/25/24 01/25/25 Rx tablet,extended release 24 hr .COMPLEX #15 tabs allopurinol 100 mg tablet See Rx Instructions .Route 10/05/24 01/25/25 Rx .COMPLEX #120 tabs venlafaxine 75 mg capsule,extended See Rx Instructions .Route 10/05/24 01/25/25 Rx release 24 hr .COMPLEX #30 caps bupropion HCl 300 mg 24 hr tablet, See Rx Instructions .Route 11/04/24 01/25/25 Rx extended release .COMPLEX #30 tabs celecoxib 200 mg capsule See Rx Instructions .Route 12/14/24 01/25/25 Rx .COMPLEX #60 caps amoxicillin 875 mg-potassium 1 tablet PO BID #20 tabs 01/25/25 01/25/25 Rx clavulanate 125 mg tablet furosemide 20 mg tablet 20 mg PO DAILY 01/25/25 01/25/25 History mupirocin 2 % topical ointment 1 applic topical BID #22 grams 01/25/25 01/25/25 Rx ([facility]) Allergies Allergy/AdvReac Type Severity Reaction Status Date / Time No Known Allergies Allergy Verified 01/25/25 11:36 Vital Signs Vital Signs - 24 hr 01/25/25 17:45 01/25/25 18:06 Temperature 98.1 F Pulse Rate 70 Respiratory Rate 18 Blood Pressure 122/78 Pulse Oximetry 100 Oxygen Delivery Room Air Exam Const: General: comfortable and no acute distress Other: , male, nontoxic appearance HENMT: Face/Nose/Sinus: Normal nares present Mouth: Yes moist mucous membranes Eyes: General: appearance normal, both eyes and all related structures Sclera: sclerae normal Pupils: Equal, round and reactive pupils present EOM: EOMs intact bilaterally Resp: Effort & Inspection: normal respiratory effort Auscultation: clear to auscultation bilaterally Cardio: Rate: regular rate Rhythm: regular rhythm Other: S1-S2 present without murmur, rub, ectopy GI: Other: Abdomen soft, nondistended, nontender. Normoactive bowel sounds in all quadrants. Skin: Other: clear fluid filled blisters, superficial abrasions, and erythema to BLE. R greater than L. Neuro: Speech: normal speech Motor exam (neuro): 5/5 motor strength present throughout Sensory Exam: normal sensation Other: A&O x4 Extrem: Other: 2+ pitting edema to BLE. Psych: Mental Status: mental status grossly normal Affect: normal affect Other: Good insight and judgment, pleasant Assessment and Plan Assessment and plan (1) Transaminitis: Code(s): R74.01 - Elevation of levels of liver transaminase levels Status: Inactive Assessment and Plan: - total bilirubin 5.5, direct bilirubin 2.3, AST 560, ALT 210, alk-phos 845 - denies herbal supplement use or recent antibiotic use - daily ETOH use, 4 beers daily. no previous hx of w/d. - CT initially concerning for acute cholecystitis, patient reporting daily nausea with intermittent dry heaving and intermittent umbilical pain for the past 2-3 weeks increasing concerns for GB etilogy - spoke with GI who has been consulted, lab work ordered per their recommendations - hold statin - trend LFTs (2) Abdominal pain: Qualifiers: Abdominal location: periumbilical Qualified Code(s): R10.33 - Periumbilical pain Code(s): R10.9 - Unspecified abdominal pain Status: Acute Assessment and Plan: - CT abd/pelvis, 01/25: 1. Haziness to the fat surrounding the normal-appearing gallbladder which is nonetheless raises concern for acute cholecystitis. Correlate for Ochoa sign and could consider further evaluation with either right upper quadrant ultrasound or HIDA scan. 2. Prominent diffuse hepatic steatosis. 3. Very small amount of nonspecific ascites in the deep pelvis. 4. Interval resolution of a now chronic residual 10 x 10 x 1.5 cm left rectus sheath seroma. - continue PPI - due to c/f acute choley on CT will start abx, Zosyn - check US of the RUQ (3) Cellulitis of lower limb: Qualifiers: Laterality: right Qualified Code(s): L03.115 - Cellulitis of right lower limb Code(s): L03.119 - Cellulitis of unspecified part of limb Status: Acute Assessment and Plan: Patient has worsening BLE, has been ongoing for some time but the erythema and blistering has worsened. Has been unable to remain compliant with compression stockings as his no longer fit. Suspected cellulitis of the RLE, however more in favor of stasis dermatitis. - started on Zosyn, concurrent concern for acute choley - wound RN consulted - continue outpatient mupirocin - continue Lasix, add Karthik wraps for compression (4) Benign hypertension: Onset Date: 04/11/11 Code(s): I10 - Essential (primary) hypertension Status: Chronic Assessment and Plan: - chronic, currently 125/81 - continue home medications: Metoprolol, Lasix - monitor (5) Obstructive sleep apnea: Code(s): G47.33 - Obstructive sleep apnea (adult) (pediatric) Status: Acute Assessment and Plan: - continue home CPAP Plan Diet: Low-fat diet GI Prophylaxis: Ppi IV b.i.d. DVT Prophylaxis: Lovenox IV fluids: None Lines/Tubes: Peripheral IV Code Status: Full code Quality VTE Prophylaxis VTE prophylaxis: pharmacologic ordered Hospitalist [facility] Advance Care Plan I have confirmed that the patient's Advanced Care Plan is present, code status is documented, or surrogate decision maker is listed in patient medical record.: Yes Medication Reconciliation I have utilized all available resources to obtain, update and review the patients current medications (includes all prescriptions, OTC, herbals, cannabis, and nutritional supplements).: Yes
[2025-01-25 18:31] LABS: Iron 144 ug/dL (49-181)
[2025-01-25 18:32] LABS: Lipase 114 U/L (23-300)
[2025-01-25 18:40] LABS: Percent Iron Saturation 82 % (20-50)
[2025-01-25 18:43] LABS: Alanine Aminotransferase 210 U/L (6-50); Albumin Level 3.0 g/dL (3.5-5.1); Alkaline Phosphatase 845 U/L (38-126); Aspartate Amino Transferase 516 U/L (17-59); Bilirubin,Total 5.5 mg/dL (0.2-1.3); Total Protein 6.5 g/dL (6.3-8.2)
[2025-01-25 19:07] LABS: Hepatitis B Surface Antigen Negative (Negative)
[2025-01-25 19:13] LABS: HAV RESULT Negative (Negative); Hepatitis B Core IgM Result Negative (Negative)
[2025-01-25 19:25] LABS: Hepatitis B Surface Anti Res Negative
[2025-01-25 19:50] LABS: Ferritin 1510.00 ng/mL (11.1-264)
[2025-01-25] MEDS: Please enter patient height and weight for medication dosing 1 EACH XX (19:55)
[2025-01-25 20:26] VITALS: BP 125/81; PULSE 78; RESP 17; TEMP 36.8; O2SAT 99
[2025-01-25 20:37] LABS: Immunoglobulin A 518 mg/dL (70-400); Immunoglobulin G 1518 mg/dL (700-1600); Immunoglobulin M 123 mg/dL (40-230)
[2025-01-26] VITALS (9 sets, daily range): BP systolic 113–134; BP diastolic 64–75; PULSE 78–87; RESP 17–23; TEMP 36.5–36.7; O2SAT 96–100
--- NOTE | 2025-01-26 | ECHO_ITS ---
Patient Info Name: Ap Briscoe Age: 54 years : 1970 Gender: Male Ht: 71 in Wt: 354 lbs BSA: 2.92 m2 HR: 73 bpm BP: 113 / 64 mmHg Heart Rhythm: Sinus Rhythm Technical Quality: Fair Exam Date: 01/26/2025 2:15 PM Patient Status: O Admit Date: 01/25/2025 Exam Type: CA echo doppler color flow Complete two-dimensional, color flow and Doppler transthoracic echocardiogram is performed. Staff Referring Physician: Shanon Askew Advertising Internship: Beata Dugan Attending Provider: Rubens Aceves Summary 1. Complete two-dimensional, color flow and Doppler transthoracic echocardiogram is performed. 2. Normal left ventricular size, thickness systolic and diastolic function. 3. Normally functioning cardiac valves. 4. No explanation for patient's edema. Left Ventricle Left ventricular chamber dimension is normal. Left ventricular systolic function is normal, estimated at 55-60. The left ventricular diastolic function is normal. Right Ventricle Right ventricular chamber dimension is normal. Left Atria Left atrial chamber dimension is normal. Right Atria Right atrial chamber dimension is normal. Aortic Valve The aortic valve is normal. Pulmonic Valve The pulmonic valve is not well visualized. Mitral Valve The mitral valve has normal leaflets. Tricuspid Valve The tricuspid valve leaflets are normal. Pericardium/Pleural The pericardium appears normal. Aorta The aortic root size at the sinus of Valsalva is normal. Left Ventricular Outflow Tract Name Value Normal LVOT 2D LVOT Diameter 2.0 cm LVOT Doppler LVOT Peak Velocity 124 cm/s LVOT Peak Gradient 6 mmHg LVOT Mean Gradient 4 mmHg LVOT VTI 23 cm LVOT VTI/AV VTI Ratio 0.8 LVOT Stroke Volume 73 ml LVOT CO 17.7 l/min LVOT CI 6.1 l/min/m2 Pulmonic Valve Name Value Normal PV Doppler PV Peak Velocity 119 cm/s PV Peak Gradient 6 mmHg Mitral Valve Name Value Normal MV Diastolic Function MV E Peak Velocity 72 cm/s MV A Peak Velocity 63 cm/s MV E/A 1.1 MV Decel Time (PW) 161 ms MV Annular TDI MV E/e' (Septal) 8.3 MV E/e' (Lateral) 6.9 MV E/e' (Average) 7.6 Tricuspid Valve Name Value Normal TV Annular TDI TV Lateral Nimisha s' Velocity 13.7 cm/s >=9.5 Aorta Name Value Normal Ascending Aorta Ao Root Diameter (MM) 3.4 cm Ao Root Diam Index (MM) 1.2 cm/m2 Aortic Valve Name Value Normal AV Doppler AV Peak Velocity 134 cm/s AV Peak Gradient 7 mmHg AV Mean Gradient 4 mmHg AV VTI 28 cm AV Area (Cont Eq VTI) 2.6 cm2 >=3.0 AV Area (Cont Eq Italo) 2.9 cm2 AV DI (Italo) 0.93 AV Regurgitation 2D LVOT Area 3.2 cm2 Ventricles Name Value Normal LV Dimensions 2D/MM IVS Diastolic Thickness (2D) 1.0 cm 0.6-1.0 LVID Diastole (2D) 4.3 cm 4.2-5.8 LVIW Diastolic Thickness (2D) 1.0 cm 0.6-1.0 LVID Systole (2D) 3.0 cm 2.5-4.0 LVOT Diameter 2.0 cm LV Mass (2D Cubed) 138.97 g 88.00-224.00 LV Mass Index (2D Cubed) 48 g/m2 49-115 Relative Wall Thickness (2D) 0.46 <=0.42 LV Fractional Shortening/Ejection Fraction 2D/MM LV Fractional Shortening (2D) 28 % 25-43 LV EF (2D Teichholz) 55 % LV Diastolic Volume (4C MOD) 111 ml LV EF (4C MOD) 55 % LV Diastolic Volume (2C MOD) 116 ml LV EF (2C MOD) 53 % LV Diastolic Volume (BP MOD) 115 ml 62-150 LV Diastolic Volume Index (BP MOD) 39 ml/m2 34-74 LV Systolic Volume (BP MOD) 52 ml 21-61 LV Systolic Volume Index (BP MOD) 18 ml/m2 11-31 LV EF (BP MOD) 55 % 52-72 LV Diastolic Length (4C) 8.3 cm LV Systolic Length (4C) 6.7 cm LV Stroke Volume (4C MOD) 61 ml RV Dimensions 2D/MM RVID Diastole (2D) 3.9 cm 2.1-3.5 Atria Name Value Normal LA Dimensions LA Volume (4C A-L) 48 ml LA Volume (BP A-L) 49 ml RA Dimensions RA Systolic Major [place] Length (4C) 4.4 cm 2.1-2.7 RA Area (4C) 14.4 cm2 <=18.0 Report Signatures
[2025-01-26] MEDS: PIPERACILLIN/TAZOBACTAM SOD 3.375 GM in SODIUM CHLORIDE 0.9% IV 50 ML 100 ML IVPB ×5 (01:23→23:29)
[2025-01-26 05:58] LABS: Alanine Aminotransferase 176 U/L (6-50); Albumin Level 2.4 g/dL (3.5-5.1); Alkaline Phosphatase 705 U/L (38-126); Anion Gap 1 mmol/L (4-12); Aspartate Amino Transferase 463 U/L (17-59); Bilirubin,Total 5.2 mg/dL (0.2-1.3); Blood Urea Nitrogen 11 mg/dL (9-20); Calcium 7.9 mg/dL (8.4-10.2); Carbon Dioxide 32 mmol/L (22-30); Chloride 101 mmol/L (98-107); Estimated CRCL calculation 119 ml/min; Estimated Glomerular Filt Rate > 60; Glucose 80 mg/dL (65-110); Potassium 4.2 mmol/L (3.4-5.0); Sodium 134 mmol/L (137-145); Total Protein 5.3 g/dL (6.3-8.2)
[2025-01-26 06:33] LABS: Hematocrit 41.3 % (42.0-52.0); Hemoglobin 14.2 g/dL (14.0-18.0); Immature Granulocyte Percent A 0.3 % (0-0.5); Immature Platelet Fraction Pct 4.5 % (0.9-11.2); Lymphocytes Absolute Auto 0.89 K/mm3 (0.9-3.2); Mean Corpuscular HGB Conc 34.4 g/dl (32-36); Mean Corpuscular Hemoglobin 32.1 pg (26-34); Mean Corpuscular Volume 93.2 fl (80-100); Nucleated Red Blood Cells Absolute Auto 0.000 K/mm3 (0.0-0.012); Nucleated Red Blood Cells Perc 0.0 % (0.0-0.2); Platelet Count Result 72 k/mm3 (150-375); Red Blood Count 4.43 M/mm3 (4.6-6.20); White Blood Count 3.9 K/mm3 (4.5-10.0)
--- NOTE | 2025-01-26 07:21 | P.CONGI_ITS ---
Assessment and Plan Assessment and plan (1) Cellulitis, leg: Code(s): L03.119 - Cellulitis of unspecified part of limb Status: Acute (2) Elevated LFTs: Code(s): R79.89 - Other specified abnormal findings of blood chemistry Status: Acute Assessment and Plan: Based on the patient's lab results and clinical presentation, his significantly elevated transaminases appear to be a consequence of multiple contributing factors. The patient exhibits signs of a pre-existing chronic liver disease, suspicious for cirrhosis, evidenced by his low platelet count, slightly prolonged INR, low albumin, and small amount of ascites noted on his abdominal CT. The most likely causes for this chronic condition are his long-term alcohol use and a possible underlying iron overload state. His alcohol consumption and obesity are known to cause elevated liver enzymes but certainly not this degree. However, his iron saturation of 82% raises strong suspicion for hereditary hemochromatosis, a condition that can be exacerbated by alcohol. Furthermore, the presence of arthritis in his hands is another clinical finding that supports a diagnosis of hemochromatosis. Will initiate diuretic regimen with spironolatone and furosemide orally. Finally, the recent use of the NSAID celecoxib may have been the precipitating factor that led to the acute decompensation of his already chronic liver disease. Will discontinue this medication. Plan - Spironolactone 100 mg + Furosemide 40 mg to be started - Patient is not having GI bleeding, no need for IV pantoprazole, will d/c - Genetic test for hereditary hemochromatosis ordered - Hand X ray to assess for the typical hemochromatosis findings (which parallel the liver disease) - Doppler sonogram of the liver to assess for portal hypertension changes - Will consider liver biopsy once we obtain the sonogram information GI Consult Note Consult date/time: 01/26/25 07:21 Reason for consult: Increased transaminases HPI: Mr. Ap Briscoe Jr., a 54-year-old male, was evaluated in the emergency room for severe bilateral leg edema with open, weeping sores. The patient has a significant history of alcohol use, consuming four beers daily for the past four to five years, and has experienced intermittent leg swelling for three months, which worsened considerably in the last two weeks. He was previously prescribed furosemide, but it did not alleviate the swelling. Initial lab work showed markedly elevated liver enzymes and abnormal liver function: * AST: 538 * ALT: 204 * Alkaline Phosphatase: 784 * Albumin: 3.0 * Total Bilirubin: 5.5 Other notable lab results include: * White Blood Cell Count: 4.2 * Platelets: 80,000 * INR: 1.21 * Ferritin: 1510 * Iron Saturation: 82% The patient's medical history also includes arthritis in both hands and chronic lower back and right hip pain, managed with an implanted morphine pump. It is important to note that he has been taking celecoxib once a day for the past two months. He denies illicit drug use, or other sjqu-hil-evgpoer medication. He denies herbal product consumption. Review of Systems 2 Review of Systems: All systems reviewed & are unremarkable except as noted in HPI and below PMFSH Past Medical History Medical History GERD (gastroesophageal reflux disease) Osteoporosis HLD (hyperlipidemia) Avascular necrosis Obstructive sleep apnea Exposure to COVID-19 virus Right sided sciatica Depression Diffuse arthralgia (04/09/13) Gout, unspecified (02/11/15) Benign hypertension (04/11/11) Intermittent claudication (03/06/13) Surgical History Surgical History Hx of cardiac catheterization 02/2021 Family History Family History Father , 53 Family history of coronary artery disease Acute myocardial infarction Mother , 61 Brain tumor Other Arthritis Cancer Hypertension Social History Social History Smoking packs per day: 2 Smoking cigarettes per day: 40.0 Years smoked: 15 Smoking pack-years: 30.00 Smoking status: Former smoker Tobacco type: cigarettes Smoking end date: 05/20/11 Additional smoking assessment comments: smoked 1 ppd x 15 years Alcohol intake: current Drinks per week: 24 Substance use: never Substance use type: does not use Lack of Transportation: No Lack of Food: Never True Current Housing: I Have Housing Concerned About Future Housing: No Difficulty Paying Gas/Electric Bills: No Difficulty Paying for Meds: No Currently Unemployed: No Education: High School Diploma/GED Difficulty w/ Childcare or Family Care: No Occupation/Education: occupation Gender identity (if verbalized by the patient): Male Spiritual care concerns: No Meds Home Medications and Allergies Home Medications ?Medication ?Instructions ?Recorded ?Confirmed ?Type aspirin 81 mg tablet,delayed See Rx Instructions .Rout e 03/07/23 01/25/25 Rx release .COMPLEX #90 tabs atorvastatin 40 mg tablet See Rx Instructions .Route 1 01/25/25 Rx .COMPLEX #30 tabs metoprolol succinate 25 mg See Rx Instructions .Route 08/25/24 01/25/25 Rx tablet,extended release 24 hr .COMPLEX #15 tabs allopurinol 100 mg tablet See Rx Instructions .Route 0 10/05/24 01/25/25 Rx .COMPLEX #120 tabs venlafaxine 75 mg capsule,extended See Rx Instructions .Route 10/05/24 01/25/25 Rx release 24 hr .COMPLEX #30 caps bupropion HCl 300 mg 24 hr tablet, See Rx Instructions .Route 11/04/24 01/25/25 Rx extended release .COMPLEX #30 tabs celecoxib 200 mg capsule See Rx Instructions .Route 0 12/14/24 01/25/25 Rx .COMPLEX #60 caps amoxicillin 875 mg-potassium 1 tablet PO BID #20 tabs 01/25/25 01/25/25 Rx clavulanate 125 mg tablet furosemide 20 mg tablet 20 mg PO DAILY 01/25/2501/11 History mupirocin 2 % topical ointment 1 applic topical BID #2 2 grams 01/25/25 01/25/25 Rx ([facility]) Allergies Allergy/AdvReac Type Severity Reaction Status Date / Time No Known Allergies Allergy Verified 01/25/25 11:36 Vital Signs Vital Signs - 24 hr 01/25/25 17:45 01/25/25 18:06 01/25/25 20:00 Temperature 98.1 F Pulse Rate 70 Respiratory Rate 18 Blood Pressure 122/78 Pulse Oximetry 100 Oxygen Delivery Room Air Room Air 01/25/25 20:26 01/26/25 00:00 01/26/25 02:18 Temperature 98.2 F Pulse Rate 78 86 Respiratory Rate 17 23 H 22 H Blood Pressure 125/81 Pulse Oximetry 99 96 Oxygen Delivery Autopap Autopap 01/26/25 04:18 01/26/25 04:35 Temperature 98.0 F Pulse Rate 84 79 Respiratory Rate 22 H 18 Blood Pressure 113/64 Pulse Oximetry 96 98 Oxygen Delivery Autopap Exam 2 Narrative: Alert oriented x3, significant obesity. Mild scleral jaundice. Abdomen: Prominent, unable to assess the presence of hepatosplenomegaly or masses, nontender. Extremities: [id number] bandaged legs. Results Labs 01/26/25 04:32 01/26/25 04:32 Labs: BMP 01/26/25 04:32 Sodium 134 L Potassium 4.2 Chloride 101 Carbon Dioxide 32 H BUN 11 Creatinine 0.96 Glucose 80 Calcium 7.9 L Liver Function 01/25/25 01/26/25 Range/Units 18:08 04:32 Total Bilirubin 5.5 H 5.2 H (0.2-1.3) mg/dL Direct Bilirubin 2.3 H (0-0.3) mg/dL AST 516 H 463 H (17-59) U/L ALT 210 H 176 H (6-50) U/L Alkaline Phosphatase 845 H 705 H (38-126) U/L Albumin 3.0 L 2.4 L (3.5-5.1) g/dL
--- NOTE | 2025-01-26 07:24 | P.PNIM_ITS ---
Progress Note: A&P Assessment and Plan (1) Transaminitis: Code(s): R74.01 - Elevation of levels of liver transaminase levels Status: Acute Assessment and Plan: - on admission, total bilirubin 5.5, direct bilirubin 2.3, AST 560, ALT 210, alk-phos 845. Downtrending. - denies herbal supplement use or recent antibiotic use - daily ETOH use, 4 beers daily. Reports previous heavier use. - CT initially concerning for acute cholecystitis, patient reporting daily nausea with intermittent dry heaving and intermittent umbilical pain for the past 2-3 weeks increasing concerns for GB etiology. Abdominal pain resolved today. - GI consulted (Dr. Mondragon) - suspect multiple contributing factors including pre-existing chronic liver disease suspicious for cirrhosis. Likely due to alcohol abuse vs. hemochromatosis given elevated ferritin. Recommended to start Aldactone and furosemide. Ordered genetic test for hemochromatosis, Hand x-ray to evaluate for typical hemochromatosis find words. Right upper quadrant ultra sound and Doppler sonogram of the liver ordered. - hold statin - trend LFTs - follow-up blood cultures (2) Abdominal pain: Qualifiers: Abdominal location: periumbilical Qualified Code(s): R10.33 - Periumbilical pain Code(s): R10.9 - Unspecified abdominal pain Status: Acute Assessment and Plan: - CT abd/pelvis, 01/25: 1. Haziness to the fat surrounding the normal-appearing gallbladder which raises concern for acute cholecystitis. Correlate for Ochoa sign and could consider further evaluation with either right upper quadrant ultrasound or HIDA scan. 2. Prominent diffuse hepatic steatosis. 3. Very small amount of nonspecific ascites in the deep pelvis. 4. Interval resolution of a now chronic residual 10 x 10 x 1.5 cm left rectus sheath seroma. - continue PPI - due to concern for acute choley on CT will start abx, Zosyn. However today, patient denies upper abdominal pain. Afebrile, no leukocytosis. Doubt GB pathology. - check US of the RUQ (3) Cellulitis of lower limb: Qualifiers: Laterality: right Qualified Code(s): L03.115 - Cellulitis of right lower limb Code(s): L03.119 - Cellulitis of unspecified part of limb Status: Acute Assessment and Plan: Patient has worsening BLE, has been ongoing for some time but the erythema and blistering has worsened. Has been unable to remain compliant with compression stockings as his no longer fit. Suspected cellulitis of the RLE, however more in favor of stasis dermatitis. - BNP 106 - started on Zosyn, concurrent concern for acute cholecystitis - wound RN consulted - continue outpatient mupirocin - continue Lasix and Aldactone, add Karthik wraps for compression - check echo (4) Benign hypertension: Onset Date: 04/11/11 Code(s): I10 - Essential (primary) hypertension Status: Chronic Assessment and Plan: - chronic, currently 125/81 - continue home medications: Metoprolol, Lasix - monitor (5) Obstructive sleep apnea: Code(s): G47.33 - Obstructive sleep apnea (adult) (pediatric) Status: Acute Assessment and Plan: - continue home CPAP (6) Alcohol use: Code(s): F10.90 - Alcohol use, unspecified, uncomplicated Status: Acute Assessment and Plan: - drinks 4 beers daily. Reports prior history of heavier alcohol abuse - no history of withdrawal (7) Thrombocytopenia: Code(s): D69.6 - Thrombocytopenia, unspecified Status: Acute Assessment and Plan: - Plts 72, normal in 01/2025 - could potentially be due to cirrhosis - consult hematology, appreciate recs - monitor CBC Plan Diet: Low-fat diet DVT Prophylaxis: SCDs Code Status: Full code Subjective Date/time seen: 01/26/25 07:24 Interval history: 54 y/o M with PMH of hyperlipidemia, osteoporosis, DAWSON, depression, gout, hypertension presents here from his PCP office for further evaluation of abnormal lab work. Patient seen and examined at bedside. Doing well, denied acute complaints. Did admit to some occasional SOB. Review of Systems Review of Systems: All systems reviewed & are unremarkable except as noted in HPI and below Exam Narrative: General: NAD, obese Eyes: EOMI ENT: neck supple, + scleral icterus Cardiovascular: Regular rate and rhythm Respiratory: Clear to auscultation, respirations even and unlabored on RA Gastrointestinal: Soft, non tender Genitourinary: no suprapubic tenderness Musculoskeletal: moderate BLE edema. BLE in KARTHIK wraps. Skin: warm, dry Neuro: Alert and oriented. Psych: Mood appropriate Objective Data Vital Signs Vital Signs: Vital Signs - 24 hr 01/25/25 17:45 01/25/25 18:06 01/25/25 20:00 Temperature 98.1 F Pulse Rate 70 Respiratory Rate 18 Blood Pressure 122/78 Pulse Oximetry 100 Oxygen Delivery Room Air Room Air 01/25/25 20:26 01/26/25 00:00 01/26/25 02:18 Temperature 98.2 F Pulse Rate 78 86 Respiratory Rate 17 23 H 22 H Blood Pressure 125/81 Pulse Oximetry 99 96 Oxygen Delivery Autopap Autopap 01/26/25 04:18 01/26/25 04:35 Temperature 98.0 F Pulse Rate 84 79 Respiratory Rate 22 H 18 Blood Pressure 113/64 Pulse Oximetry 96 98 Oxygen Delivery Autopap Intake/Output Intake/Output: Intake & Output 01/23/25 01/24/25 01/25/25 01/26/25 23:59 23:59 23:59 23:59 Intake Total 240 100 Balance 240 100 Meds/Results Medications: Active Medications Generic Name Dose Route Start Last Admin Trade Name Freq PRN Reason Stop Dose Admin Acetaminophen 650 mg 01/25/25 17:18 Acetaminophen 325 Mg Tablet PO Q4H PRN Mild Pain (1-3) or Fever Hydrocodone Bitart/Acetaminophen 1 tab 01/25/25 17:18 Hydrocodone/Acetaminophen (*Crx) 5-325 Mg Tablet PO Q4H PRN Moderate Pain (4-6) Allopurinol 400 mg 01/26/25 08:00 Allopurinol 100 Mg Tablet PO DAILY@0800 [facility] Aspirin 81 mg 01/26/25 09:00 Aspirin 81 Mg Enteric Tablet PO DAILY [facility] Bisacodyl 5 mg 01/25/25 17:18 Bisacodyl 5 Mg Tablet Ec PO DAILY PRN Constipation Bupropion HCl 150 mg 01/26/25 09:00 Bupropion Hcl Xl (24 Hr) 150 Mg Tabcr PO QAM [facility] Celecoxib 200 mg 01/26/25 08:00 Celecoxib 200 Mg Capsule PO DAILY@0800 [facility] Enoxaparin Sodium 40 mg 01/26/25 09:00 Enoxaparin 40 Mg/0.4 Ml Syringe SUB-Q DAILY [facility] Furosemide 20 mg 01/26/25 09:00 Furosemide 20 Mg Tablet PO DAILY [facility] Piperacillin Sod/Tazobactam 50 mls @ 100 mls/hr 01/26/25 00:15 01/26/25 05:35 Sod 3.375 gm/ Sodium Chloride IVPB Infused Q6HR [facility] Infusion Metoprolol Succinate 12.5 mg 01/26/25 09:00 Metoprolol Succinate Ext Rel 12.5 Mg Tabcr PO QAM [facility] Mupirocin 1 applic 01/26/25 09:00 Mupirocin 2% Oint 22 Gm Tube TOPICAL Q12H [facility] Ondansetron HCl 4 mg 01/25/25 17:18 Ondansetron Inj 4 Mg/2 Ml Vial IV PUSH Q6H PRN Nausea And Vomiting Pantoprazole Sodium 40 mg 01/26/25 09:00 Pantoprazole Sodium Iv 40 Mg Vial IV PUSH Q12HR [facility] Venlafaxine HCl 75 mg 01/26/25 09:00 Venlafaxine Hcl Xr 75 Mg Cap.Er.24h PO DAILY [facility] Labs Labs: Laboratory Results - last 24 hr 01/25/25 01/25/25 01/25/25 17:58 18:08 18:08 Sodium Potassium Chloride Carbon Dioxide Anion Gap BUN Creatinine Estim Creat Clear Calc Estimated GFR Glucose Calcium Iron 144 TIBC 176 L % Saturation 82 H Ferritin 1510.00 H Total Bilirubin 5.5 H Direct Bilirubin 2.3 H AST 516 H ALT 210 H Alkaline Phosphatase 845 H Total Protein 6.5 Albumin 3.0 L Lipase 114 Immunoglobulin A Cancelled Immunoglobulin G Cancelled Immunoglobulin M Cancelled IgG 1518 IgA 518 H IgM 123 Hepatitis A IgM Ab Negative Hep Bs Antigen Negative Hep Bs Antibody Negative Hep B Core IgM Ab Negative Hepatitis C Ab Screen Negative Negative 01/26/25 04:32 Sodium 134 L Potassium 4.2 Chloride 101 Carbon Dioxide 32 H Anion Gap 1 L BUN 11 Creatinine 0.96 Estim Creat Clear Calc 119 Estimated GFR > 60 Glucose 80 Calcium 7.9 L Iron TIBC % Saturation Ferritin Total Bilirubin 5.2 H Direct Bilirubin AST 463 H ALT 176 H Alkaline Phosphatase 705 H Total Protein 5.3 L Albumin 2.4 L Lipase Immunoglobulin A Immunoglobulin G Immunoglobulin M IgG IgA IgM Hepatitis A IgM Ab Hep Bs Antigen Hep Bs Antibody Hep B Core IgM Ab Hepatitis C Ab Screen Quality VTE Prophylaxis VTE prophylaxis: pharmacologic ordered
[2025-01-26 07:31] LABS: Schistocytes None Seen; Target Cells 1+
[2025-01-26] MEDS: VENLAFAXINE HCL XR 75 MG CAP.ER.24H PO (10:37)
[2025-01-26] MEDS: ASPIRIN 81 MG ENTERIC TABLET PO (10:38)
[2025-01-26] MEDS: FUROSEMIDE 40 MG TABLET PO (10:39)
[2025-01-26] MEDS: SPIRONOLACTONE 50 MG TABLET 100 MG PO (10:39)
[2025-01-26] MEDS: METOPROLOL SUCCINATE EXT REL 12.5 MG TABCR PO (10:39)
[2025-01-26] MEDS: buPROPion HCL XL (24 HR) 150 MG TABCR PO (10:40)
[2025-01-26] MEDS: PANTOPRAZOLE 40 MG TABLET PO (13:34)
--- NOTE | 2025-01-26 16:02 | PC.NURSE ---
On 01/26/25, the student, [Magaly Reynolds], provided care and completed [facility] documentation on this patient. I have reviewed the student's documentation and agree with the findings.
--- NOTE | 2025-01-26 18:34 | P.CONONC_ITS ---
Assessment and Plan Assessment and plan (1) Thrombocytopenia: Code(s): D69.6 - Thrombocytopenia, unspecified Status: Acute Assessment and Plan: Patient with platelet count of 80K at presentation on 01/26/25. This is in setting of acute transaminitis with questionable cholecystitis. CT scan and RUQ US done this admission show fatty liver disease. We don't have any CBC since 04/23/23 when platelets were 280K. There is mention of alcohol abuse as well. Etiology of thrombocytopenia could be liver disease, ITP and acute liver injury. Liver produces TPO which stimulates bone marrow for platelet production. In acute liver injury and compromised liver function, TPO production is impaired leading to low production of platelet from bone marrow. Liver disease causes peripheral destruction of platelets as well. Supportive care only with platelet transfusion if platelet less than 20K to keep platelets above 20K in infectious setting. HPI Data of Consult Date/Time: 01/26/25 18:34 Requesting Physician: Rubens Aceves MD Primary Care Provider: Angelo Morgan DO Consult Narrative Narrative: Ap Briscoe Jr. is a 54 year old male presented to ER on 01/25/25, sent in from the primary doctor for elevated liver function testing and cellulitis and wounds of the lower extremities. He was getting lab testing done for the lower extremity wounds and the LFT abnormalities were noted incidentally. No abdominal pain reported to ER physician at presentation. Slight nausea from time to time. Patient has not done blood work since 2022. Wounds have been on the lower extremities now for the past month. Patient has chronic lower extremity edema and some CHF. LFTs were noted to be very high with AST 528 and ALT 204. Alk Phos was 784. Patient underwent CT scan of abd/pelvis which showed haziness in fat surrounding gall bladder concerning for cholecystitis. Additionally noted was diffuse hepatic steatosis and deep pelvic ascites. There was mention of [id number] rectus sheath seroma Review of Systems 2 Review of Systems: Patient feels at his baseline. No RUQ pain. Some nausea intermittently. No fevers, chills, night sweats. No weight loss. No chest pain, dyspnea, cough or hemoptysis. NO hematochezia or melena. No hematuria. Rest of 12 point ROS is negative. [facility] Past Medical History Medical History GERD (gastroesophageal reflux disease) Osteoporosis HLD (hyperlipidemia) Avascular necrosis Obstructive sleep apnea Exposure to COVID-19 virus Right sided sciatica Depression Diffuse arthralgia (04/09/13) Gout, unspecified (02/11/15) Benign hypertension (04/11/11) Intermittent claudication (03/06/13) Surgical History Surgical History Hx of cardiac catheterization 02/2021 Family History Family History Father , 53 Family history of coronary artery disease Acute myocardial infarction Mother , 61 Brain tumor Other Arthritis Cancer Hypertension Social History Social History Smoking packs per day: 2 Smoking cigarettes per day: 40.0 Years smoked: 15 Smoking pack-years: 30.00 Smoking status: Former smoker Tobacco type: cigarettes Smoking end date: 05/20/11 Additional smoking assessment comments: smoked 1 ppd x 15 years Alcohol intake: current Drinks per week: 24 Substance use: never Substance use type: does not use Lack of Transportation: No Lack of Food: Never True Current Housing: I Have Housing Concerned About Future Housing: No Difficulty Paying Gas/Electric Bills: No Difficulty Paying for Meds: No Currently Unemployed: No Education: High School Diploma/GED Difficulty w/ Childcare or Family Care: No Occupation/Education: occupation Gender identity (if verbalized by the patient): Male Spiritual care concerns: No Meds Home Medications and Allergies Home Medications ?Medication ?Instructions ?Recorded ?Confirmed ?Type aspirin 81 mg tablet,delayed See Rx Instructions .Rout e 03/07/23 01/25/25 Rx release .COMPLEX #90 tabs atorvastatin 40 mg tablet See Rx Instructions .Route 1 01/25/25 Rx .COMPLEX #30 tabs metoprolol succinate 25 mg See Rx Instructions .Route 08/25/24 01/25/25 Rx tablet,extended release 24 hr .COMPLEX #15 tabs allopurinol 100 mg tablet See Rx Instructions .Route 0 10/05/24 01/25/25 Rx .COMPLEX #120 tabs venlafaxine 75 mg capsule,extended See Rx Instructions .Route 10/05/24 01/25/25 Rx release 24 hr .COMPLEX #30 caps bupropion HCl 300 mg 24 hr tablet, See Rx Instructions .Route 11/04/24 01/25/25 Rx extended release .COMPLEX #30 tabs celecoxib 200 mg capsule See Rx Instructions .Route 0 12/14/24 01/25/25 Rx .COMPLEX #60 caps amoxicillin 875 mg-potassium 1 tablet PO BID #20 tabs 01/25/25 01/25/25 Rx clavulanate 125 mg tablet furosemide 20 mg tablet 20 mg PO DAILY 01/25/2501/11 History mupirocin 2 % topical ointment 1 applic topical BID #2 2 grams 01/25/25 01/25/25 Rx ([facility]) Allergies Allergy/AdvReac Type Severity Reaction Status Date / Time No Known Allergies Allergy Verified 01/25/25 11:36 Vital Signs Vital Signs - 24 hr 01/25/25 20:00 01/25/25 20:26 01/26/25 00:00 Temperature 36.8 C Pulse Rate 78 86 Respiratory Rate 17 23 H Blood Pressure 125/81 Pulse Oximetry 99 96 Oxygen Delivery Room Air Autopap 01/26/25 02:18 01/26/25 04:18 01/26/25 04:35 Temperature 36.7 C Pulse Rate 84 79 Respiratory Rate 22 H 22 H 18 Blood Pressure 113/64 Pulse Oximetry 96 98 Oxygen Delivery Autopap Autopap 01/26/25 10:35 01/26/25 10:35 01/26/25 10:39 Temperature 36.6 C Pulse Rate 79 78 78 Respiratory Rate 18 17 Blood Pressure 129/66 Pulse Oximetry 98 98 Oxygen Delivery Autopap 01/26/25 14:00 Temperature 36.5 C Pulse Rate 87 Respiratory Rate 18 Blood Pressure 114/74 Pulse Oximetry 97 Oxygen Delivery Exam 2 Narrative: General: NAD, obese Eyes: EOMI ENT: neck supple, + scleral icterus Cardiovascular: Regular rate and rhythm Respiratory: Clear to auscultation, respirations even and unlabored on RA Gastrointestinal: Soft, non tender Genitourinary: no suprapubic tenderness Musculoskeletal: moderate BLE edema. BLE in MELY wraps. Skin: warm, dry Neuro: Alert and oriented. Psych: Mood appropriate Results Labs 01/26/25 06:26 01/26/25 04:32 Labs: Short CBC 01/26/25 Range/Units 06:26 WBC 3.9 L (4.5-10.0) K/mm3 Hgb 14.2 (14.0-18.0) g/dL Hct 41.3 L (42.0-52.0) % Plt Count 72 L D (150-375) k/mm3 BMP 01/26/25 04:32 Sodium 134 L Potassium 4.2 Chloride 101 Carbon Dioxide 32 H BUN 11 Creatinine 0.96 Glucose 80 Calcium 7.9 L Liver Function 01/25/25 01/26/25 Range/Units 18:08 04:32 Total Bilirubin 5.5 H 5.2 H (0.2-1.3) mg/dL Direct Bilirubin 2.3 H 2.0 H (0-0.3) mg/dL AST 516 H 463 H (17-59) U/L ALT 210 H 176 H (6-50) U/L Alkaline Phosphatase 845 H 705 H (38-126) U/L Albumin 3.0 L 2.4 L (3.5-5.1) g/dL Imaging Radiologist's impression: 01/25/25 CT scan abdomen/pelvis- FINDINGS: There is scattered linear discoid atelectasis/scarring in the right middle and lower lobes and lingula. Heart size is normal. No pericardial or pleural effusion. Prominent diffuse hepatic steatosis. There is haziness in the fat surrounding the normal-appearing nondilated gallbladder which measures 3.5 cm maximal diameter but which raises some concern for acute cholecystitis. Spleen, pancreas, bilateral adrenal glands and kidneys are normal. Bowels including the appendix are normal. There is a 10 x 10 x 1.5 cm loculated low-attenuation fluid collection within the left upper quadrant anterior abdominal wall musculature at the site of a previously seen hematoma consistent with residual seroma. Bladder is normal. Very small amount of ascites in the deep pelvis. No abscess or free intraperitoneal gas. There are moderate-sized bilateral fat-containing inguinal hernias. Partially visualized right total hip arthroplasty. Mild thoracic and lumbar spondylosis with unchanged prominent Schmorl's nodes along the superior endplates of T12 and L3. IMPRESSION: 1. Haziness to the fat surrounding the normal-appearing gallbladder which is nonetheless raises concern for acute cholecystitis. Correlate for Ochoa sign and could consider further evaluation with either right upper quadrant ultrasound or HIDA scan. 2. Prominent diffuse hepatic steatosis. 3. Very small amount of nonspecific ascites in the deep pelvis. 4. Interval resolution of a now chronic residual 10 x 10 x 1.5 cm left rectus sheath seroma. 01/26/25 Abdominal Ultrasound- FINDINGS: Borderline gallbladder wall thickening. Common bile duct measures 4 mm. No sonographic Ochoa's sign by the technologist. Liver echotexture is hyperechoic likely due to fatty infiltration or hepatocellular disease. Pancreas is not adequately visualized for evaluation The study is limited due to the patient's imaging characteristics. IMPRESSION: 1: Borderline gallbladder wall thickening. If concern for acute cholecystitis, consider a HIDA scan. 2. Liver is hyperechoic likely due to fatty infiltration and/or hepatocellular disease. 3. Limited study as above.
[2025-01-26] MEDS: HYDROcodone/acetaminophen (*CRX) 5-325 MG TABLET 1 TAB PO (20:19)
[2025-01-27 05:03] VITALS: BP 118/80; PULSE 56; RESP 18; TEMP 36.7; O2SAT 100
[2025-01-27] MEDS: PIPERACILLIN/TAZOBACTAM SOD 3.375 GM in SODIUM CHLORIDE 0.9% IV 50 ML 100 ML IVPB ×4 (05:09→23:56)
[2025-01-27 06:02] LABS: Hematocrit 42.3 % (42.0-52.0); Hemoglobin 14.7 g/dL (14.0-18.0); Immature Granulocyte Percent A 0.3 % (0-0.5); Immature Platelet Fraction Pct 6.4 % (0.9-11.2); Lymphocytes Absolute Auto 0.97 K/mm3 (0.9-3.2); Mean Corpuscular HGB Conc 34.8 g/dl (32-36); Mean Corpuscular Hemoglobin 32.4 pg (26-34); Mean Corpuscular Volume 93.2 fl (80-100); Nucleated Red Blood Cells Absolute Auto 0.000 K/mm3 (0.0-0.012); Nucleated Red Blood Cells Perc 0.0 % (0.0-0.2); Platelet Count Result 62 k/mm3 (150-375); Red Blood Count 4.54 M/mm3 (4.6-6.20); White Blood Count 3.0 K/mm3 (4.5-10.0)
[2025-01-27 06:30] LABS: Alanine Aminotransferase 175 U/L (6-50); Albumin Level 2.7 g/dL (3.5-5.1); Alkaline Phosphatase 730 U/L (38-126); Anion Gap 5 mmol/L (4-12); Aspartate Amino Transferase 412 U/L (17-59); Bilirubin,Total 5.6 mg/dL (0.2-1.3); Blood Urea Nitrogen 7 mg/dL (9-20); Calcium 7.6 mg/dL (8.4-10.2); Carbon Dioxide 34 mmol/L (22-30); Chloride 98 mmol/L (98-107); Creatine Kinase 119 U/L (55-170); Estimated CRCL calculation 113 ml/min; Estimated Glomerular Filt Rate > 60; Glucose 89 mg/dL (65-110); Potassium 3.0 mmol/L (3.4-5.0); Sodium 137 mmol/L (137-145); Total Protein 6.1 g/dL (6.3-8.2)
[2025-01-27 06:49] LABS: Smudge Cells PRESENT
[2025-01-27 06:51] LABS: Anisocytosis 1+; Target Cells 1+
[2025-01-27 06:52] LABS: Schistocytes None Seen
--- NOTE | 2025-01-27 07:51 | P.PNGI_ITS ---
Progress Note: A&P Assessment and Plan (1) Thrombocytopenia: Code(s): D69.6 - Thrombocytopenia, unspecified Status: Acute Assessment and Plan: The patient has suspected cirrhosis, likely due to a combination of factors including metabolic associated steatotic liver disease, alcohol use, and a possible underlying iron overload. While the genetic study for hemochromatosis is pending, the significantly elevated ferritin and iron saturation levels are highly suggestive of the condition. The patient's low platelet count further supports the diagnosis of cirrhosis, as well as hypoalbuminemia and trace ascites found on sonogram and his current severe leg edema. An outpatient percutaneous liver biopsy would be the ideal next step to confirm the diagnosis and determine the extent of liver damage. However, due to the patient's severe thrombocytopenia this procedure carries a high risk of bleeding. We will consider a transjugular liver biopsy once their cellulitis has resolved. The patient will be referred to [facility] for this procedure after discharge. To address the patient's fluid retention, he has been started on a diuretic regimen of spironolactone and furosemide. We will monitor daily weight and urinary output. (2) Elevated LFTs: Code(s): R79.89 - Other specified abnormal findings of blood chemistry Status: Acute Subjective Date/time seen: 01/27/25 07:51 Interval history: patient feels somewhat better, less leg discomfort / pain. 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 Objective Data Vital Signs Vital Signs: Vital Signs - 24 hr 01/26/25 10:35 01/26/25 10:35 01/26/25 10:39 Temperature 98 F Pulse Rate 79 78 78 Respiratory Rate 18 17 Blood Pressure 129/66 Pulse Oximetry 98 98 Oxygen Delivery Autopap 01/26/25 14:00 01/26/25 20:00 01/26/25 20:48 Temperature 97.7 F 98.1 F Pulse Rate 87 78 Respiratory Rate 18 17 Blood Pressure 114/74 134/75 Pulse Oximetry 97 100 100 Oxygen Delivery Room Air 01/27/25 05:03 Temperature 98.0 F Pulse Rate 56 L Respiratory Rate 18 Blood Pressure 118/80 Pulse Oximetry 100 Oxygen Delivery Intake/Output Intake/Output: Intake & Output 01/24/25 01/25/25 01/26/25 01/27/25 23:59 23:59 23:59 23:59 Intake Total 240 1360 450 Balance 240 1360 450 Meds/Results Medications: Active Medications Generic Name Dose Route Start Last Admin Trade Name Freq PRN Reason Stop Dose Admin Acetaminophen 650 mg 01/25/25 17:18 Acetaminophen 325 Mg Tablet PO Q4H PRN Mild Pain (1-3) or Fever Hydrocodone Bitart/Acetaminophen 1 tab 01/25/25 17:18 01/26/25 20:19 Hydrocodone/Acetaminophen (*Crx) 5-325 Mg Tablet PO 1 tab Q4H PRN Administration Moderate Pain (4-6) Allopurinol 400 mg 01/26/25 08:00 01/26/25 10:38 Allopurinol 100 Mg Tablet PO 400 mg DAILY@0800 TERESO Administration Aspirin 81 mg 01/26/25 09:00 01/26/25 10:38 Aspirin 81 Mg Enteric Tablet PO 81 mg DAILY TERESO Administration Bisacodyl 5 mg 01/25/25 17:18 Bisacodyl 5 Mg Tablet Ec PO DAILY PRN Constipation Bupropion HCl 150 mg 01/26/25 09:00 01/26/25 10:40 Bupropion Hcl Xl (24 Hr) 150 Mg Tabcr PO 150 mg QAM TERESO Administration Furosemide 40 mg 01/26/25 09:00 01/26/25 10:39 Furosemide 40 Mg Tablet PO 40 mg DAILY TERESO Administration Piperacillin Sod/Tazobactam 50 mls @ 100 mls/hr 01/26/25 00:15 01/27/25 05:09 Sod 3.375 gm/ Sodium Chloride IVPB 100 mls/hr Q6HR TERESO Administration Metoprolol Succinate 12.5 mg 01/26/25 09:00 01/26/25 10:39 Metoprolol Succinate Ext Rel 12.5 Mg Tabcr PO 12.5 mg QAM TERESO Administration Ondansetron HCl 4 mg 01/25/25 17:18 Ondansetron Inj 4 Mg/2 Ml Vial IV PUSH Q6H PRN Nausea And Vomiting Pantoprazole Sodium 40 mg 01/27/25 09:00 Pantoprazole 40 Mg Tablet PO QAM TERESO Perflutren Lipid Microsphere 0 ml 01/26/25 07:36 Perflutren Lipid Microspheres 1.5 Ml Vial Diluted To 10 Ml Total Volume IV PUSH 01/29/25 07:36 ONCE PRN adequate visualization Protocol Spironolactone 100 mg 01/26/25 09:00 01/26/25 10:39 Spironolactone 50 Mg Tablet PO 100 mg QAM TERESO Administration Venlafaxine HCl 75 mg 01/26/25 09:00 01/26/25 10:37 Venlafaxine Hcl Xr 75 Mg Cap.Er.24h PO 75 mg DAILY TERESO Administration Radiology Results: ITS Impressions Hand X-Ray 01/26/25 09:35 IMPRESSION: 1. Joint space narrowing in both hands as detailed above. Arterial/Peripheral Duplex 01/26/25 10:38 IMPRESSION: 1. Normal directional flow and Doppler waveforms in the hepatic artery, the main, left and right portal veins and the middle hepatic vein. No evidence of portal venous hypertension. The left and right hepatic veins were unable to be visualized but are patent and contrast opacified on CT from one day prior. Upper Quadrant Ultrasound 01/26/25 13:08 IMPRESSION: 1: Borderline gallbladder wall thickening. If concern for acute cholecystitis, consider a HIDA scan. 2. Liver is hyperechoic likely due to fatty infiltration and/or hepatocellular disease. 3. Limited study as above. Labs Labs: Laboratory Results - last 24 hr 01/26/25 01/27/25 04:32 05:22 WBC 3.0 L RBC 4.54 L Hgb 14.7 Hct 42.3 MCV 93.2 MCH 32.4 MCHC 34.8 RDW 16.3 H Plt Count 62 L MPV 11.6 H Immature Gran % (Auto) 0.3 Neut % (Auto) 51.1 Lymph % (Auto) 32.0 [place] % (Auto) 11.6 H Eos % (Auto) 4.0 Baso % (Auto) 1.0 Lymph # (Auto) 0.97 [place] # (Auto) 0.4 Eos # (Auto) 0.1 Baso # (Auto) 0.0 Abs Immat Gran (auto) 0.01 Absolute Neuts (auto) 1.6 Absolute Nucleated RBC 0.000 Band Neutrophils % Not Reportable Nucleated RBC % 0.0 Smudge Cells Present Platelet Estimate Decreased % Immature Plt Fraction 6.4 Anisocytosis 1+ Target Cells 1+ Schistocytes None seen Sodium 137 Potassium 3.0 L Chloride 98 Carbon Dioxide 34 H Anion Gap 5 BUN 7 L Creatinine 1.01 Estim Creat Clear Calc 113 Estimated GFR > 60 Glucose 89 Calcium 7.6 L Total Bilirubin 5.6 H Direct Bilirubin 2.0 H Indirect Bilirubin 1.1 AST 412 H ALT 175 H Alkaline Phosphatase 730 H Total Creatine Kinase 119 Total Protein 6.1 L Albumin 2.7 L
[2025-01-27 08:24] VITALS: BP 122/78; PULSE 81
[2025-01-27 08:25] VITALS: PULSE 81
[2025-01-27] MEDS: METOPROLOL SUCCINATE EXT REL 12.5 MG TABCR PO (08:25)
[2025-01-27] MEDS: VENLAFAXINE HCL XR 75 MG CAP.ER.24H PO (08:26)
[2025-01-27] MEDS: FUROSEMIDE 40 MG TABLET PO (08:26)
[2025-01-27] MEDS: buPROPion HCL XL (24 HR) 150 MG TABCR PO (08:26)
[2025-01-27] MEDS: PANTOPRAZOLE 40 MG TABLET PO (08:26)
[2025-01-27] MEDS: SPIRONOLACTONE 50 MG TABLET 100 MG PO (08:26)
[2025-01-27] MEDS: ASPIRIN 81 MG ENTERIC TABLET PO (08:26)
[2025-01-27] MEDS: POTASSIUM CHLORIDE 20 MEQ ER TABLET 40 MEQ PO (11:15)
[2025-01-27 13:35] VITALS: BP 137/69; PULSE 84; RESP 16; TEMP 36.7; O2SAT 100
--- NOTE | 2025-01-27 14:18 | P.PNONC_ITS ---
Progress Note: A&P Assessment and Plan (1) Thrombocytopenia: Code(s): D69.6 - Thrombocytopenia, unspecified Status: Acute Assessment and Plan: Patient with platelet count of 80K at presentation on 01/26/25. This is in setting of acute transaminitis with questionable cholecystitis. CT scan and RUQ US done this admission show fatty liver disease. We don't have any CBC since 04/23/23 when platelets were 280K. There is mention of alcohol abuse as well. Etiology of thrombocytopenia could be liver disease, ITP and acute liver injury. Liver produces TPO which stimulates bone marrow for platelet production. In [place] liver injury and compromised liver function, TPO production is impaired leading to low production of platelet from bone marrow. Liver disease causes peripheral destruction of platelets as well. Supportive care only with platelet transfusion if platelet less than 20K to keep platelets above 20K in infectious setting. Today, platelets are 62K. Subjective Date/time seen: 01/27/25 14:18 Interval history: patient feels better with less leg wound pain Review of Systems Review of Systems Patient feels at his baseline. No RUQ pain. Some nausea intermittently. No fevers, chills, night sweats. No weight loss. No chest pain, dyspnea, cough or hemoptysis. NO hematochezia or melena. No hematuria. Rest of 12 point ROS is negative. Exam Narrative: General: NAD, obese Eyes: EOMI ENT: neck supple, + scleral icterus Cardiovascular: Regular rate and rhythm Respiratory: Clear to auscultation, respirations even and unlabored on RA Gastrointestinal: Soft, non tender Genitourinary: no suprapubic tenderness Musculoskeletal: moderate BLE edema. BLE in MELY wraps. Skin: warm, dry Neuro: Alert and oriented. Psych: Mood appropriate Objective Data Vital Signs Vital Signs: Vital Signs - 24 hr 01/26/25 20:00 01/26/25 20:48 01/27/25 05:03 Temperature 36.7 C 36.7 C Pulse Rate 78 56 L Respiratory Rate 17 18 Blood Pressure 134/75 118/80 Pulse Oximetry 100 100 100 Oxygen Delivery Room Air 01/27/25 08:24 01/27/25 08:25 01/27/25 08:25 Temperature Pulse Rate 81 81 Respiratory Rate Blood Pressure 122/78 Pulse Oximetry Oxygen Delivery Room Air 01/27/25 13:35 Temperature 36.7 C Pulse Rate 84 Respiratory Rate 16 Blood Pressure 137/69 Pulse Oximetry 100 Oxygen Delivery Intake/Output Intake/Output: Intake & Output 01/24/25 01/25/25 01/26/25 01/27/25 23:59 23:59 23:59 23:59 Intake Total 240 1360 980 Balance 240 1360 980 Meds/Results Medications: Active Medications Generic Name Dose Route Start Last Admin Trade Name Freq PRN Reason Stop Dose Admin Acetaminophen 650 mg 01/25/25 17:18 Acetaminophen 325 Mg Tablet PO Q4H PRN Mild Pain (1-3) or Fever Hydrocodone Bitart/Acetaminophen 1 tab 01/25/25 17:18 01/26/25 20:19 Hydrocodone/Acetaminophen (*Crx) 5-325 Mg Tablet PO 1 tab Q4H PRN Administration Moderate Pain (4-6) Allopurinol 400 mg 01/26/25 08:00 01/27/25 08:25 Allopurinol 100 Mg Tablet PO 400 mg DAILY@0800 TERESO Administration Aspirin 81 mg 01/26/25 09:00 01/27/25 08:26 Aspirin 81 Mg Enteric Tablet PO 81 mg DAILY TERESO Administration Bisacodyl 5 mg 01/25/25 17:18 Bisacodyl 5 Mg Tablet Ec PO DAILY PRN Constipation Bupropion HCl 150 mg 01/26/25 09:00 01/27/25 08:26 Bupropion Hcl Xl (24 Hr) 150 Mg Tabcr PO 150 mg QAM TERESO Administration Furosemide 40 mg 01/26/25 09:00 01/27/25 08:26 Furosemide 40 Mg Tablet PO 40 mg DAILY TERESO Administration Piperacillin Sod/Tazobactam 50 mls @ 100 mls/hr 01/26/25 00:15 01/27/25 11:16 Sod 3.375 gm/ Sodium Chloride IVPB 100 mls/hr Q6HR TERESO Administration Metoprolol Succinate 12.5 mg 01/26/25 09:00 01/27/25 08:25 Metoprolol Succinate Ext Rel 12.5 Mg Tabcr PO 12.5 mg QAM TERESO Administration Ondansetron HCl 4 mg 01/25/25 17:18 Ondansetron Inj 4 Mg/2 Ml Vial IV PUSH Q6H PRN Nausea And Vomiting Pantoprazole Sodium 40 mg 01/27/25 09:00 01/27/25 08:26 Pantoprazole 40 Mg Tablet PO 40 mg QAM TERESO Administration Perflutren Lipid Microsphere 0 ml 01/26/25 07:36 Perflutren Lipid Microspheres 1.5 Ml Vial Diluted To 10 Ml Total Volume IV PUSH 01/29/25 07:36 ONCE PRN adequate visualization Protocol Spironolactone 100 mg 01/26/25 09:00 01/27/25 08:26 Spironolactone 50 Mg Tablet PO 100 mg QAM TERESO Administration Venlafaxine HCl 75 mg 01/26/25 09:00 01/27/25 08:26 Venlafaxine Hcl Xr 75 Mg Cap.Er.24h PO 75 mg DAILY TERESO Administration Radiology Results: ITS Impressions Hand X-Ray 01/26/25 09:35 IMPRESSION: 1. Joint space narrowing in both hands as detailed above. Arterial/Peripheral Duplex 01/26/25 10:38 IMPRESSION: 1. Normal directional flow and Doppler waveforms in the hepatic artery, the main, left and right portal veins and the middle hepatic vein. No evidence of portal venous hypertension. The left and right hepatic veins were unable to be visualized but are patent and contrast opacified on CT from one day prior. Upper Quadrant Ultrasound 01/26/25 13:08 IMPRESSION: 1: Borderline gallbladder wall thickening. If concern for acute cholecystitis, consider a HIDA scan. 2. Liver is hyperechoic likely due to fatty infiltration and/or hepatocellular disease. 3. Limited study as above. Labs Labs: Laboratory Results - last 24 hr 01/27/25 05:22 WBC 3.0 L RBC 4.54 L Hgb 14.7 Hct 42.3 MCV 93.2 MCH 32.4 MCHC 34.8 RDW 16.3 H Plt Count 62 L MPV 11.6 H Immature Gran % (Auto) 0.3 Neut % (Auto) 51.1 Lymph % (Auto) 32.0 [place] % (Auto) 11.6 H Eos % (Auto) 4.0 Baso % (Auto) 1.0 Lymph # (Auto) 0.97 [place] # (Auto) 0.4 Eos # (Auto) 0.1 Baso # (Auto) 0.0 Abs Immat Gran (auto) 0.01 Absolute Neuts (auto) 1.6 Absolute Nucleated RBC 0.000 Band Neutrophils % Not Reportable Nucleated RBC % 0.0 Smudge Cells Present Platelet Estimate Decreased % Immature Plt Fraction 6.4 Anisocytosis 1+ Target Cells 1+ Schistocytes None seen Sodium 137 Potassium 3.0 L Chloride 98 Carbon Dioxide 34 H Anion Gap 5 BUN 7 L Creatinine 1.01 Estim Creat Clear Calc 113 Estimated GFR > 60 Glucose 89 Calcium 7.6 L Total Bilirubin 5.6 H AST 412 H ALT 175 H Alkaline Phosphatase 730 H Total Creatine Kinase 119 Total Protein 6.1 L Albumin 2.7 L
--- NOTE | 2025-01-27 15:19 | P.PNIM_ITS ---
Progress Note: A&P Assessment and Plan (1) Transaminitis: Code(s): R74.01 - Elevation of levels of liver transaminase levels Status: Acute Assessment and Plan: on admission, total bilirubin 5.5, direct bilirubin 2.3, AST 560, ALT 210, alk- phos 845. Downtrending. denied herbal supplement use or recent antibiotic use, daily ETOH use, 4 beers daily. Reports previous heavier use. CT initially concerning for acute cholecystitis, patient reporting daily nausea with intermittent dry heaving and intermittent umbilical pain for the past 2-3 weeks increasing concerns for GB etiology. Abdominal pain resolved today. * GI consulted (Dr. Mondragon): suspects multiple contributing factors including pre-existing chronic liver disease suspicious for cirrhosis. Likely due to alcohol abuse vs. hemochromatosis given elevated ferritin. Recommended to start Aldactone and furosemide. * Ordered genetic test for hemochromatosis, Hand x-ray to evaluate for typical hemochromatosis find words. Right upper quadrant ultrasound and Doppler sonogram of the liver ordered. * hold statin Hypertriglyceridemia * trend LFTs * GI recommends transjugular liver biopsy when cellulitis is resolved.likely at [facility] (2) Abdominal pain: Qualifiers: Abdominal location: periumbilical Qualified Code(s): R10.33 - Periumbilical pain Code(s): R10.9 - Unspecified abdominal pain Status: Acute Assessment and Plan: Resolving no further ABD pain reported CT abd/pelvis, 01/25: 1. Haziness to the fat surrounding the normal-appearing gallbladder which raises concern for acute cholecystitis. Correlate for Ochoa sign and could consider further evaluation with either right upper quadrant ultrasound or HIDA scan. 2. Prominent diffuse hepatic steatosis. 3. Very small amount of nonspecific ascites in the deep pelvis. 4. Interval resolution of a now chronic residual 10 x 10 x 1.5 cm left rectus sheath seroma. * continue PPI * due to concern for acute choley on CT will start abx, Zosyn. However today, patient denies upper abdominal pain. Afebrile, no leukocytosis. Doubt GB pathology. * checked US of the RUQ (3) Cellulitis of lower limb: Qualifiers: Laterality: right Qualified Code(s): L03.115 - Cellulitis of right lower limb Code(s): L03.119 - Cellulitis of unspecified part of limb Status: Acute Assessment and Plan: Patient had worsening BLE, has been ongoing for some time but the erythema and blistering has worsened. Has been unable to remain compliant with compression stockings as his no longer fit. Suspected cellulitis of the RLE, however more in favor of stasis dermatitis. BNP 106, check echo, no significant findings * started on Zosyn, concurrent concern for acute cholecystitis * wound RN consulted * continue outpatient mupirocin * continue Lasix and Aldactone, add Karthik wraps for compression * Elevate extremities * Daily weights * Strict I&O's (4) Benign hypertension: Onset Date: 04/11/11 Code(s): I10 - Essential (primary) hypertension Status: Chronic Assessment and Plan: * continue home medications: Metoprolol, Lasix * monitor per unit protocol (5) Obstructive sleep apnea: Code(s): G47.33 - Obstructive sleep apnea (adult) (pediatric) Status: Acute Assessment and Plan: * continue home CPAP (6) Alcohol use: Code(s): F10.90 - Alcohol use, unspecified, uncomplicated Status: Acute Assessment and Plan: drinks 4 beers daily. Reports prior history of heavier alcohol abuse * no history of withdrawal * Patient counseled on the importance of cessation (7) Thrombocytopenia: Code(s): D69.6 - Thrombocytopenia, unspecified Status: Acute Assessment and Plan: Plts 72, normal in 01/2025 likely secondary to his new cirrhosis * consult hematology for any further recommendations agrees likely due to cirrhosis * transfuse if platelets drop below 20,000 * trend * monitor for bleeding Plan Code Status: Full code DVT: SCD Disposition: Continue admission to the medical unit and diuresis and treatment for cellulitis will need o/p liver biopsy. Plan to discharge to home when medically stable. Time Spent With Patient Time with patient: 25 - 35 minutes Subjective Date/time seen: 01/27/25 15:19 Interval history: 01/27/2025: Assumed Care Patient evaluated this morning acute distress. Patient denied as not chest pain, shortness a breath, abdominal pain, nausea, and vomiting. Patient reports urinary output stating he has voided 36 oz of urine today. Patient reports a reduction in his lower extremity edema. Review of Systems Review of Systems: All systems reviewed & are unremarkable except as noted in HPI and below Constitutional: Constitutional: Reports no additional constitutional complaints Eyes: Eyes: Reports no additional eye complaints ENT: Reports system reviewed and no additional complaints, except as documented Cardiovascular: Cardiovascular: Reports leg edema Respiratory: Respiratory: Reports no additional respiratory complaints Gastrointestinal: Gastrointestinal: Reports no additional gastrointestinal complaints Genitourinary: Genitourinary: Reports no additional male genitourinary complaints Musculoskeletal: Musculoskeletal: Reports no additional musculoskeletal complaints Integumentary/Breasts: Skin/Breast: Reports system reviewed and no additional complaints, except as docu Neurologic: Reports system reviewed and no additional complaints, except as documented Psychiatric: Psychiatric: Reports no additional psychiatric complaints Exam Const: General: comfortable and no acute distress Other: , male, nontoxic appearance HENMT: Face/Nose/Sinus: Normal nares present Mouth: Yes moist mucous membranes Eyes: General: appearance normal, both eyes and all related structures Sclera: scleral abnormality (jaundice) bilateral Pupils: Equal, round and reactive pupils present EOM: EOMs intact bilaterally Neck: Neck: supple and no JVD Resp: Effort & Inspection: normal respiratory effort Auscultation: clear to auscultation bilaterally Cardio: Rate: regular rate Rhythm: regular rhythm GI: GI Palp: Yes Soft to palpation Auscultation: normal bowel sounds Skin: General skin exam: jaundice Neuro: Cranial nerves: Yes Equal, round and reactive pupils present Speech: normal speech Motor exam (neuro): 5/5 motor strength present throughout Sensory Exam: normal sensation Extrem: General: edema bilateral Other: 2+ pitting edema to BLE. Psych: Mental Status: mental status grossly normal Affect: normal affect Objective Data Vital Signs Vital Signs: Vital Signs - 24 hr 01/26/25 20:00 01/26/25 20:48 01/27/25 05:03 Temperature 98.1 F 98.0 F Pulse Rate 78 56 L Respiratory Rate 17 18 Blood Pressure 134/75 118/80 Pulse Oximetry 100 100 100 Oxygen Delivery Room Air 01/27/25 08:24 01/27/25 08:25 01/27/25 08:25 Temperature Pulse Rate 81 81 Respiratory Rate Blood Pressure 122/78 Pulse Oximetry Oxygen Delivery Room Air 01/27/25 13:35 Temperature 98.1 F Pulse Rate 84 Respiratory Rate 16 Blood Pressure 137/69 Pulse Oximetry 100 Oxygen Delivery Intake/Output Intake/Output: Intake & Output 01/24/25 01/25/25 01/26/25 01/27/25 23:59 23:59 23:59 23:59 Intake Total 240 1360 980 Balance 240 1360 980 Meds/Results Medications: Active Medications Generic Name Dose Route Start Last Admin Trade Name Freq PRN Reason Stop Dose Admin Acetaminophen 650 mg 01/25/25 17:18 Acetaminophen 325 Mg Tablet PO Q4H PRN Mild Pain (1-3) or Fever Hydrocodone Bitart/Acetaminophen 1 tab 01/25/25 17:18 01/26/25 20:19 Hydrocodone/Acetaminophen (*Crx) 5-325 Mg Tablet PO 1 tab Q4H PRN Administration Moderate Pain (4-6) Allopurinol 400 mg 01/26/25 08:00 01/27/25 08:25 Allopurinol 100 Mg Tablet PO 400 mg DAILY@0800 TERESO Administration Aspirin 81 mg 01/26/25 09:00 01/27/25 08:26 Aspirin 81 Mg Enteric Tablet PO 81 mg DAILY TERESO Administration Bisacodyl 5 mg 01/25/25 17:18 Bisacodyl 5 Mg Tablet Ec PO DAILY PRN Constipation Bupropion HCl 150 mg 01/26/25 09:00 01/27/25 08:26 Bupropion Hcl Xl (24 Hr) 150 Mg Tabcr PO 150 mg QAM TERESO Administration Furosemide 40 mg 01/26/25 09:00 01/27/25 08:26 Furosemide 40 Mg Tablet PO 40 mg DAILY TERESO Administration Piperacillin Sod/Tazobactam 50 mls @ 100 mls/hr 01/26/25 00:15 01/27/25 11:16 Sod 3.375 gm/ Sodium Chloride IVPB 100 mls/hr Q6HR TERESO Administration Metoprolol Succinate 12.5 mg 01/26/25 09:00 01/27/25 08:25 Metoprolol Succinate Ext Rel 12.5 Mg Tabcr PO 12.5 mg QAM TERESO Administration Ondansetron HCl 4 mg 01/25/25 17:18 Ondansetron Inj 4 Mg/2 Ml Vial IV PUSH Q6H PRN Nausea And Vomiting Pantoprazole Sodium 40 mg 01/27/25 09:00 01/27/25 08:26 Pantoprazole 40 Mg Tablet PO 40 mg QAM TERESO Administration Perflutren Lipid Microsphere 0 ml 01/26/25 07:36 Perflutren Lipid Microspheres 1.5 Ml Vial Diluted To 10 Ml Total Volume IV PUSH 01/29/25 07:36 ONCE PRN adequate visualization Protocol Spironolactone 100 mg 01/26/25 09:00 01/27/25 08:26 Spironolactone 50 Mg Tablet PO 100 mg QAM TERESO Administration Venlafaxine HCl 75 mg 01/26/25 09:00 01/27/25 08:26 Venlafaxine Hcl Xr 75 Mg Cap.Er.24h PO 75 mg DAILY TERESO Administration Radiology Results: ITS Impressions Hand X-Ray 01/26/25 09:35 IMPRESSION: 1. Joint space narrowing in both hands as detailed above. Arterial/Peripheral Duplex 01/26/25 10:38 IMPRESSION: 1. Normal directional flow and Doppler waveforms in the hepatic artery, the main, left and right portal veins and the middle hepatic vein. No evidence of portal venous hypertension. The left and right hepatic veins were unable to be visualized but are patent and contrast opacified on CT from one day prior. Upper Quadrant Ultrasound 01/26/25 13:08 IMPRESSION: 1: Borderline gallbladder wall thickening. If concern for acute cholecystitis, consider a HIDA scan. 2. Liver is hyperechoic likely due to fatty infiltration and/or hepatocellular disease. 3. Limited study as above. Labs Labs: Laboratory Results - last 24 hr 01/25/25 01/27/25 18:08 05:22 WBC 3.0 L RBC 4.54 L Hgb 14.7 Hct 42.3 MCV 93.2 MCH 32.4 MCHC 34.8 RDW 16.3 H Plt Count 62 L MPV 11.6 H Immature Gran % (Auto) 0.3 Neut % (Auto) 51.1 Lymph % (Auto) 32.0 [place] % (Auto) 11.6 H Eos % (Auto) 4.0 Baso % (Auto) 1.0 Lymph # (Auto) 0.97 [place] # (Auto) 0.4 Eos # (Auto) 0.1 Baso # (Auto) 0.0 Abs Immat Gran (auto) 0.01 Absolute Neuts (auto) 1.6 Absolute Nucleated RBC 0.000 Band Neutrophils % Not Reportable Nucleated RBC % 0.0 Smudge Cells Present Platelet Estimate Decreased % Immature Plt Fraction 6.4 Anisocytosis 1+ Target Cells 1+ Schistocytes None seen Sodium 137 Potassium 3.0 L Chloride 98 Carbon Dioxide 34 H Anion Gap 5 BUN 7 L Creatinine 1.01 Estim Creat Clear Calc 113 Estimated GFR > 60 Glucose 89 Calcium 7.6 L Total Bilirubin 5.6 H AST 412 H ALT 175 H Alkaline Phosphatase 730 H Total Creatine Kinase 119 Total Protein 6.1 L Albumin 2.7 L Actin IgG Antibody 8 Quality VTE Prophylaxis VTE prophylaxis: mechanical ordered -Patient's previous records reviewed on admission -ER notes reviewed in detail on admission -discussed all findings and current treatment plan with patient/Family/POA -Consultations reviewed for recommendations -Patient's disposition for safe discharge discussed with case briefer Dictation performed by [employer] direct speech recognition software, therefore wet pan mixer variants and typographical errors may occur. Hospitalist MIPS Advance Care Plan I have confirmed that the patient's Advanced Care Plan is present, code status is documented, or surrogate decision maker is listed in patient medical record.: Yes Medication Reconciliation I have utilized all available resources to obtain, update and review the patients current medications (includes all prescriptions, OTC, herbals, cannabis, and nutritional supplements).: Yes The patient is not eligible for med reconciliation; the patient is in a emergent medical situation where delaying treatment would jeopardize the patients health.: No
--- NOTE | 2025-01-27 19:05 | P.PNONC_ITS ---
Progress Note: A&P Assessment and Plan (1) Thrombocytopenia: Code(s): D69.6 - Thrombocytopenia, unspecified Status: Acute Assessment and Plan: Patient with platelet count of 80K at presentation on 01/26/25. This is in setting of acute transaminitis with questionable cholecystitis. CT scan and RUQ US done this admission show fatty liver disease. We don't have any CBC since 04/23/23 when platelets were 280K. There is mention of alcohol abuse as well. Etiology of thrombocytopenia could be liver disease, ITP and acute liver injury. Liver produces TPO which stimulates bone marrow for platelet production. In [place] liver injury and compromised liver function, TPO production is impaired leading to low production of platelet from bone marrow. Liver disease causes peripheral destruction of platelets as well. Supportive care only with platelet transfusion if platelet less than 20K to keep platelets above 20K in infectious setting. Today, platelets are 62K. Patient will need outpatient follow up with Hematology for continued surveillance of thrombocytopenia. Subjective Date/time seen: 01/27/25 19:05 Interval history: No overnight events. States that leg wound feels better Review of Systems Review of Systems Patient feels at his baseline. No RUQ pain. Some nausea intermittently. No fevers, chills, night sweats. No weight loss. No chest pain, dyspnea, cough or hemoptysis. NO hematochezia or melena. No hematuria. Rest of 12 point ROS is negative. Exam Narrative: General: NAD, obese Eyes: EOMI ENT: neck supple, + scleral icterus Cardiovascular: Regular rate and rhythm Respiratory: Clear to auscultation, respirations even and unlabored on RA Gastrointestinal: Soft, non tender Genitourinary: no suprapubic tenderness Musculoskeletal: moderate BLE edema. BLE in MELY wraps. Skin: warm, dry Neuro: Alert and oriented. Psych: Mood appropriate Objective Data Vital Signs Vital Signs: Vital Signs - 24 hr 01/26/25 20:00 01/26/25 20:48 01/27/25 05:03 Temperature 36.7 C 36.7 C Pulse Rate 78 56 L Respiratory Rate 17 18 Blood Pressure 134/75 118/80 Pulse Oximetry 100 100 100 Oxygen Delivery Room Air 01/27/25 08:24 01/27/25 08:25 01/27/25 08:25 Temperature Pulse Rate 81 81 Respiratory Rate Blood Pressure 122/78 Pulse Oximetry Oxygen Delivery Room Air 01/27/25 13:35 Temperature 36.7 C Pulse Rate 84 Respiratory Rate 16 Blood Pressure 137/69 Pulse Oximetry 100 Oxygen Delivery Intake/Output Intake/Output: Intake & Output 01/24/25 01/25/25 01/26/25 01/27/25 23:59 23:59 23:59 23:59 Intake Total 240 1360 1870 Output Total 1450 Balance 240 1360 420 Meds/Results Medications: Active Medications Generic Name Dose Route Start Last Admin Trade Name Freq PRN Reason Stop Dose Admin Acetaminophen 650 mg 01/25/25 17:18 Acetaminophen 325 Mg Tablet PO Q4H PRN Mild Pain (1-3) or Fever Hydrocodone Bitart/Acetaminophen 1 tab 01/25/25 17:18 01/26/25 20:19 Hydrocodone/Acetaminophen (*Crx) 5-325 Mg Tablet PO 1 tab Q4H PRN Administration Moderate Pain (4-6) Allopurinol 400 mg 01/26/25 08:00 01/27/25 08:25 Allopurinol 100 Mg Tablet PO 400 mg DAILY@0800 TERESO Administration Aspirin 81 mg 01/26/25 09:00 01/27/25 08:26 Aspirin 81 Mg Enteric Tablet PO 81 mg DAILY TERESO Administration Bisacodyl 5 mg 01/25/25 17:18 Bisacodyl 5 Mg Tablet Ec PO DAILY PRN Constipation Bupropion HCl 150 mg 01/26/25 09:00 01/27/25 08:26 Bupropion Hcl Xl (24 Hr) 150 Mg Tabcr PO 150 mg QAM TERESO Administration Furosemide 40 mg 01/26/25 09:00 01/27/25 08:26 Furosemide 40 Mg Tablet PO 40 mg DAILY TERESO Administration Piperacillin Sod/Tazobactam 50 mls @ 100 mls/hr 01/26/25 00:15 01/27/25 18:10 Sod 3.375 gm/ Sodium Chloride IVPB Infused Q6HR TERESO Infusion Metoprolol Succinate 12.5 mg 01/26/25 09:00 01/27/25 08:25 Metoprolol Succinate Ext Rel 12.5 Mg Tabcr PO 12.5 mg QAM TERESO Administration Ondansetron HCl 4 mg 01/25/25 17:18 Ondansetron Inj 4 Mg/2 Ml Vial IV PUSH Q6H PRN Nausea And Vomiting Pantoprazole Sodium 40 mg 01/27/25 09:00 01/27/25 08:26 Pantoprazole 40 Mg Tablet PO 40 mg QAM TERESO Administration Perflutren Lipid Microsphere 0 ml 01/26/25 07:36 Perflutren Lipid Microspheres 1.5 Ml Vial Diluted To 10 Ml Total Volume IV PUSH 01/29/25 07:36 ONCE PRN adequate visualization Protocol Spironolactone 100 mg 01/26/25 09:00 01/27/25 08:26 Spironolactone 50 Mg Tablet PO 100 mg QAM TERESO Administration Venlafaxine HCl 75 mg 01/26/25 09:00 01/27/25 08:26 Venlafaxine Hcl Xr 75 Mg Cap.Er.24h PO 75 mg DAILY TERESO Administration Radiology Results: ITS Impressions Hand X-Ray 01/26/25 09:35 IMPRESSION: 1. Joint space narrowing in both hands as detailed above. Arterial/Peripheral Duplex 01/26/25 10:38 IMPRESSION: 1. Normal directional flow and Doppler waveforms in the hepatic artery, the main, left and right portal veins and the middle hepatic vein. No evidence of portal venous hypertension. The left and right hepatic veins were unable to be visualized but are patent and contrast opacified on CT from one day prior. Upper Quadrant Ultrasound 01/26/25 13:08 IMPRESSION: 1: Borderline gallbladder wall thickening. If concern for acute cholecystitis, consider a HIDA scan. 2. Liver is hyperechoic likely due to fatty infiltration and/or hepatocellular disease. 3. Limited study as above. Labs Labs: Laboratory Results - last 24 hr 01/25/25 01/27/25 18:08 05:22 WBC 3.0 L RBC 4.54 L Hgb 14.7 Hct 42.3 MCV 93.2 MCH 32.4 MCHC 34.8 RDW 16.3 H Plt Count 62 L MPV 11.6 H Immature Gran % (Auto) 0.3 Neut % (Auto) 51.1 Lymph % (Auto) 32.0 [place] % (Auto) 11.6 H Eos % (Auto) 4.0 Baso % (Auto) 1.0 Lymph # (Auto) 0.97 [place] # (Auto) 0.4 Eos # (Auto) 0.1 Baso # (Auto) 0.0 Abs Immat Gran (auto) 0.01 Absolute Neuts (auto) 1.6 Absolute Nucleated RBC 0.000 Band Neutrophils % Not Reportable Nucleated RBC % 0.0 Smudge Cells Present Platelet Estimate Decreased % Immature Plt Fraction 6.4 Anisocytosis 1+ Target Cells 1+ Schistocytes None seen Sodium 137 Potassium 3.0 L Chloride 98 Carbon Dioxide 34 H Anion Gap 5 BUN 7 L Creatinine 1.01 Estim Creat Clear Calc 113 Estimated GFR > 60 Glucose 89 Calcium 7.6 L Total Bilirubin 5.6 H AST 412 H ALT 175 H Alkaline Phosphatase 730 H Total Creatine Kinase 119 Total Protein 6.1 L Albumin 2.7 L Actin IgG Antibody 8
[2025-01-27 19:50] VITALS: BP 136/85; PULSE 81; RESP 18; TEMP 37.2; O2SAT 100
[2025-01-27 23:14] VITALS: PULSE 87; RESP 20; O2SAT 96
[2025-01-28 02:36] VITALS: PULSE 80; RESP 17; O2SAT 96
[2025-01-28 04:44] VITALS: BP 105/61; PULSE 61; RESP 17; TEMP 36.9; O2SAT 98
[2025-01-28 04:53] LABS: Hematocrit 40.1 % (42.0-52.0); Hemoglobin 13.4 g/dL (14.0-18.0); Immature Granulocyte Percent A 0.3 % (0-0.5); Immature Platelet Fraction Pct 7.7 % (0.9-11.2); Lymphocytes Absolute Auto 1.04 K/mm3 (0.9-3.2); Mean Corpuscular HGB Conc 33.4 g/dl (32-36); Mean Corpuscular Hemoglobin 31.8 pg (26-34); Mean Corpuscular Volume 95.2 fl (80-100); Nucleated Red Blood Cells Absolute Auto 0.000 K/mm3 (0.0-0.012); Nucleated Red Blood Cells Perc 0.0 % (0.0-0.2); Platelet Count Result 55 k/mm3 (150-375); Red Blood Count 4.21 M/mm3 (4.6-6.20); White Blood Count 3.3 K/mm3 (4.5-10.0)
[2025-01-28 05:08] LABS: Alanine Aminotransferase 167 U/L (6-50); Albumin Level 2.7 g/dL (3.5-5.1); Alkaline Phosphatase 623 U/L (38-126); Anion Gap 5 mmol/L (4-12); Aspartate Amino Transferase 365 U/L (17-59); Bilirubin,Total 5.1 mg/dL (0.2-1.3); Blood Urea Nitrogen 6 mg/dL (9-20); Calcium 7.6 mg/dL (8.4-10.2); Carbon Dioxide 36 mmol/L (22-30); Chloride 95 mmol/L (98-107); Estimated CRCL calculation 105 ml/min; Estimated Glomerular Filt Rate > 60; Glucose 88 mg/dL (65-110); Potassium 3.8 mmol/L (3.4-5.0); Sodium 136 mmol/L (137-145); Total Protein 5.8 g/dL (6.3-8.2)
[2025-01-28 05:31] LABS: Anisocytosis 1+; Schistocytes None Seen; Stomatocytes 1+; Target Cells 1+
[2025-01-28] MEDS: PIPERACILLIN/TAZOBACTAM SOD 3.375 GM in SODIUM CHLORIDE 0.9% IV 50 ML 100 ML IVPB (05:40)
[2025-01-28 08:52] VITALS: BP 107/69; PULSE 67
[2025-01-28] MEDS: FUROSEMIDE 40 MG TABLET PO (08:54)
[2025-01-28] MEDS: PANTOPRAZOLE 40 MG TABLET PO (08:54)
[2025-01-28 08:55] VITALS: PULSE 67
[2025-01-28] MEDS: ASPIRIN 81 MG ENTERIC TABLET PO (08:55)
[2025-01-28] MEDS: METOPROLOL SUCCINATE EXT REL 12.5 MG TABCR PO (08:55)
[2025-01-28] MEDS: buPROPion HCL XL (24 HR) 150 MG TABCR PO (08:55)
[2025-01-28] MEDS: VENLAFAXINE HCL XR 75 MG CAP.ER.24H PO (08:56)
[2025-01-28] MEDS: SPIRONOLACTONE 50 MG TABLET 100 MG PO (08:56)
[2025-01-28] MEDS: CEPHALEXIN 500 MG CAPSULE PO (12:07)
--- NOTE | 2025-01-28 12:59 | WPDGIPROGNO ---
Progress Note: A&P Assessment and Plan (1) Thrombocytopenia: Code(s): D69.6 - Thrombocytopenia, unspecified Status: Acute (2) Cellulitis of right leg: Code(s): L03.115 - Cellulitis of right lower limb Status: Acute Assessment and Plan: The patient is progressing well. There's a notable improvement in the erythema and leg edema. The hospitalist has been consulted, and the patient is considered stable for discharge. The patient will be discharged with a prescription for cephalexin 500 mg every 6 hours for an additional three days. He should continue his current diuretic regimen of spironolactone 100 mg and furosemide 40 mg, both once daily. Regarding the underlying liver disease, we are awaiting the final genetic test results to rule out hemochromatosis. We are also coordinating a transjugular liver biopsy at [facility]. The patient should be followed up in our clinic in one month. Before discharge, it is important that the patient receives a specific low-sodium diet from the dietitian. Subjective Date/time seen: 01/28/25 12:59 Objective Data Vital Signs Vital Signs: Vital Signs - 24 hr 01/27/25 13:35 01/27/25 19:50 01/27/25 23:14 Temperature 98.1 F 98.9 F Pulse Rate 84 81 87 Respiratory Rate 16 18 20 Blood Pressure 137/69 136/85 Pulse Oximetry 100 100 96 Oxygen Delivery Autopap 01/28/25 02:36 01/28/25 04:44 01/28/25 08:50 Temperature 98.4 F Pulse Rate 80 61 Respiratory Rate 17 17 Blood Pressure 105/61 Pulse Oximetry 96 98 Oxygen Delivery Autopap Room Air 01/28/25 08:52 01/28/25 08:55 Temperature Pulse Rate 67 67 Respiratory Rate Blood Pressure 107/69 Pulse Oximetry Oxygen Delivery Intake/Output Intake/Output: Intake & Output 01/25/25 01/26/25 01/27/25 01/28/25 23:59 23:59 23:59 23:59 Intake Total 240 1360 2420 1680 Output Total 1450 1556 Balance 240 1360 970 124 Meds/Results Medications: Active Medications Generic Name Dose Route Start Last Admin Trade Name Freq PRN Reason Stop Dose Admin Acetaminophen 650 mg 01/25/25 17:18 Acetaminophen 325 Mg Tablet PO Q4H PRN Mild Pain (1-3) or Fever Hydrocodone Bitart/Acetaminophen 1 tab 01/25/25 17:18 01/26/25 20:19 Hydrocodone/Acetaminophen (*Crx) 5-325 Mg Tablet PO 1 tab Q4H PRN Administration Moderate Pain (4-6) Allopurinol 400 mg 01/26/25 08:00 01/28/25 08:54 Allopurinol 100 Mg Tablet PO 400 mg DAILY@0800 TERESO Administration Aspirin 81 mg 01/26/25 09:00 01/28/25 08:55 Aspirin 81 Mg Enteric Tablet PO 81 mg DAILY TERESO Administration Bisacodyl 5 mg 01/25/25 17:18 Bisacodyl 5 Mg Tablet Ec PO DAILY PRN Constipation Bupropion HCl 150 mg 01/26/25 09:00 01/28/25 08:55 Bupropion Hcl Xl (24 Hr) 150 Mg Tabcr PO 150 mg QAM TERESO Administration Cephalexin HCl 500 mg 01/28/25 12:00 01/28/25 12:07 Cephalexin 500 Mg Capsule PO 02/08/25 18:01 500 mg Q6HR TERESO Administration Furosemide 40 mg 01/26/25 09:00 01/28/25 08:54 Furosemide 40 Mg Tablet PO 40 mg DAILY TERESO Administration Metoprolol Succinate 12.5 mg 01/26/25 09:00 01/28/25 08:55 Metoprolol Succinate Ext Rel 12.5 Mg Tabcr PO 12.5 mg QAM TERESO Administration Ondansetron HCl 4 mg 01/25/25 17:18 Ondansetron Inj 4 Mg/2 Ml Vial IV PUSH Q6H PRN Nausea And Vomiting Pantoprazole Sodium 40 mg 01/27/25 09:00 01/28/25 08:54 Pantoprazole 40 Mg Tablet PO 40 mg QAM TERESO Administration Perflutren Lipid Microsphere 0 ml 01/26/25 07:36 Perflutren Lipid Microspheres 1.5 Ml Vial Diluted To 10 Ml Total Volume IV PUSH 01/29/25 07:36 ONCE PRN adequate visualization Protocol Spironolactone 100 mg 01/26/25 09:00 01/28/25 08:56 Spironolactone 50 Mg Tablet PO 100 mg QAM TERESO Administration Venlafaxine HCl 75 mg 01/26/25 09:00 01/28/25 08:56 Venlafaxine Hcl Xr 75 Mg Cap.Er.24h PO 75 mg DAILY TERESO Administration Radiology Results: ITS Impressions Hand X-Ray 01/26/25 09:35 IMPRESSION: 1. Joint space narrowing in both hands as detailed above. Arterial/Peripheral Duplex 01/26/25 10:38 IMPRESSION: 1. Normal directional flow and Doppler waveforms in the hepatic artery, the main, left and right portal veins and the middle hepatic vein. No evidence of portal venous hypertension. The left and right hepatic veins were unable to be visualized but are patent and contrast opacified on CT from one day prior. Upper Quadrant Ultrasound 01/26/25 13:08 IMPRESSION: 1: Borderline gallbladder wall thickening. If concern for acute cholecystitis, consider a HIDA scan. 2. Liver is hyperechoic likely due to fatty infiltration and/or hepatocellular disease. 3. Limited study as above. Labs Labs: Laboratory Results - last 24 hr 01/25/25 01/28/25 18:08 04:27 WBC 3.3 L RBC 4.21 L Hgb 13.4 L Hct 40.1 L MCV 95.2 MCH 31.8 MCHC 33.4 RDW 16.6 H Plt Count 55 L MPV 11.9 H Immature Gran % (Auto) 0.3 Neut % (Auto) 46.9 Lymph % (Auto) 31.9 [place] % (Auto) 16.3 H Eos % (Auto) 3.4 Baso % (Auto) 1.2 Lymph # (Auto) 1.04 [place] # (Auto) 0.5 Eos # (Auto) 0.1 Baso # (Auto) 0.0 Abs Immat Gran (auto) 0.01 Absolute Neuts (auto) 1.5 Absolute Nucleated RBC 0.000 Band Neutrophils % Not Reportable Nucleated RBC % 0.0 Platelet Estimate Decreased % Immature Plt Fraction 7.7 Anisocytosis 1+ Target Cells 1+ Stomatocytes 1+ Schistocytes None seen Sodium 136 L Potassium 3.8 Chloride 95 L Carbon Dioxide 36 H Anion Gap 5 BUN 6 L Creatinine 1.09 Estim Creat Clear Calc 105 Estimated GFR > 60 Glucose 88 Calcium 7.6 L Total Bilirubin 5.1 H AST 365 H ALT 167 H Alkaline Phosphatase 623 H Total Protein 5.8 L Albumin 2.7 L Actin IgG Antibody 8
[2025-01-28 14:00] VITALS: BP 120/76; PULSE 89; RESP 18; TEMP 36.9; O2SAT 98
--- NOTE | 2025-01-28 14:56 | P.DS_ITS ---
DS: Admitting Diagnosis Discharge Date 01/28/2025 Admitting Diagnosis Transaminitis/liver disease/thrombocytopenia/cellulitis DS: Discharge Diagnosis Discharge Diagnosis (1) Transaminitis: Code(s): R74.01 - Elevation of levels of liver transaminase levels Status: Acute (2) Abdominal pain: Qualifiers: Abdominal location: periumbilical Qualified Code(s): R10.33 - Periumbilical pain Code(s): R10.9 - Unspecified abdominal pain Status: Acute (3) Cellulitis of lower limb: Qualifiers: Laterality: right Qualified Code(s): L03.115 - Cellulitis of right lower limb Code(s): L03.119 - Cellulitis of unspecified part of limb Status: Acute (4) Benign hypertension: Onset Date: 04/11/11 Code(s): I10 - Essential (primary) hypertension Status: Chronic (5) Obstructive sleep apnea: Code(s): G47.33 - Obstructive sleep apnea (adult) (pediatric) Status: Acute (6) Alcohol use: Code(s): F10.90 - Alcohol use, unspecified, uncomplicated Status: Acute (7) Thrombocytopenia: Code(s): D69.6 - Thrombocytopenia, unspecified Status: Acute DS: Summary Hospital Course Reason for hospitalization: Transaminitis/liver disease/thrombocytopenia/cellulitis Hospital Course: Admission: Patient was a 54 y/o M with PMH of hyperlipidemia, osteoporosis, DAWSON, depression, gout, hypertension presents here from his PCP office for further evaluation of abnormal lab work. The patient presents here from home on 01/25 for further evaluation of abnormal lab work. Patient saw his PCP today for further evaluation of ongoing bilateral lower extremity swelling and script refills. He reported at this visit that it had started a few months ago and has since developed weeping and open sores (particularly to his right lower extremity). Patient has previously been told to wear compression stockings, however he has been non compliant as he does not have the appropriate size. Patient also is on a daily diuretic for which he reports compliance, increased at this visit. Additionally he had reported daily nausea and intermittent dry heaving that is accompanied by intermittent indigestion/heartburn, that has been ongoing for the past 2-3 weeks. He reports accompanying belly ache. He describes it as an ache, near his umbilicus, and intermittent. Pain is not necessarily precipitated by eating, appears to occur at random. He denies accompanying diarrhea. He has not been on a daily acid reducing medication, was prescribed one today at his PCP visit. Patient endorses daily alcohol use - 4 beers daily. He denies flu-like symptoms or tremors with cessation. He denies any herbal supplement use or recent antibiotic use. ED workup showed: WBC 4.2, no anemia, no significant electrolyte derangements, creatinine 1.09 and GFR >60, total bilirubin 4.9, AST 528, ALT 204, alk-phos 784, CRP 4.1, BNP 106, and UA showed no indicators of infection. CT of the abdomen/pelvis showed haziness of the fat surrounding the normal appearing gallbladder which nonetheless reasons concerns for acute cholecystitis, prominent diffuse hepatic steatosis, a very small amount of nonspecific ascites in the deep pelvis, interval resolution of the now chronic residual 10 x 10 x 1.5 cm left rectus sheath seroma. Hospital course:\ Patient was admitted to the medical unit with a consult to GI. He was started on ABX coverage for cellulitis of LE and we continued to trend is liver function. Based on the patient's lab results and clinical presentation, his significantly elevated transaminases appear to be a consequence of multiple contributing factors. The patient had exhibits signs of a pre-existing chronic liver disease, suspicious for cirrhosis, evidenced by his low platelet count, slightly prolonged INR, low albumin, and small amount of ascites noted on his abdominal CT. The most likely causes for this chronic condition are his long- term alcohol use and a possible underlying iron overload state. Due to patient alcohol consumption and obesity are known to cause elevated liver enzymes but certainly not this degree. However, his iron saturation of 82% raised the strong suspicion for hereditary hemochromatosis which Genetic test for hereditary hemochromatosis order and pending per GI recommendations Patient was initiated on diuretic regimen with spironolatone and furosemide orally. Finally, the recent use of the NSAID celecoxib may have been the precipitating factor that led to the acute decompensation of his already chronic liver disease which were discontinued. Patient symptoms resolved and he reported no further N/V or ABD pain was toelrating all oral intake. Patient was informed and it was set up outpatient for him to follow up with GI in 1 month and that he would likely need a transjugular liver biopsy due to his PLT levels for confirmation. Patient seen and assesed on day of discharge in no acute distress. He was discharged to home with oral ABX for cellulitis and new diuretic medications until follow-up advised to avoid alcohol. Status at Discharge Functional status at discharge: independent ambulation Time Spent with Patient Time attestation: Total time spent providing and/or coordinating discharge services: Time spent: Greater than 30 minutes Exam Const: General: comfortable and no acute distress Other: , male, nontoxic appearance HENMT: Face/Nose/Sinus: Normal nares present Mouth: Yes moist mucous membranes Eyes: General: appearance normal, both eyes and all related structures Sclera: scleral abnormality (jaundice) bilateral Pupils: Equal, round and r eactive pupils present EOM: EOMs intact bilaterally Neck: Neck: supple and no JVD Resp: Effort & Inspection: normal respiratory effort Auscultation: clear to auscultation bilaterally Cardio: Rate: regular rate Rhythm: regular rhythm GI: Auscultation: normal bowel sounds Skin: General skin exam: jaundice Neuro: Cranial nerves: Yes Equal, round and reactive pupils present Speech: normal speech Motor exam (neuro): 5/5 motor strength present throughout Sensory Exam: normal sensation Extrem: General: edema bilateral Other: 2+ pitting edema to BLE. Psych: Mental Status: mental status grossly normal Affect: normal affect DS: Data Data Completed and Pending Labs on day of discharge: Labs from last 24 hours 01/28/25 01/25/25 04:27 18:08 WBC 3.3 L RBC 4.21 L Hgb 13.4 L Hct 40.1 L MCV 95.2 MCH 31.8 MCHC 33.4 RDW 16.6 H Plt Count 55 L MPV 11.9 H Immature Gran % (Auto) 0.3 Neut % (Auto) 46.9 Lymph % (Auto) 31.9 Hoke % (Auto) 16.3 H Eos % (Auto) 3.4 Baso % (Auto) 1.2 Lymph # (Auto) 1.04 Hoke # (Auto) 0.5 Eos # (Auto) 0.1 Baso # (Auto) 0.0 Abs Immat Gran (auto) 0.01 Absolute Neuts (auto) 1.5 Absolute Nucleated RBC 0.000 Band Neutrophils % Not Reportable Nucleated RBC % 0.0 Platelet Estimate Decreased % Immature Plt Fraction 7.7 Anisocytosis 1+ Target Cells 1+ Stomatocytes 1+ Schistocytes None seen Sodium 136 L Potassium 3.8 Chloride 95 L Carbon Dioxide 36 H Anion Gap 5 BUN 6 L Creatinine 1.09 Estim Creat Clear Calc 105 Estimated GFR > 60 Glucose 88 Calcium 7.6 L Total Bilirubin 5.1 H AST 365 H ALT 167 H Alkaline Phosphatase 623 H Total Protein 5.8 L Albumin 2.7 L Actin IgG Antibody 8 Phosphatidylethanol Pending Phosphatidylethanol Quant Pending Discharge Plan Discharge Attending physician on discharge: Theresa Jerry Consulting providers: Nicole Lemon; Blanca Bhatt; Shanon Askew; Lg Mondragon; Ani Hernandez; Santo Levy; Hunter Schneider; Ulises Tom Discharging Clinician: Blanca Bhatt Anticipated Discharge Date/Time: 01/28/25 14:45 Patient Disposition: Home Activity: as tolerated Diet: low sodium Discharge Instructions: 1). Thrombocytopenia/transaminitis (elevated liver enzymes)/liver disease * I have prescribed oral Lasix and Aldactone which are both diuretics please take as indicated * Follow-up with Dr. Mondragon office in 1 month * [facility] Dr. Oviedo with hepatology at [facility] reviewing case for possible transjugular liver biopsy for further evaluation of your liver disease * Recommend low-sodium diet information is attached * Avoid all alcohol * I have stopped your atorvastatin at this time * Still pending final genetic test results to rule out hemochromatosis this will be reviewed with your GI physician * May find result on your Mychart 2). Cellulitis * I have prescribed oral Keflex please take as indicated and complete even if feeling better * Recommend elevating legs when at rest * May Karthik wrap lower extremity with ambulation How can you care for yourself at home? ? Keep track of any new symptoms or changes in your symptoms. ? Rest until you feel better. ? Be safe with medicines. Take your medicines exactly as prescribed. Call your doctor if you think you are having a problem with your medicine. ? Do not drive after taking a prescription pain medicine. ? Ensure to follow-up with primary care physician as indicated and provide updated medication list provided to you at discharge. When should you call for help? Call 911 anytime you think you may need emergency care. For example, call if: ? You passed out (lost consciousness). Call your doctor now or seek immediate medical care if: ? You have new symptoms like fever, difficulty breathing, Chest pain, vomiting, or rash. ? You have new or different pain. ? You are confused and are having trouble thinking clearly. ? Your symptoms are getting worse. Watch closely for changes in your health, and be sure to contact your doctor if: ? You do not get better as expected. Patient Instructions: Antibiotic Form, Acute Liver Failure (DC), Cellulitis (GEN), Pain Management (DC), Ascites (DC), Low-Sodium Diet (DC), Thrombocytopenia (DC), Blood Thinners (GEN) Patient Language: Amharic Stand Alone Forms: General Discharge Information Follow-up/Referrals: Angelo Morgan DO [Primary Care Provider, Family Practice] - 2 Weeks Lg Mondragon MD [Physician, Gastroenterology] - 4 Weeks Discharge Medications: New furosemide 40 mg Tablet 40 mg PO DAILY Qty: 30 0RF cephalexin 500 mg Capsule 500 mg PO Q6HR Qty: 45 0RF spironolactone [Aldactone] 50 mg Tablet 100 mg PO QAM Qty: 60 0RF Continued mupirocin [Centany] 2 % ointment 1 applic topical BID Qty: 22 1RF aspirin 81 mg tablet,delayed release (DR/EC) See Rx Instructions .ROUTE .COMPLEX Qty: 90 3RF Dose Instruction: TAKE 1 TABLET BY MOUTH EVERY DAY Rx Instructions: TAKE 1 TABLET BY MOUTH EVERY DAY metoprolol succinate 25 mg tablet extended release 24 hr See Rx Instructions .ROUTE .COMPLEX Qty: 15 5RF Dose Instruction: TAKE 1/2 (12.5MG) TABLET BY MOUTH DAILY Rx Instructions: TAKE 1/2 (12.5MG) TABLET BY MOUTH DAILY venlafaxine 75 mg capsule,extended release 24hr See Rx Instructions .ROUTE .COMPLEX Qty: 30 3RF Dose Instruction: TAKE 1 CAPSULE BY MOUTH DAILY Rx Instructions: TAKE 1 CAPSULE BY MOUTH DAILY allopurinol 100 mg tablet See Rx Instructions .ROUTE .COMPLEX Qty: 120 3RF Dose Instruction: TAKE 4 TABLETS BY MOUTH EVERY DAY Rx Instructions: TAKE 4 TABLETS BY MOUTH EVERY DAY bupropion HCl 300 mg tablet extended release 24 hr See Rx Instructions .ROUTE .COMPLEX Qty: 30 3RF Dose Instruction: TAKE 1 TABLET BY MOUTH EVERY DAY IN THE MORNING Rx Instructions: TAKE 1 TABLET BY MOUTH EVERY DAY IN THE MORNING Discontinued furosemide 20 mg tablet 20 mg PO DAILY amoxicillin-pot clavulanate 875-125 mg tablet 1 tablet PO BID Qty: 20 0RF atorvastatin 40 mg tablet See Rx Instructions .ROUTE .COMPLEX Qty: 30 11RF Dose Instruction: TAKE 1 TABLET BY MOUTH EVERY DAY Rx Instructions: TAKE 1 TABLET BY MOUTH EVERY DAY celecoxib 200 mg capsule See Rx Instructions .ROUTE .COMPLEX Qty: 60 1RF Dose Instruction: TAKE 1 CAPSULE BY MOUTH EVERY DAY Rx Instructions: TAKE 1 CAPSULE BY MOUTH EVERY DAY Date of admission: 01/25/25 16:54 Primary Care Provider: Angelo Morgan Admitting Provider: Rubens Aceves Attending physician on admission: Theresa Jerry Condition: Improved Quality VTE Prophylaxis VTE prophylaxis: mechanical ordered Hospitalist MIPS Heart Failure (Exclusion) Patient has history of Heart Transplant or Left Ventricular Assistive Device?: No IF YES, STOP HERE Heart Failure (Qualifier) Patient has current or prior documentation of LVEF less than or equal to 40%, or mod/servere depressed LVSF?: No IF NO, STOP HERE
== END 2025-01-28 15:25 | disposition home or self-care (01) ==
PROVIDERS: Internal Medicine Gastroenterology; Physician Assistant; Student in an Organized Health Care Education/Training Program; Admitting Provider Internal Medicine; PCP Family Medicine; Visit Provider General Practice
DX: R74.01 Elevation of levels of liver transaminase levels (principal); L03.115 Cellulitis of right lower limb; D69.6 Thrombocytopenia, unspecified; M79.89 Other specified soft tissue disorders; R10.33 Periumbilical pain; I10 Essential (primary) hypertension; E78.5 Hyperlipidemia, unspecified; F10.90 Alcohol use, unspecified, uncomplicated; K76.0 Fatty (change of) liver, not elsewhere classified; M87.9 Osteonecrosis, unspecified; R79.89 Other specified abnormal findings of blood chemistry; K82.8 Other specified diseases of gallbladder; G89.29 Other chronic pain; M54.50 Low back pain, unspecified; M25.551 Pain in right hip; M81.0 Age-related osteoporosis without current pathological fracture; K21.9 Gastro-esophageal reflux disease without esophagitis; G47.33 Obstructive sleep apnea (adult) (pediatric); Z99.89 Dependence on other enabling machines and devices; E66.01 Morbid (severe) obesity due to excess calories; Z68.42 Body mass index [BMI] 45.0-49.9, adult; Z87.891 Personal history of nicotine dependence; Z79.891 Long term (current) use of opiate analgesic; Z79.82 Long term (current) use of aspirin; Z91.199 Patient's noncompliance with other medical treatment and regimen due to unspecified reason; Z79.899 Other long term (current) drug therapy; Z82.49 Family history of ischemic heart disease and other diseases of the circulatory system; Z79.1 Long term (current) use of non-steroidal anti-inflammatories (NSAID); Z80.8 Family history of malignant neoplasm of other organs or systems; Z80.9 Family history of malignant neoplasm, unspecified; Z82.61 Family history of arthritis
CPT/HCPCS: 36415; 73130; 76705; 80053; 80074; 80076; 82248; 82550; 82728; 82784; 83540; 83550; 83690; 85025; 85055; 86015; 86706; 86709; 86803; 93306; 93976; 94002; 99212; A9270; G0463; J2543

== ENCOUNTER 2025-02-16 08:49 | Outpatient (CLI) | payer OTHER, SELFPAY ==
[2025-02-16 09:12] LABS: Hematocrit 47.6 % (40.0-54.0); Hemoglobin 16.0 g/dL (14.0-18.0); Mean Corpuscular HGB Conc 33.6 g/dL (32-36); Mean Corpuscular Hemoglobin 33.1 pg (27.0-31.0); Mean Corpuscular Volume 98.6 fL (78.0-102.0); Platelet Count Result 292 K/mm3 (150-420); Red Blood Count 4.83 M/mm3 (4.70-6.10); White Blood Count 4.9 K/mm3 (4.8-10.8)
--- OUTSIDE RECORDS SUMMARY | 2025-02-16 09:12 | XMS_ITS | Encounter Summary ---
Author Organization [facility] Health Address [address] [place] [address] Care Team Providers Care Supervisor Force Adjustment Name Role Phone SebastiánAngelo woods Primary Care Provider [phone] Encounter Details Date Type Department Care Team (Late st Contact Info) Description 02/11/2025 Orders Only [facility] - GI [address] [place] [phone] Zhou Oviedo MD [address] [place] [address] [address] DIV OF GASTROENTEROLOGY [place], [place] [id number] Social History Tobacco Use Types Packs/Day Years Used Date Smoking Tobacco: Former Cigarettes Smokeless Tobacco: Never Comments:Up to 3 packs daily - none in 15 years- currently uses nicorette gum Alcohol Use Standard Drinks/Week Comments Not Currently 0 (1 standard drink = 0.6 oz pure alcohol) used to drink 4 beers daily- none since 01/24/25 Sex and Gender Information Value Date Recorded Sex Assigned at Not on file Legal Sex Male 10:10 AM CDT Gender Identity Not on file Sexual Orientation Not on file documented as of this encounter Plan of Treatment Upcoming Encounters Date Type Department Care Team (Late st Contact Info) Description 05/17/2025 10:30 AM APPLIED EXERCISE PHYSIOLOGIST Office Visit [facility] [address] [place] [phone] Zhou Oviedo MD [address] [place] [address] [address] DIV OF GASTROENTEROLOGY [place], [place] [phone] documented as of this encounter Goals Goal Patient Goal Type Associated Problems Recent Progress Patient-Stated? Author Medication Management General On track( 025 1:14 PM CDT) Kelly Daugherty, RN Note: Expected end date: ongoing Interventions: Take all medications as prescribed Let your doctor know right away about any changes in your medications Make sure to request a refill of your medication at least one week prior to your last dose documented as of this encounter Visit Diagnoses Not on filedocumented in this encounter Care Teams Supervisor Force Adjustment Relationship Specialty Start Date End Date Angelo Morgan DO [address] [place] [address] PCP - General Family Medicine 02/11/25 documented as of this encounter
--- OUTSIDE RECORDS SUMMARY | 2025-02-16 09:12 | XMS_ITS | Clinical Summary ---
Author Organization [facility] Address [address] [place] [phone] Care Team Providers Care Vessel Master Name Role Phone Angelo Morganh Primary Care [...] Comments Blood Pressure 185/104 07/25/2023 3:56 PM ARCHITECTURAL SUPERINTENDENT Pulse 111 07/25/2023 3:56 PM ARCHITECTURAL SUPERINTENDENT Temperature 36.1 C (97 F) 07/25/2023 3:56 PM ARCHITECTURAL SUPERINTENDENT Respiratory Rate 18 07/25/2023 3:56 PM ARCHITECTURAL SUPERINTENDENT Oxygen Saturation 96% 07/25/2023 3:56 PM ARCHITECTURAL SUPERINTENDENT Inhaled Oxygen Concentration - - Weight 157.1 kg (346 lb 4.8 oz) 07/25/2023 3:56 PM ARCHITECTURAL SUPERINTENDENT Height 180.3 cm (5' 11) 07/25/2023 3:56 PM ARCHITECTURAL SUPERINTENDENT Body Mass Index 48.3 07/25/2023 3:56 PM ARCHITECTURAL SUPERINTENDENT Plan of Treatment Health Maintenance Due Date [...] patient's age to complete this topic Insurance [employer] OPEN ACCESS [employer]NA [facility] Care Teams Vessel Master Relationship Specialty Start Date End Date Angelo Morgan DO [address] [place] [address] PCP - General Family Medicine 02/13/21
--- OUTSIDE RECORDS SUMMARY | 2025-02-16 09:12 | XMS_ITS | Clinical Summary ---
Author Organization [facility] Address [address] [place] [address] Care Team Providers Care Shoe Shiner Name Role Phone Angelo Morgan DO Primary Care Provider [phone] Source Comments [facility] [employer],non-owned Affiliates and Associated Physician Practices is amultiple site organization consisting of ambulatory clinics and hospital sitesin [place], [place], [place] and [place]. This disclosure is being madepursuant to the Care Everywhere program and may not contain all information available regarding this patient. Last updated 18.[facility] [employer] Allergies No known active allergies Medications * Be aware that medications may not be up to date on this document. Alwaysverify current medications with the patient. NON FORMULARY REQUEST Indications: Pain pump for Rt hip pain. Morphine in pump. Per Dr Volodymyr Hogue MD [phone] Implanted 07/26/23. Pump is filled monthly. Active allopurinol (Zyloprim) 100 MG tablet Take 4 (four) tablets by mouth once daily 5 Active atorvastatin (Lipitor) 40 MG tablet Take 1 (one) tablet by mouth once daily 5 Active buPROPion XL 24hr (Wellbutrin-XL) 300 MG tablet Take 1 (one) tablet by mouth every morning 5 Active doxepin (Silenor) 6 MG tablet Take 1 (one) tablet by mouth nightly as needed FOR SLEEP 5 Active furosemide (Lasix) 40 MG tablet Take 1 (one) tablet by mouth once daily 5 Active metoprolol succinate XL 24hr (Toprol XL) 25 MG tablet Take 0.5 (one-half) tablet by mouth once daily as needed Active nicotine polacrilex (Nicorette) 4 MG gum Take 1 (one) Each by mouth as needed Active spironolactone (Aldactone) 50 MG tablet Take 2 (two) tablets by mouth once daily 5 Active venlafaxine XR 24hr (Effexor XR) 75 MG capsule Take 1 (one) capsule by mouth once daily 5 Active Encounters Date Type Department Care Team Description 02/11/2025 1:00 PM CDT Office Visit [facility] - [address] [phone] Zhou Oviedo MD Alcoholic liver disease (HCC) (Primary Dx) 02/11/2025 Travel 02/11/2025 Orders Only [facility] - [address] [phone] Zhou Oviedo MD 02/03/2025 Travel 02/03/2025 Telephone [facility] - [address] [phone] Zhou Oviedo MD Future Appointment (M for pt asking him to nabil back to schedule an appt to be seen by Dr. Oviedo per referral received from Dr. Mondragon. Per Dr. Oviedo, schedule on 02/11 at 1:00 PM. Records and images needed.) from Last 3 Months Social History Tobacco Use Types Packs/Day Years Used Date Smoking Tobacco: Former Cigarettes Smokeless Tobacco: Never Tobacco Cessation:Counseling Given: Not Answered Comments:Up to 3 packs daily- none in 15 years- currently uses nicorette [...] Sign Reading Time Taken Comments Blood Pressure 122/91 02/11/2025 1:03 PM CDT Pulse 105 02/11/2025 1:03 PM CDT Temperature 36.2 C (97.1 F) 02/11/2025 1:03 PM CDT Respiratory Rate - - Oxygen Saturation 98% 02/11/2025 1:03 PM CDT Inhaled Oxygen Concentration - - Weight 145.6 kg (321 lb) 02/11/2025 1:03 PM CDT Height 180.3 cm (5' 11) 02/11/2025 1:03 PM CDT Body Mass Index 44.77 02/11/2025 1:03 PM CDT Plan of Treatment Upcoming Encounters Date Type Department Care Team (Late st Contact Info) Description 05/17/2025 10:30 AM DRUG ABUSE RESISTANCE EDUCATION OFFICER Office Visit [facility] [facility] [place] [phone] Zhou Oviedo MD [facility] [place] [address] Health Maintenance Due Date Last Done Comments COLOGUARD (AGES 45-75) - COL ON CA SCREENING 1969 COLON MONITORING 1969 COLONOSCOPY - COLON CA SCREENING 1969 CT COLONOGRAPHY - COLON CA SCREENING 1969 Colorectal Cancer Screening 1969 FIT - COLON CA SCREENING 1969 FLEX SIG - COLON CA SCREENING 1969 HIV SCREENING 1984 HEPATITIS C SCREENING 03/20/1987 DTAP/TDAP/TD VACCINES (1 - Tdap) 1988 HEPATITIS B VACCINE (1 of 3 - 19+ 3-dose series) 1988 PNEUMOCOCCAL VACCINE 50+ (1 of 1 - PCV) 2019 ZOSTER VACCINE (1 of 2) 2019 DEPRESSION SCREENING 05/20/2024 COVID-19 VACCINE (1 - 2023-2 5 season) 2025 INFLUENZA VACCINE (#1) 2025 SCREENING FOR DIABETES 02/11/2025 HIB VACCINE Aged Out No longer eligi ble based on patient's age to complete this topic HPV VACCINE Aged Out No longer eligi ble based on patient's age to complete this topic MENINGOCOCCAL (Group B) VACC INE SHARED DECISION-MAKING Aged Out No longer eligibl e based on patient's age to complete this topic MENINGOCOCCAL GROUPS A/C/Y/W VACCINE Aged Out No longer eligible b ased on patient's age to complete this topic Goals Goal Patient Goal Type Associated Problems [...] one week prior to your last dose Insurance MEDICAID [employer] [facility] Care Teams Shoe Shiner Relationship Specialty Start Date End Date Angelo Morgan DO [address] [place] [id number] PCP - General Family Medicine 02/11/25
[2025-02-16 09:24] LABS: INR 1.0; Prothrombin Time 10.9 Seconds (9.50-12.1)
[2025-02-16 09:53] LABS: Alanine Aminotransferase 87 U/L (6-50); Albumin Level 4.6 g/dL (3.5-5.1); Alkaline Phosphatase 129 U/L (38-126); Anion Gap 12 mmol/L (4-12); Aspartate Amino Transferase 123 U/L (17-59); Bilirubin,Total 1.7 mg/dL (0.2-1.3); Blood Urea Nitrogen 18 mg/dL (9-20); Calcium 10.4 mg/dL (8.4-10.2); Carbon Dioxide 26 mmol/L (22-30); Chloride 99 mmol/L (98-107); Estimated Glomerular Filt Rate > 60; Glucose 94 mg/dL (65-110); Osmolality Calculated 285 mOsm/kg (285-295); Potassium 5.2 mmol/L (3.4-5.0); Sodium 137 mmol/L (137-145); Total Protein 9.9 g/dL (6.3-8.2)
== END 2025-02-16 08:50 | disposition home or self-care (01) ==
LOC: CHSLAB 08:52
PROVIDERS: PCP Family Medicine; Visit Provider Internal Medicine Gastroenterology
DX: K70.9 Alcoholic liver disease, unspecified (principal)
CPT/HCPCS: 36415; 80048; 80076; 82105; 85027; 85610

== ENCOUNTER 2025-02-24 11:20 | Outpatient (CLI) | payer OTHER, SELFPAY ==
[2025-02-24 11:35] LABS: Hematocrit 47.9 % (40.0-54.0); Hemoglobin 16.5 g/dL (14.0-18.0); Immature Granulocyte Percent A 0.2 % (0.0-0.0); Lymphocytes Absolute Auto 1.15 K/mm3 (1.10-4.50); Mean Corpuscular HGB Conc 34.4 g/dL (32-36); Mean Corpuscular Hemoglobin 33.0 pg (27.0-31.0); Mean Corpuscular Volume 95.8 fL (78.0-102.0); Nucleated Red Blood Cells Absolute Auto 0.00 K/mm3 (0.00-0.00); Nucleated Red Blood Cells Perc 0.0 % (0-0.0); Platelet Count Result 199 K/mm3 (150-420); Red Blood Count 5.00 M/mm3 (4.70-6.10); White Blood Count 6.0 K/mm3 (4.8-10.8)
[2025-02-24 12:00] LABS: Alanine Aminotransferase 71 U/L (6-50); Albumin Level 4.6 g/dL (3.5-5.1); Alkaline Phosphatase 127 U/L (38-126); Anion Gap 12 mmol/L (4-12); Aspartate Amino Transferase 72 U/L (17-59); Bilirubin,Total 1.0 mg/dL (0.2-1.3); Blood Urea Nitrogen 9 mg/dL (9-20); Calcium 10.5 mg/dL (8.4-10.2); Carbon Dioxide 25 mmol/L (22-30); Chloride 99 mmol/L (98-107); Estimated Glomerular Filt Rate > 60; Glucose 113 mg/dL (65-110); Osmolality Calculated 281 mOsm/kg (285-295); Potassium 4.1 mmol/L (3.4-5.0); Sodium 136 mmol/L (137-145); Total Protein 10.0 g/dL (6.3-8.2)
[2025-02-24 12:14] LABS: Iron 129 ug/dL (49-181)
[2025-02-24 12:24] LABS: Percent Iron Saturation 42 % (20-50)
[2025-02-24 12:35] LABS: Ferritin 482.00 ng/mL (11.1-264)
== END 2025-02-24 11:21 | disposition home or self-care (01) ==
LOC: CHSLAB 11:22
PROVIDERS: PCP Family Medicine; Visit Provider Internal Medicine Hematology & Oncology
DX: E83.110 Hereditary hemochromatosis (principal)
CPT/HCPCS: 36415; 80053; 82728; 83540; 83550; 85025